=== PATIENT | female | born 1955 | race Caucasian/White ===

== ENCOUNTER 2023-07-12 09:14 | Outpatient (REF) | payer OTHER, SELFPAY ==
[2023-07-12 14:19] LABS: MANUAL DIFF FLAG NO
[2023-07-12 14:26] LABS: Basophils Percent Auto 1.2 % (0-2); Eosinophils Absolute Auto 0.1 X10*3/uL (0.0-0.4); Eosinophils Percent Auto 1.8 % (0-4); Hematocrit 37.7 % (37.0-47.0); Hemoglobin 12.5 g/dl (12.0-16.0); Imm Gran Abs Auto 0.01 X10*3/uL (0.00-0.03); Imm Gran Pct Auto 0.3 % (0.0-0.4); Lymphocytes Absolute Auto 0.9 X10*3/uL (1.2-4.9); Lymphocytes Percent Auto 28.2 % (20-40); Mean Corpuscular HGB Conc 33.2 g/dl (31.0-35.0); Mean Corpuscular Hemoglobin 30.8 pg (27.0-33.0); Mean Corpuscular Volume 92.9 fL (80.0-98.0); Mean Platelet Volume 11.3 fL (9.4-12.3); Monocytes Absolute Auto 0.2 X10*3/uL (0.1-1.2); Monocytes Percent Auto 7.2 % (2-11); Neutrophils Percent Auto 61.3 % (45-73); Platelet Count 134 X10*3/uL (160-400); Red Blood Count 4.06 X10*6/uL (4.20-5.50); Red Cell Distribution Width 12.3 % (11.0-16.0); White Blood Count 3.3 X10*3/uL (4.8-10.8)
[2023-07-12 14:35] LABS: Estimated Average Glucose 108 mg/dL; Hemoglobin A1c % 5.4 % (<6.0)
[2023-07-12 15:18] LABS: Alanine Aminotransferase 15 U/L (0-31); Alkaline Phosphatase 38 U/L (39-117); Anion Gap 12 (12-20); Aspartate Amino Transferase 15 U/L (5-31); Bilirubin Total 0.5 mg/dL (0.0-1.0); Blood Urea Nitrogen 16 mg/dL (9-16); Carbon Dioxide 26 mmol/L (22-29); Chloride 108 mmol/L (96-108); Cholesterol 191 mg/dL (<200); Estimated Glomerular Filt Rate > 60; Glucose Random 64 mg/dL (60-115); HDL Cholesterol 73 mg/dL (>40); LDL Cholesterol Calculated 111 mg/dL (<100); Potassium 4.2 mmol/L (3.3-5.1); Sodium 142 mmol/L (135-145); TSH reflex Free T4 0.49 uIU/mL (0.32-4.0); Total Protein 6.2 g/dL (6.5-8.0); Triglycerides 38 mg/dL (<150)
== END 2023-07-12 09:15 | disposition home or self-care (01) ==
LOC: HO.CHCLDS 09:14
PROVIDERS: Visit Provider Internal Medicine
DX: Z00.00 Encounter for general adult medical examination without abnormal findings (principal); Z13.6 Encounter for screening for cardiovascular disorders
CPT/HCPCS: 36415; 80053; 80061; 83036; 84443; 85025

== ENCOUNTER 2023-10-02 13:06 | Outpatient (AMB) | payer OTHER, SELFPAY ==
--- NOTE | 2023-10-02 13:13 | AM.OFFWIN_ITS ---
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 She states it has recently become raised and is changing. She states it has never scabbed off or bled but it is itchy. She has not had a skin check or seen a credit administration officer regarding it. [facility] Social History Patient Tobacco Use Status: Never used Tobacco Review of Systems Const All systems reviewed & are unremarkable except as noted in HPI and below Physical Exam Vital Signs: Last Vital Signs Temp 98.5 F 10/02/23 13:18 Pulse 72 10/02/23 13:18 BP 118/72 10/02/23 13:18 Pulse Ox 98 10/02/23 13:18 Oxygen Delivery Method Room Air 10/02/23 13:18 BMI result Body Mass Index 21.5 Const General: cooperative, healthy appearing, comfortable, no acute distress and well developed Orientation/consciousness: patient oriented x3 Limitations: no limitations HEENT Head: Yes normal to inspection Eyes General: appearance normal, both eyes and all related structures Resp Effort & Inspection: normal respiratory effort and able to speak in complete sentences Skin Other: 0.5 cm round lesion with irregular borders, raised, multiple colors of white, brown (scabbing) and peach. No surrounding erythema or warmth, no drainage or bleeding. Neuro General: patient oriented x3 Assessment & Plan Assessment & Plan (1) Skin lesion of chest wall: Code(s): L98.9 - Disorder of the skin and subcutaneous tissue, unspecified Plan: Sent urgent referral to [facility] as patient clearly needs biopsy. Advised if they cannot get her in quickly, we could change the referral to [facility] in [place]. Orders: Referrals Dermatology Referral L98.9 - Disorder of the skin and subcutaneous tissue, unspecified Coding Level of Care Code New Pt Level 3 (52671) Diagnoses Skin lesion of chest wall L98.9
[2023-10-02 13:18] VITALS: BP 118/72; PULSE 72; TEMP 36.9; O2SAT 98; BMI 21.5
== END 2023-10-02 14:18 | disposition home or self-care (01) ==
PROVIDERS: Visit Provider Physician Assistant
DX: L98.9 Disorder of the skin and subcutaneous tissue, unspecified (principal)
CPT/HCPCS: 99202

== ENCOUNTER 2023-10-29 11:46 | Outpatient (AMB) | payer OTHER, SELFPAY ==
--- NOTE | 2023-10-29 12:09 | A.OFFPC_ITS ---
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 She states it has recently become raised and is changing. She states it has never scabbed off or bled but it is itchy. She has not had a skin check or seen a heel washer stringing machine operator regarding it, and a referral has already been placed.. She has history of osteoporosis diagnosed approximately 3 years ago, was not placed on any medication by her previous PCP, has no history of fractures. Complains of painful bunions which has recurred both feet. Patient states that she has had a bunionectomy more than 10 years ago. Requesting to be referred to see a ball shagger. States that she has history of anxiety and depression which has been stable and controlled, is currently weaning herself off escitalopram, now down to 5 mg daily. [facility] Medical History (Updated 10/29/23 @ 12:46 by Donna Leroy MD) Osteoporosis Bilateral bunions Anxiety and depression Surgical History (Updated 10/29/23 @ 12:48 by Donna Leroy MD) History of bunionectomy of both great toes History of tonsillectomy History of tubal ligation History of appendectomy Family History (Updated 10/29/23 @ 12:50 by Donna Leroy MD) Mother Acute myocardial infarction Alcoholism Father Atrial fibrillation TIA (transient ischemic attack) Alcoholism Brother Alcoholism Acute myocardial infarction Sister Alcoholism Social History (Updated 10/29/23 @ 12:53 by Donna Leroy MD) Housing: Condominium Alcohol intake: former Year quit: Used Comment: Used to drink cocktails, quit 35 years Patient Tobacco Use Status: Former Tobacco user Years Smoked: 8 years , quit 35 years ago e-Cigarette/Vaping Use: Never Used Substance Use Type: Marijuana Cognitive needs: No Hearing needs: No Vision needs: No Questionnaire PHQ-9 Over the last 2 weeks, how often have you been bothered by any of the following problems? 1. Little interest or pleasure in doing things: not at all 2. Feeling down, depressed, or hopeless: not at all 3. Trouble falling or staying asleep, or sleeping too much: not at all 4. Feeling tired or having little energy: not at all 5. Poor appetite or overeating: not at all 6. Feeling bad about yourself - or that you are a failure or have let yourself or your family down: not at all 7. Trouble concentrating on things, such as reading the newspaper or watching television: not at all 8. Moving or speaking so slowly that other people could have noticed. Or the opposite - being so fidgety or restless that you have been moving around a lot more than usual: not at all 9. Thoughts that you would be better off or of hurting yourself in some way : not at all Total score: 0 Depression Screening Interpretation: Negative Depression Screening Done: Yes 93456 - PHQ-9 Billing: Yes Source: Developed by Drs. Lamine Fong, Cecily Minor, Jerome Torre and colleagues, with an educational eva from [employer]. Thrive Questionnaire Date Thrive assessed: 10/29/23 I am a: Patient What is your living situation today?: I have a steady place to live Within the past 12 months, did the food you bought not last and you didn't have the money to get more?: Never true Within the past 12 months, did you worry whether your food would run out before you got money to buy more?: Never true Do you have trouble paying for medicines?: No Do you have trouble getting transportation to medical appointments?: No Do you have trouble paying your heating and electricity bill?: No Do you have trouble taking care of your child, family member or friend?: No Do you have trouble with day-to-day activities such as bathing, preparing meals, shopping, managing finances, etc.?: No Are you currently unemployed and looking for a job?: No Are you interested in more education?: No Please select the resources that you would like help with: None Currently or been in a relationship where the following occur: No concerns reported THRIVE Score: 0 MARIA ANTONIA-7 AMB Questionnaire MARIA ANTONIA-7 Date MARIA ANTONIA - 7 assessed: 10/29/23 Feeling nervous, anxious, or on edge: 0 = Not at all Not being able to stop or control worryin = Not at all Worrying too much about different things: 0 = Not at all Trouble relaxin = Not at all Being so restless that it is hard to sit still: 0 = Not at all Becoming easily annoyed or irritable: 0 = Not at all Feeling afraid as if something awful might happen: 0 = Not at all Total MARIA ANTONIA-7 score (0-4 normal; 5-9 mild; 10-14 moderate; 15-21 severe): 0 Source: Developed by Drs. Lamine Fong, Ceciyl Minor, Jerome Torre and colleagues, with an educational eva from [employer]. MARIA ANTONIA-7 Assessment Billing MARIA ANTONIA-7 Assessment Tool: MARIA ANTONIA-7 Assessment 99744 Review of Systems Const Denies body aches, Denies fatigue, Denies fever(s) and Denies headache(s) Eyes Denies itchy eyes and Reports requires corrective lenses ENT Denies dizziness, Denies headache(s) and Denies nasal congestion Card Denies chest pain, Denies lightheadedness, Denies palpitations and Denies dyspnea Resp Denies chest congestion, Denies cough, Denies dyspnea and Denies wheezing GI Denies abdominal pain, Denies change in bowel habits and Denies heartburn Denies urinary frequency, Denies dysuria and Denies urinary urgency Musc Reports no additional complaints Skin/Breast Denies breast pain, Denies breast mass, Denies lesions and Denies rash Neuro Denies dizziness and Denies headache(s) Psych Reports no additional complaints Endo Denies fatigue, Denies polydipsia, Denies polyuria and Denies palpitations Aller/Immun Denies itchy eyes, Denies seasonal rhinorrhea and Denies wheezing Physical exam (Primary Care) Vital Signs: Last Vital Signs Pulse 65 10/29/23 12:12 BP 102/70 10/29/23 12:12 Pulse Ox 98 10/29/23 12:12 Oxygen Delivery Method Room Air 10/29/23 12:12 BMI result Body Mass Index 21.8 Tobacco/Smoking Status: Tobacco use Status Tobacco use date assessed 10/29/23 10/29/23 12:12 Patient Tobacco Use Status Former Tobacco user 10/29/23 12:53 e-Cigarette/Vaping Use Never Used 10/29/23 12:53 PHQ-9: PHQ-9 Score PHQ-9: Total score 0 11/03/23 23:47 Depression Screening Interpretation: Negative Thrive Assessment: Date of Thrive Assessment Date Thrive assessed 10/29/23 10/29/23 12:17 Currently or been in a relationship where the following occur: No concerns reported Const General: no acute distress and alert Orientation/consciousness: patient oriented x3 HENMT Head: Yes normocephalic Ears: external ears normal General nose exam: Normal external nose present Face and sinus: Yes face symmetric Mouth: oropharynx normal and moist mucous membranes Eyes General: appearance normal, both eyes and all related structures Neck Neck: Yes full ROM, Yes no lymphadenopathy and Yes supple Resp Effort & Inspection: normal respiratory effort and able to speak in complete sentences Auscultation: clear to auscultation bilaterally Cardio Rate: regular rate Rhythm: regular rhythm Heart sounds: S1 normal heart sound present and S2 normal heart sound present GI Palpation (GI): Soft to palpation, nontender, no guarding and no masses Auscultation: normal bowel sounds General: Yes no CVA tenderness Back/Spine/Pelvis Back: no CVA tenderness and No back tenderness Skin Other: Slightly raised crusted lesion with irregular margins over lower sternum, normal surrounding skin, area nontender to palpation Neuro General: patient oriented x3, gait normal, moves all extremities, Normal light touch and pain sensation, no focal motor deficits and CN's II-XI intact bilaterally Cognition (Neuro): normal cognition Gait exam (Neuro): Normal gait present Motor exam (neuro): 5/5 motor strength present throughout Extrem Other: Enlarged MTP joint bilateral, area slightly tender to palpate General: Yes normal to inspection, Yes full ROM, Yes no joint enlargement, Yes no pedal edema and Yes normal gait Psych Appearance: grossly normal and well kempt Mental Status: mental status grossly normal Speech and movement: Normal speech and movement present Affect: normal affect Attitude: cooperative Thought process: Normal thought process present Thought content: Normal thought content present Assessment and Plan Assessment & Plan (1) Bilateral bunions: Code(s): M21.611 - Bunion of right foot; M21.612 - Bunion of left foot Plan: Podiatry consult ordered (2) Osteoporosis: Comment: Diagnosed approximately 2-3 years ago currently not on any medication, no his tory of fracture. Does not want Fosamax Code(s): M81.0 - Age-related osteoporosis without current pathological fracture Plan: Follow-up bone density scan ordered. In the meantime continue with doing regular weight-bearing exercise, take adequate calcium from dietary sources and take vitamin-D 3 supplements 2000 units daily. (3) Skin lesion of chest wall: Code(s): L98.9 - Disorder of the skin and subcutaneous tissue, unspecified Plan: Referral was already made to see heel washer stringing machine operator for further evaluation management, currently waiting for appointment schedule Orders: Orders XR DEXA axial skeleton 10/29/23 M81.0 - Age-related osteoporosis without current pathological fracture Referrals Podiatry Referral M21.611 - Bunion of right foot, M21.612 - Bunion of left foot Coding Level of Care Code New Pt Level 4 (18562) Diagnoses Bilateral bunions M21.611; M21.612 Osteoporosis M81.0 Skin lesion of chest wall L98.9 Additional Codes MARIA ANTONIA-7 Assessment Billing - MARIA ANTONIA-7 Assessment Tool: MARIA ANTONIA-7 Assessment 60304 ([id number])
[2023-10-29 12:12] VITALS: BP 102/70; PULSE 65; O2SAT 98; BMI 21.8
== END 2023-10-29 15:32 | disposition home or self-care (01) ==
PROVIDERS: Visit Provider Internal Medicine
DX: M21.611 Bunion of right foot (principal); M21.612 Bunion of left foot; M81.0 Age-related osteoporosis without current pathological fracture; L98.9 Disorder of the skin and subcutaneous tissue, unspecified
CPT/HCPCS: 99214

== ENCOUNTER 2023-11-21 12:59 | Outpatient (REF) | payer OTHER, SELFPAY ==
--- NOTE | ~2023-11-21 | MM_ITS ---
EXAMINATION: BONE DENSITOMETRY CLINICAL INDICATION: Age-related osteoporosis without current pathological fracture. COMPARISON: This is the patient's baseline examination. TECHNIQUE: Using a ChangeTip DXA System (software version: 13.1) manufactured by [employer], dual-energy x-ray absorptiometry was performed of the lumbar spine and left hip. The images are of good technical quality. Summary results are attached. FINDINGS: LEFT FEMUR, NECK: BMD 0.561 g/cm2, Z-score -1.6, T-score -3.4, osteoporosis. LEFT FEMUR, TOTAL: BMD 0.540 g/cm2, Z-score -2.1, T-score -3.7, osteoporosis. AP SPINE L1-L4: BMD 0.743 g/cm2, Z-score -1.7, T-score -3.6, osteoporosis. IDENTIFIED RISK FACTORS: Menopause, osteoporosis, parental hip fracture. HISTORY OF FRACTURE: None listed. MEDICATIONS: Vitamin D. MM/XR DEXA axial skeleton IMPRESSION: 1. DIAGNOSIS: Osteoporosis based on the lowest T-score value of -3.7 in the total femur applying World Health Organization criteria. 2. 10-YEAR FRACTURE RISK PREDICTION, FRAX: According to the guidelines, FRAX calculation should only be performed on patients in the osteopenia bone density category. Therefore, FRAX was not performed on this patient. 3. Treatment Recommendations: NOF guidelines recommend consideration for treatment in postmenopausal women and men age 50 and older presenting with the following: -A hip or vertebral (clinical or morphometric) fracture. -T-score less than or equal to -2.5 at the femoral neck or spine after appropriate evaluation to exclude secondary causes. -Low bone mass at the hip or spine and a 10-year fracture probability by FRAX of greater than or equal to 3% for hip fracture or greater than or equal to 20% for major osteoporotic fracture based on the [place] adapted WHO algorithm. 4. Other Recommendations: All treatment decisions require clinical judgment and consideration of individual patient factors, including patient preferences, comorbidities, previous drug use, risk factors not captured in the FRAX model (e.g. frailty, falls, vitamin D deficiency, increased bone turnover, interval significant decline in bone density) and possible under or overestimation of fracture risk by FRAX. Additional medical evaluation for secondary cause of low bone mineral density may be appropriate. FUTURE SCAN RECOMMENDATION: People with diagnosed cases of osteoporosis or at high risk for fracture should have regular bone mineral density tests. For patients eligible for Medicare, routine testing is allowed once every 2 years. The testing frequency can be increased to one year for patients who have rapidly progressing disease, those who are receiving or discontinuing medical therapy to restore bone mass, or have additional risk factors.
== END 2023-11-21 13:00 | disposition home or self-care (01) ==
LOC: HO.MAMMO 12:59
PROVIDERS: PCP Internal Medicine; Visit Provider Internal Medicine
DX: M81.0 Age-related osteoporosis without current pathological fracture (principal); Z78.0 Asymptomatic menopausal state
CPT/HCPCS: 77080

== ENCOUNTER 2023-11-23 07:57 | Outpatient (AMB) | payer OTHER, SELFPAY ==
--- NOTE | 2023-11-23 08:08 | AM.OFFWIN_ITS ---
Intake Vital Signs 11/23/23 08:10 Weight 127 lb BP 110/70 Blood Pressure Location Lt brachial Position Sitting Pulse 64 Pulse Source Pulse Oximeter Pulse Oximetry (%) 94 Oxygen Delivery Method Room Air Intake Visit Reasons: Cant hear Intake Note: Patient here for bilat ear hearing loss, could be ear wax. Patient Tobacco Use Status: Former Tobacco user Allergies No Known Allergies Allergy (Verified 11/23/23 08:10) Do you need a note to return to daycare/school/sports/work: No HPI Cant hear HPI Details This note is constructed using voice recognition software. While every effort has been made to ensure accuracy, chainsaw mechanic errors may have been included. The patient is a 59 year old for who presents to the clinic today with bilateral hearing loss for the past several months. She reports that she has had a history with cerumen impaction in the past, and has had irrigations. Her son pointed out that she is requiring the TV to be much louder than normal, so she decided to be seen. She denies fever, chills, cough, shortness of breath, injury to the ear. She has not been evaluated for hearing loss in the past. [facility] Medical History (Updated 10/29/23 @ 12:46 by Donna Leroy MD) Osteoporosis Bilateral bunions Anxiety and depression Surgical History (Updated 10/29/23 @ 12:48 by Donna Leroy MD) History of bunionectomy of both great toes History of tonsillectomy History of tubal ligation History of appendectomy Family History (Updated 10/29/23 @ 12:50 by Donna Leroy MD) Mother Acute myocardial infarction Alcoholism Father Atrial fibrillation TIA (transient ischemic attack) Alcoholism Brother Alcoholism Acute myocardial infarction Sister Alcoholism Social History (Updated 10/29/23 @ 12:53 by Donna Leroy MD) Housing: Condominium Alcohol intake: former Year quit: Used Comment: Used to drink cocktails, quit 35 years Patient Tobacco Use Status: Former Tobacco user Years Smoked: 8 years , quit 35 years ago e-Cigarette/Vaping Use: Never Used Substance Use Type: Marijuana Cognitive needs: No Hearing needs: No Vision needs: No Review of Systems Const All systems reviewed & are unremarkable except as noted in HPI and below Physical Exam Vital Signs: Last Vital Signs Pulse 64 07/26/24 08:10 BP 110/70 11/23/23 08:10 Pulse Ox 94 11/23/23 08:10 Oxygen Delivery Method Room Air 11/23/23 08:10 Const General: cooperative, healthy appearing, comfortable and no acute distress Orientation/consciousness: patient oriented x3 HEENT Head: Yes normal to inspection and Yes normocephalic Ears: EAC's normal, mastoids normal and unable to visualize TM (cerumen impaction) on the left General nose exam: Normal external nose present Face and sinus: Yes normal facial exam Resp Effort & Inspection: normal respiratory effort and able to speak in complete sentences Neuro General: patient oriented x3 Office Procedures Cerumen Removal From which ear canal was the cerumen removed: left Removal: irrigation Notes: patient tolerated procedure well [id number] Irrigation/Lavage Assessment & Plan Assessment & Plan (1) Hearing loss of both ears: Code(s): H91.93 - Unspecified hearing loss, bilateral Qualifiers: Hearing loss type: unspecified Qualified Code(s): H91.93 - Unspecified hearing loss, bilateral Plan: Cerumen impaction on the left may contribute partially, however there is no cer umen impaction on the right and she reports hearing loss on that side as well. Advised follow up with PCP in consideration of referral to learning support specialist or audiology. (2) Impacted cerumen, left ear: Code(s): H61.22 - Impacted cerumen, left ear Plan: In office irrigation successful of left ear. Patient tolerated well. Plan See above for full details and plan. Coding Level of Care Code Est Pt Level 4 (19560) Diagnoses Bilateral hearing loss, unspecified hearing loss type H91.93 Hearing loss type: unspecified Impacted cerumen, left ear H61.22 CPT Codes Office Procedure - CPT: 42411-Wxg Irrigation/Lavage ([id number])
[2023-11-23 08:10] VITALS: BP 110/70; PULSE 64; O2SAT 94
== END 2023-11-23 08:42 | disposition home or self-care (01) ==
PROVIDERS: PCP Internal Medicine; Visit Provider Registered Nurse
DX: H91.93 Unspecified hearing loss, bilateral (principal); H61.22 Impacted cerumen, left ear
CPT/HCPCS: 69209; 99213

== ENCOUNTER 2024-01-04 07:59 | Outpatient (AMB) | payer OTHER, SELFPAY ==
[2024-01-04 08:05] VITALS: BP 110/72; PULSE 66; TEMP 36.6; O2SAT 99; BMI 20.9
--- NOTE | 2024-01-04 08:05 | MHC.OFFWIV ---
Intake Vital Signs 01/04/24 08:05 Height 5 ft 4 in Weight 122 lb BMI 20.9 BP 110/72 Blood Pressure Location Lt brachial Position Sitting Pulse 66 Pulse Source Pulse Oximeter Temp 97.8 F Temp Source Oral Pulse Oximetry (%) 99 Oxygen Delivery Method Room Air Intake Visit Reasons: EP Cold symptoms,heavy in chest Intake Note: Patient here for chest heaviness and congestion. she states it has been present for about 1 week and is getting better but would like a chest xray. Patient Tobacco Use Status: Former Tobacco user Allergies No Known Allergies Allergy (Verified 01/04/24 08:08) Do you need a note to return to daycare/school/sports/work: No HPI HPI Comments History of Present Illness Details Patient is a 68-year-old female complaining of a week of a sore throat, chest congestion, a productive cough and chest heaviness. She states she has been inhaling steam 3 to 4 times a day to try to clear up her head congestion and it seems to be working because she feels much better today than she did even just 2 or 3 days ago. She denies any fevers nausea or vomiting [facility] Medical History (Updated 01/04/24 @ 08:28 by Sendy Uribe PA-C) Bilateral hearing loss Osteoporosis Bilateral bunions Anxiety and depression Surgical History (Updated 10/29/23 @ 12:48 by Donna Leroy MD) History of bunionectomy of both great toes History of tonsillectomy History of tubal ligation History of appendectomy Family History (Updated 10/29/23 @ 12:50 by Donna Leroy MD) Mother Acute myocardial infarction Alcoholism Father Atrial fibrillation TIA (transient ischemic attack) Alcoholism Brother Alcoholism Acute myocardial infarction Sister Alcoholism Social History (Updated 10/29/23 @ 12:53 by Donna Leroy MD) Housing: Condominium Alcohol intake: former Year quit: Used Comment: Used to drink cocktails, quit 35 years Patient Tobacco Use Status: Former Tobacco user Years Smoked: 8 years , quit 35 years ago e-Cigarette/Vaping Use: Never Used Substance Use Type: Marijuana Cognitive needs: No Hearing needs: No Vision needs: No Review of Systems Const All systems reviewed & are unremarkable except as noted in HPI and below Physical Exam Vital Signs: Last Vital Signs Temp 97.8 F 01/04/24 08:05 Pulse 66 01/04/24 08:05 BP 110/72 01/04/24 08:05 Pulse Ox 99 01/04/24 08:05 Oxygen Delivery Method Room Air 01/04/24 08:05 BMI result Body Mass Index 20.9 Const General: cooperative, healthy appearing, comfortable and no acute distress Orientation/consciousness: patient oriented x3 Limitations: no limitations HEENT Head: Yes normal to inspection Ears: hearing grossly normal bilaterally, external ears normal and TM's normal bilaterally General nose exam: Normal external nose present, Normal nares present and No nasal discharge present Face and sinus: Yes normal facial exam Mouth: Normal oral and palatal mucosa present and moist mucous membranes Throat: Yes tonsils normal, Yes uvula midline and Yes posterior oropharynx abnormal (Erythema) Eyes General: appearance normal, both eyes and all related structures Neck Neck: Yes normal visual inspection Resp Effort & Inspection: normal respiratory effort, able to speak in complete sentences, no respiratory distress, not tachypneic, no tripod positioning and no use of accessory muscles Auscultation: clear to auscultation bilaterally Cardio Rate: regular rate Rhythm: regular rhythm Heart sounds: normal S1 and S2 Skin General skin exam: no rashes or lesions noted Neuro General: patient oriented x3 Extrem General: Yes normal to inspection and Yes no clubbing, cyanosis or edema Assessment & Plan Assessment & Plan (1) URI (upper respiratory infection): Code(s): J06.9 - Acute upper respiratory infection, unspecified Qualifiers: URI type: unspecified viral URI Qualified Code(s): J06.9 - Acute upper respiratory infection, unspecified Plan: Sent flu COVID and RSV, vital signs are stable, lung sounds are clear, no indication for a chest x-ray. Recommended patient continue doing what she is doing with [id number] medications and steam. Plan see above Coding Level of Care Code Est Pt Level 3 (49779) Diagnoses Viral upper respiratory tract infection J06.9 URI type: unspecified viral URI
== END 2024-01-04 08:27 | disposition home or self-care (01) ==
PROVIDERS: PCP Internal Medicine; Visit Provider Physician Assistant
DX: J06.9 Acute upper respiratory infection, unspecified (principal)
CPT/HCPCS: 99213

== ENCOUNTER 2024-01-04 10:36 | Outpatient (REF) | payer OTHER, SELFPAY ==
[2024-01-04 11:46] LABS: Influenza A PCR NEGATIVE (Negative); Influenza B PCR NEGATIVE (Negative); Resp Syncy Virus RNA Qual PCR NEGATIVE (Negative); SARS COV2 PCR INHOUSE NEGATIVE (Negative)
== END 2024-01-04 10:37 | disposition home or self-care (01) ==
LOC: HO.HMGCLNP 10:36
PROVIDERS: Visit Provider Physician Assistant
DX: J06.9 Acute upper respiratory infection, unspecified (principal)
CPT/HCPCS: 0241U

== ENCOUNTER → 2024-02-14 13:30 | Outpatient (BNV) | payer OTHER, SELFPAY | PROVIDERS: PCP Internal Medicine; Visit Provider Internal Medicine | DX: Z12.31 Encounter for screening mammogram for malignant neoplasm of breast (principal) | CPT/HCPCS: 77063; 77067 ==

== ENCOUNTER 2024-02-14 13:31 | Outpatient (REF) | payer OTHER, SELFPAY ==
--- NOTE | ~2024-02-14 | MM_ITS ---
EXAMINATION: MM SCREENING DIGITAL BREAST TOMOSYNTHESIS, BILATERAL CLINICAL INFORMATION: Screening. Asymptomatic. COMPARISON: Mammography: Comparison is made with available priors TECHNIQUE: Digital breast mammography with tomosynthesis is performed in both the craniocaudal and mediolateral oblique views along with computer-aided detection (CAD). FINDINGS: The breasts are heterogeneously dense, which may obscure small masses (ACR BI-RADS breast composition Category c). There are no significant masses, abnormal calcifications, or other abnormalities. MM/MM tomosynthesis screening BI IMPRESSION: No mammographic evidence of malignancy. ASSESSMENT: BI-RADS BI-RADS 1 - Negative RECOMMENDATION: Routine annual mammography screening. 1 year F/U This examination should not preclude the clinical evaluation of a suspicious palpable abnormality. This patient's information was entered into a reminder system with a target due date for their next mammogram. Electronically signed by: Damaris Heard DO 02/26/2024 12:27 PM EDT
== END 2024-02-14 13:32 | disposition home or self-care (01) ==
LOC: HO.MAMMO 13:31
PROVIDERS: PCP Internal Medicine; Visit Provider Nurse Practitioner Family
DX: Z12.31 Encounter for screening mammogram for malignant neoplasm of breast (principal)
CPT/HCPCS: 77063; 77067

== ENCOUNTER 2024-04-09 09:41 | Outpatient (AMB) | payer OTHER, SELFPAY ==
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
[2024-04-09 10:07] VITALS: BP 104/70; PULSE 60; O2SAT 96; BMI 21.1
--- OUTSIDE RECORDS SUMMARY | 2024-04-09 23:52 | XMS_ITS | Patient Health Record ---
Author Organization [facility] Address [address] [place] [address] Care Team Providers Care Assistant Basketball Coach Name Role Phone Mariaa CLIFTON, Donna Kevin Primary Care Provider Un available Becky Johnson Unavailable [phone] Erica Iglesias Unavailable [phone] Allergies Allergen (clinical drug ingredient) Drug/Non Drug Allergy documented on EMR Reaction Allergy Type Onset Date Status codeine Codeine Unknown Drug Allergy Active Results Component Value Reference Range Notes X ray : Foot, left 3V Reviewed date:03/31/2024 04:46:51 PM Interpretation:See Examination above Performing Lab: Notes/Report: See Examination above X ray : Foot, right 3V Reviewed date:03/31/2024 04:47:00 PM Interpretation:See Examination above Performing Lab: Notes/Report: See Examination above Reason For Referral Diagnosis 1 Pain in unspecified foot (M79.673) Referring Provider First Name Donna Mckeon Referring Provider Last Name Mariaa Referring Provider Speciality Internal M edicine [facility] Referred Provider Erica Iglesias Referred Address [address] ,[place], [place],[address], Referred Provider Specialty Podiatry Referral Priority Routine Diagnosis 1 Hallux valgus (acqui red), left foot (M20.12) Diagnosis 2 Hallux valgus (acqui red), right foot (M20.11) Diagnosis 3 Hammertoe of right f oot (M20.41) Diagnosis 4 Hammertoe of left fo ot (M20.42) Diagnosis 5 Bursitis of right fo ot (M77.51) Diagnosis 6 Bursitis of left arnold t (M77.52) Diagnosis 7 Pain in right ankle and joints of right foot (M25.571) Diagnosis 8 Pain in left ankle a nd joints of left foot (M25.572) Diagnosis 9 Pain in right foot ( M79.671) Diagnosis 10 Pain in left foot (M 79.672) Referring Provider First Name Donna Mckeon Referring Provider Last Name Mariaa Referring Provider Speciality Internal M edicine [facility] Referred Provider Becky Johnson Referred Address [address] [place], [place],[address], Referred Provider Specialty Podiatry Referral Priority Routine Medications Medication SIG (Take, Route, Frequency, Duration) Notes Start Date End Date Status Escitalopram Oxalate 5 MG 1 tablet Orally Once a day Active Social History Tobacco Use: Social History Observation Description Date Details (start date - stop date) Former Smoker NA - NA Tobacco Use/Smoking Question Answer Notes Are you a: former smoker Additional Findings: Tobacco Non-User Current no n-smoker Alcohol Screen Question Answer Notes Did you have a drink containing alcohol in the p ast year? No Points 0 Interpretation Negative Tobacco use other than smoking: Question Answer Notes Are you an other tobacco user? No Problems Problem Type SNOMED Code ICD Code Onset Dates Problem Status W/U Status Risk Notes Problem Acquired hallux valgus (99290747) Hallux valgus (acquired), left foot (M20.12) Active confirmed Problem Acquired hallux valgus (71507394) Hallux valgus (acquired), right foot (M20.11) Active confirmed Problem 679879798 Hammertoe of left foot (M20.42) Active confirmed Problem 543904689 Hammertoe of right foot (M20.41) Active confirmed Vital Signs Blood pressure diastolic 70 mm Hg 03/31/2024 Height 5 ft 4 in in 03/31/2024 Blood pressure systolic 120 mm Hg 03/31/2024 Weight 127 lbs 03/31/2024 BMI 21.8 kg/m2 03/31/2024 Encounters Encounter Location Date Provider Diagnosis [facility] [address] [place] [address] 03/31/2024 Erica Black Pain in left foot M79.672 ; Hallux valgus (acquired), right foot M20.11 ; Pain in left ankle and joints of left foot M25.572 ; Bursitis of left foot M77.52 ; Hallux valgus (acquired), left foot M20.12 ; Pain in right foot M79.671 ; Pain in right ankle and joints of right foot M25.571 ; Bursitis of right foot M77.51 ; Medial crossover toe, left foot M20.5X2 ; Medial crossover toe, right foot M20.5X1 ; Hammertoe of right foot M20.41 and Hammertoe of left foot M20.42 [facility] [address] [place] [address] 12/20/2023 Erica Iglesias Assessments Encounter Date Diagnosis (ICD Code) Assessment Notes Treatment Notes Treatment Clinical Notes Section Notes 03/31/2024 Pain in left foot (ICD-10 - M79.672) 03/31/2024 Hallux valgus (acquired), right foot (ICD-10 - M20.11) 03/31/2024 Pain in left ankle and joints of left foot (ICD-10 - M25.572) 03/31/2024 Bursitis of left foot (ICD-10 - M77.52) 03/31/2024 Hallux valgus (acquired), left foot (ICD-10 - M20.12) 03/31/2024 Pain in right foot (ICD-10 - M79.671) 03/31/2024 Pain in right ankle and joints of right foot (ICD-10 - M25.571) 03/31/2024 Bursitis of right foot (ICD-10 - M77.51) 03/31/2024 Medial crossover toe, left foot (ICD-10 - M20.5X2) 03/31/2024 Medial crossover toe, right foot (ICD-10 - M20.5X1) 03/31/2024 Hammertoe of right foot (ICD-10 - M20.41) 03/31/2024 Hammertoe of left foot (ICD-10 - M20.42) Plan Of Treatment Next Appt Details Provider Name:Becky madden, 06/11/2024 03:00:00 PM, [address] [place], [address], Insurance Providers Payer Name Payer Address Payer Phone Subscriber Number Group Number Insured Name Patient Relationship to Insured Coverage Start Date Coverage End Date [facility] [address] [place] [phone] [id number] Kori Barron Self - patient is the insured Medical (General) History Medical History History ICD Code Anxiety covid-19 Depression Osteoporosis Reflux ( GERD) Measles Chicken pox Mumps Surgical History Surgery Date(Month/Year) appendectomy 1969 tonsillectomy 1960 bunionectomy 1989
--- OUTSIDE RECORDS SUMMARY | 2024-04-09 23:52 | XMS_ITS ---
Author Organization [facility] Address [address] [place] [address] Care Team Providers Care Pathologist Assistant Name Role Phone Mariaa CLIFTON, Donna Kevin Primary Care Provider Un available Becky Johnson Unavailable [phone] Black, Erica Unavailable [phone] REASON FOR VISIT FACETER PPWK Entered Encounters Encounter Location Date Provider Diagnosis [address] [address] 12/20/2023 Ericabob Iglesias Plan Of Treatment Next Appt Details Provider Name:Becky madden, 06/11/2024 03:00:00 PM, [address] [place] [address], [address], Progress Notes * Irvin BARRONOB:1955 ( 67 yo F)Acc No.[id number]:12/20/2023 Patient:?Kori Barron :1955???Age:67 Y???Sex:Female Address:[address] [place] [address] [address] , [place] [address] * true * Date:? Generated for Printi ng/Faxing/eTransmitting on:?04/09/2024 11:52 PM EST
--- OUTSIDE RECORDS SUMMARY | 2024-04-09 23:52 | XMS_ITS ---
Author Organization [facility] Address [address] [place] [address] Care Team Providers Care Casing Fluid Tender Name Role Phone Mariaa CLIFTON, Donna Kevin Primary Care Provider Un available Perica, Becky Unavailable [phone] Black, Erica Unavailable [phone] Allergies Allergen (clinical drug ingredient) Drug/Non Drug [...] above Performing Lab: Notes/Report: See Examination above REASON FOR VISIT Pcp-01/21, Foot pain Medications Medication SIG (Take, Route, Frequency, Duration) [...] Status Risk Notes Problem Acquired hallux valgus (48100256) Hallux valgus (acquired), left foot (M20.12) Active confirmed Problem Acquired hallux valgus (36035673) Hallux valgus (acquired), right foot (M20.11) Active confirmed Problem 442109710 Hammertoe of right foot (M20.41) Active confirmed Problem 702595229 Hammertoe of left foot (M20.42) Active confirmed Vital Signs Height 5 ft 4 in in 03/31/2024 Weight 127 lbs 03/31/2024 BMI 21.8 kg/m2 03/31/2024 Blood pressure systolic 120 mm Hg 03/31/20 24 Blood pressure diastolic 70 mm Hg 024 Encounters Encounter Location Date Provider Diagnosis [facility] [address] [address] 03/31/2024 Erica Black Pain in left foot [...] M20.41 and Hammertoe of left foot M20.42 Assessments Encounter Date Diagnosis (ICD Code) Assessment [...] M20.42) Plan Of Treatment Next Appt Details Follow Up: prn, Reason: Provider Name:Becky madden, 06/11/2024 03:00:00 PM, [address] [place], [address], Progress Notes * Kori BARRON LDOB:1955 (68 yo F)Acc No.[id number]:03/31/2024 Progress Notes Patient:?Kori BARRON Provider:?Erica Iglesias DPM :1955???Age:68 Y???Sex:Female D ate:03/31/2024 Address:[address] [place], [place] [id number] Pcp:Amena Ramos Subjective: * Chief Complaints: * ???Pcp-01/21Foot pain * HPI: ???Foot Pain:?Location:?Inside, Great toe joint, B/L.?Duration:?, several years.?Course:?worse.?Aggravated:?any pressure.?Treatments:?rest/alter normal daily activity, previous sx 20 years ago b/l.? * ROS:?General/Constitutional:?Nausea?denies.?Vomiting?denies.?Hunger Thirst?denies.?Loss appetite?admits.?Chills?denies.?Fatigue?denies.?Fever?denies.?Night Sweats?denies.?Unexplained weight loss?denies.?Unexplained weight gain?denies.?HEENTM:?Dentures?denies.?Dizziness?denies.?Glasses/contacts?admits.?Retinopathy?de nies.?Blurred/double vision?denies.?TMJ?admits.?Discharge/drainage?denies.?Implants?denies.?Sore throat?denies.?Dental implants?admits.?Hard of hearing ?denies.?Difficulty chewing/swallowing/speaking?denies.?Nose bleeds?denies.?Sore mouth?denies.?Respiratory:?On Oxygen?denies.?Pneumonia/pleurisy?denies.?Bronchitis?denies.?Emphysema?denies.?C oughing?denies.?Cough blood?denies.?Shortness of breath?denies.?Wheezing?denies.?Cardiovascular:?Pacemaker?denies.?MVP?denies.?WPW?denies.?CHF?denies.?Heart attack?denies.?Septal defect?denies.?Rapid beat?denies.?Chest pain ?denies.?Atrial Fib.?denies.?Murmur/Palpitations?denies.?Gastrointestinal:?Hemorrhoids?denies.?Stomach/Abdominal pain?denies.?Dark blood stool?denies.?Irritable bowel ?admits.?Constipation?denies.?Diarrhea?denies.?Hematology:?Swelling?denies.?Clots?denies.?Varicose Veins?denies.?Bruising?denies.?Bleeding problem?denies.?Genitourinary:?Blood urine?denies.?Frequent/Painfu/urination/bladder control?denies.?Kidney stones?denies.?Infection (UTI)?denies.?Nephropathy?denies.?sex trans dis (STD)?denies.?Prostate?denies.?Musculoskeletal:?Hammertoes?admits.?Bunions?admits.?Back Pain?denies.?Muscle Cramps/ Resting?denies.?Muscle cramps / walking?denies.?Generalized aches and pains?denies.?Weakness?denies.?Integ.:?Romeo?denies.?Scars?denies.?Corns/calluses?admits.?Ingrown nails?denies.?Painful nails?denies.?Open Sores?denies.?Rashes?denies.?Neurologic:?Difficulty sleeping?denies.?Brain disorder?denies.?Numbness?denies.?Balance trouble?denies.?Confusion?denies.?Fainting/blackouts?denies.?Tingling?denies.?Tr emors?denies.? * Medical History:? * Surgical History:?appendecto my 1970tonsillectomy 1959bunionectomy 1989 * Hospitalization/Major Diagno stic Procedure:?Denies Past Hospitalization * Family History:?Mother: dece ased, diagnosed with Unspecified heart disease.?Father: , diagnosed with Unspecified heart disease.?Siblings: cancer.? * Social History:?Tobacco Use:?Tobacco Use/Smoking?Are you a:?former smoker ?Additional Findings: Tobacco Non-User?Current non-smoker ?Tobacco use other than smoking?Are you an other tobacco user??No ???Drugs/Alcohol:?Drugs?Have you used drugs other than those for medical reasons in the past 12 months??No ?Alcohol Screen?Did you have a drink containing alcohol in the past year??No ?Points?0 ?Interpretation?Negative ???Miscellaneous:?Caffeine: no. ?Children: yes, 2. ?Exercise: yes, playing guitar, bones and balance classes, bike riding, reading. ?Marital status: . * Medications:?TakingEscitalop lynne Oxalate 5 MG Tablet 1 tablet Orally Once a day Medication List reviewed and reconciled with the patientTaking Escitalopram Oxalate 5 MG Tablet 1 tablet Orally Once a day Medication List reviewed and reconciled with the patient * Allergies:?Codeineyes[Allerg ies Verified] Objective: * Vitals:?Ht: 5 ft 4 in, Wt:12 7, BMI:21.8, Shoe size: 9-9.5, BP:120/70mm Hg, Ht- cm: 162.56 cm, Wt-k.61 kg. * Examination: ???General Examination: ?GENERAL APPEARANCE:?Reveals a pleasant, alert, well nourished, well- developed, well hydrated individual, who demonstrates proper attention to hygiene/body habitus, and is in no acute distress, Pt serves as own historian for office visit today.?ORIENTED:?person, place, and time.?Orthopedic: ?MUSCLE STRENGTH:?5/5 all groups in a symmetrical fashion, B/L.?GAIT ABNORMALITY:?Pronated, abducted angle and base of gate, B/L.?FOOT MORPHOLOGY:?Pes Planus structure, Semi-rigid, B/L.?BUNION:? Medially prominent 1st MPJ, (+) Pain on palpation, inflammation present medially, Lateral tracking 1st MPJ incompletely reducible, R< L , Limited 1st MPJ Dorsal ROM,Limited 1st MPJ Plantar ROM b/l.?DIGITAL DEFORMITIES:?Digital contracture, PIPJ, 2-5 B/L, incompl-reducible with WB, or to push-up test overlapping 2nd digits b/l, medial drift to digits 2-5 b/l R>L.?Neurological: ?SENSORY:?Neurological exam reveals intact sensorium, pain sensation normal, vibration sensation intact, pinprick sensation is normal in the lower extremities, Pt denies, anesthesia, burning, paresthesia, tingling, B/L.?TINEL'S COMPRESSION:? Negative, Saphenous nerve distribution, B/L.?Vascular: ?DP PULSES(B):?2/4, B/L.?PT PULSES(B):?2/4, B/L.?CAPILLARY FILL TIME:?immediate, all digits, B/L.?TROPHIC CONDITION-TEXTURE/ELASTICITY/TURGOR/HAIR GROWTH(B):?normal, B/L.?TEMPERTURE GRADIENT(C):?normal, warm to cool, proximal to distal, B/L, B/L.?PIGMENTATION:?normal, B/L.?EDEMA(C):?absent, B/L.?X-Rays - IMAGING REPORT: ?Clinical Indication(s):? Evaluate Biomechanical Deformity.?Views:?3 views of Foot, AP, LAT, MO, B/L??Taken by trained?Podiatric Edm Operator (?SF ).?Findings:?normal bone and soft tissue density consistent for patients age and sex.?HAV:?Increased First Intermetatarsal angle and Hallux Abductus angle consistent with Bunion deformity noted, hypertrophy of the dorsal and medial 1st MTH without subchondral cyst, short 1st MT, previous sx evident at 1st MTPJ and Shu with cerclage noted b/l proximal phalange.?Fracture:?Negative fractures identified.?Dermatologic: ?SKIN FINDINGS:?Skin exam reveals normal color, texture, elasticity, and turgor. There are no masses, nor excrescences. The interspaces are clear, B/L.? Assessment: * Assessment: 1.?Pain in left foot - M79.6 72???2.?Hallux valgus (acquired), right foot - M20.11 (Primary)???3.?Pain in left ankle and joints of left foot - M25.572???4.?Bursitis of left foot - M77.52???5.?Hallux valgus (acquired), left foot - M20.12???6.?Pain in right foot - M79.671???7.?Pain in right ankle and joints of right foot - M25.571???8.?Bursitis of right foot - M77.51???9.?Medial crossover toe, left foot - M20.5X2???10. Medial crossover toe, right foot - M20.5X1???11.?Hammertoe of right foot - M20.41???12.?Hammertoe of left foot - M20.42??? Plan: * Treatment: 2.?Pain in right foot?Imaging: X ray : Foot, right 3V (Performed Date - 03/31/2024)?See Examination above * Procedure Codes:?11738 X-RAY EXAM OF LEFT FOOT 3V, Modifiers: 26 , [id number] X-RAY EXAM OF RIGHT FOOT 3V, Modifiers: 26 , RT * Preventive Medicine:? ??Counseling:?Discussion:?-04: Office or other outpatient visit for the evaluation and management of a new patient, which required a medically appropriate history and/or examination and MODERATE level of DECISION MAKING for: 1 OR MORE CHRONIC PROBLEM(S) THATS WORSENING, 2 STABLE CHRONIC PROBLEMS, A NEWLY DIAGNOSED PROBLEM WITH UNCERTAIN PROGNOSIS, AN ACUTE COMPLICATED INJURY WITH MULTIPLE TREATMENT OPTIONS, OR AN ACUTE PROBLEM WITH ACCOMPANYING SYSTEMIC SYMPTOMS, THAT POSE(S) A MODERATE RISK OF MORBIDITY. THIS CONDITION MAY ALSO INCLUDE RX DRUG MANAGEMENT, OR A DECISON FOR MINOR SURGERY. The visit on the day of the encounter encompassed interpreting the data and educating the patient as to the nature of their condition, treatment options available according to their individual PMH, meds, allergies, and overall health/living conditions, as well as any potential risks or complications that may occur from a failure to adhere to, and participate in, the recommended course of therapy. The discussion included a complete verbal, and/or written explanation of the examination results, any x-rays taken, the proposed diagnosis, and outline of the treatment plan. A schedule for future care needs was also explained. The patient verbalized an understanding of the instructions at this time and agreed to be an active participant in their treatment. If the patient should think of any questions or concerns after the visit, I have encouraged the patient to call the office.?BioMech.:?I discussed the Pts foot biomechanics with them and how it relates to their problem, Discussed and reviewed the X-rays with the patient. We discussed how the findings relate to the patients symptoms/complaints. Answered any and all questions..?Digital Treatment:?HV - I explained to the patient the risks/benefits of all the different treatment options for their pain including: No treatment at all, Rest, Ice, New/supportive/wider/deeper Shoegear, Digital Padding/Strapping/Taping/Bracing/Gel protective sleeves, Foot/Ankle AFO Bracing, Stretching exercises, Deep Tissue Massage, Arch support/shoe inserts with splay metatarsal padding, and Custom orthoses. I insisted that any digital devices be removed daily and not worn overnight for safety. The patient is to carefully examine the toes daily for any skin irritation while using any splinting or padding device. The advantages and disadvantages of each option were discussed and the patients questions re: shoegear, padding, custom vs prefabricated inserts, activity level, and consistency in home treatment regimens for optimal success were answered to their verbally confirmed satisfaction.?Discussion for Bunion sx:?Several different types of Bunion surgeries were discussed with the patient, including, but not limited to: Modified Gilmore bone removal and soft tissue release/realignment, Tyler osteotomy with soft tissue release/realignment and internal fixation, Shaft v Base wedge osteotomies with internal fixation, and Lapidus joint fusion procedures with internal fixation. We discussed the risks of having surgery (described below) vs not having surgery (persistent pain, deformity, risk for skin ulceration/infection, loss of toe) as well as the potential surgical complications including, but not limited to: pain, swelling, bleeding, scarring, numbness, infection, delayed/non healing, floppy/unstable/shorthened toe, recurrence, failure of the procedure, overcorrection leading to plantarflexed/downward/upward positioned toe, recurrence, need for further surgery, as well as the possibility for loss of the toe itself. We discussed the use of IV/Local regional anesthesia, and the usual post-op course for healing. No guarentees were given. The patient verbally indicated a full understanding of the above conversation, and any other of their questions were answered to their satisfaction, Discussed and reviewed the X-rays with the patient. We discussed how the findings relate to the patients symptoms/complaints. Answered any and all questions., Recomm, rest, ice, proper shoegear, padding, orthotics, anti-inflammatories or tylenol as tolerated, topical analgesics, cortisone injections. I do not recomm. pt moving forward with surgery however pt would like a 2nd opinion so she will be scheduled with ? * Follow Up:?prn * Images: * Sign off status: Completed true * Provider:?Erica Iglesias DPM Date:?2023 Generated for Krysten kowalski/Bianca/Itzelitting on:?04/09/2024 11:51 PM EST History and Physical Notes * HPI (History of Present Illness) Category Sub-Category Detail Notes Category Not es Foot Pain Location: Inside, Great toe joint, B/L Duration: , several years Course: worse Aggravated: any pressure Treatments: rest/alter normal da adelaide activity, previous sx 20 years ago b/l Examination Category Sub-Category Detail Notes Category Not es Neurological SENSORY: Neurological exa m reveals intact sensorium, pain sensation normal, vibration sensation intact, pinprick sensation is normal in the lower extremities, Pt denies, anesthesia, burning, paresthesia, tingling, B/L TINEL'S COMPRESSION: Negative, Saphenous nerve distribution, B/L Dermatologic SKIN FINDINGS: Skin exam reveal s normal color, texture, elasticity, and turgor. There are no masses, nor excrescences. The interspaces are clear, B/L Orthopedic GAIT ABNORMALITY: Pronated, abducted angl e and base of gate, B/L FOOT MORPHOLOGY: Pes Planus structure , Semi-rigid, B/L BUNION: Medially prominent 1 st MPJ, (+) Pain on palpation, inflammation present medially, Lateral tracking 1st MPJ incompletely reducible, R< L , Limited 1st MPJ Dorsal ROM,Limited 1st MPJ Plantar ROM b/l DIGITAL DEFORMITIES: Digital contracture , PIPJ, 2-5 B/L, incompl-reducible with WB, or to push-up test overlapping 2nd digits b/l, medial drift to digits 2-5 b/l R>L MUSCLE STRENGTH: 5/5 all groups in a symmetrical fashion, B/L General Examination GENERAL APPEARANCE: Reveals a pleasant, alert, well nourished, well-developed, well hydrated individual, who demonstrates proper attention to hygiene/body habitus, and is in no acute distress, Pt serves as own historian for office visit today ORIENTED: person, place, and t tatiana Vascular DP PULSES(B): 2/4, B/L PT PULSES(B): 2/4, B/L CAPILLARY FILL TIME: immediate, all digi ts, B/L TEMPERTURE GRADIENT(C): normal, warm to cool, proximal to distal, B/L, B/L TROPHIC CONDITION-TEXTURE/ELASTICITY/TURGOR/HAIR GROWTH(B): normal, B/L EDEMA(C): absent, B/L PIGMENTATION: normal, B/L X-Rays - IMAGING REPORT Findings: normal b one and soft tissue density consistent for patients age and sex Fracture: Negative fractures i dentified HAV: Increased First Inte rmetatarsal angle and Hallux Abductus angle consistent with Bunion deformity noted, hypertrophy of the dorsal and medial 1st MTH without subchondral cyst, short 1st MT, previous sx evident at 1st MTPJ and Shu with cerclage noted b/l proximal phalange Views: 3 views of Foot, AP, LAT, MO, B/L Taken by trained Podiatric Edm Operator ( SF ) Clinical Indication(s): Evaluate Biomech anical Deformity
== END 2024-04-09 11:47 | disposition home or self-care (01) ==
PROVIDERS: PCP Internal Medicine; Visit Provider Internal Medicine
DX: Z00.01 Encounter for general adult medical examination with abnormal findings (principal); D72.810 Lymphocytopenia; Z86.39 Personal history of other endocrine, nutritional and metabolic disease; M81.0 Age-related osteoporosis without current pathological fracture; Z12.11 Encounter for screening for malignant neoplasm of colon; M21.611 Bunion of right foot; M21.612 Bunion of left foot; F41.9 Anxiety disorder, unspecified; F32.A Depression, unspecified; Z71.89 Other specified counseling; H61.23 Impacted cerumen, bilateral

== ENCOUNTER → 2024-04-09 09:41 | Outpatient (BNVA) | payer OTHER, SELFPAY | PROVIDERS: PCP Internal Medicine; Visit Provider Internal Medicine | DX: Z00.01 Encounter for general adult medical examination with abnormal findings (principal); D72.810 Lymphocytopenia; M81.0 Age-related osteoporosis without current pathological fracture; M21.611 Bunion of right foot; M21.612 Bunion of left foot; F41.9 Anxiety disorder, unspecified; F32.A Depression, unspecified; H61.23 Impacted cerumen, bilateral; Z71.89 Other specified counseling; Z86.39 Personal history of other endocrine, nutritional and metabolic disease | CPT/HCPCS: 96127; 99397 ==

== ENCOUNTER 2024-04-12 08:24 | Outpatient (REF) | payer OTHER, SELFPAY ==
--- OUTSIDE RECORDS SUMMARY | 2024-04-12 08:27 | XMS_ITS ---
[facility] Organization [facility] Address [address] [place] [address] Care Team Providers Care Nutritional Health Coach Name Role Phone Mariaa CLIFTON, Donna Kevin Primary Care Provider Un available Perica, Becky Unavailable [phone] Black, Erica Unavailable [phone] Allergies Allergen (clinical drug ingredient) Drug/Non Drug [...] Status Risk Notes Problem Acquired hallux valgus (77777670) Hallux valgus (acquired), left foot (M20.12) Active confirmed Problem Acquired hallux valgus (19308733) Hallux valgus (acquired), right foot (M20.11) Active confirmed Problem [id number] Hammertoe of right foot (M20.41) Active confirmed Problem [id number] Hammertoe of left foot (M20.42) Active confirmed Vital Signs Blood pressure systolic 120 mm Hg 03/31/20 24 Blood pressure diastolic 70 mm Hg 024 Height 5 ft 4 in in 03/31/2024 Weight 127 lbs 03/31/2024 BMI 21.8 kg/m2 03/31/2024 Encounters Encounter Location Date Provider Diagnosis [facility] [address] [address] 03/31/2024 Erica Black Pain in left foot [...] Provider Name:Becky madden, 06/11/2024 03:00:00 PM, [address] [place], [address], Progress Notes * Kori BARRON LDOB:1955 (68 yo F)Acc No.[id number]:03/31/2024 Progress Notes Patient:?Kori BARRON Provider:?Erica Iglesias DPM :1955???Age:68 Y???Sex:Female D ate:03/31/2024 Address:[address] [place], [place] [id number] Pcp:Amena Ramos Subjective: * Chief Complaints: * [...] Foot, AP, LAT, MO, B/L??Taken by trained?Podiatric Hydraulic Barker Operator (?SF ).?Findings:?normal bone and soft tissue [...] Date - 03/31/2024)?See Examination above * Procedure Codes:?21630 X-RAY EXAM OF LEFT FOOT 3V, Modifiers: 26 , GP59942 X-RAY EXAM OF RIGHT FOOT 3V, Modifiers: [...] Iglesias DPM Date:?2023 Generated for Krysten kowalski/Bianca/Itzelitting on:?04/12/2024 08:27 AM EST History and Physical Notes * HPI [...] LAT, MO, B/L Taken by trained Podiatric Hydraulic Barker Operator ( SF ) Clinical Indication(s): Evaluate Biomech anical Deformity
--- OUTSIDE RECORDS SUMMARY | 2024-04-12 08:27 | XMS_ITS ---
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 Generated for Printi ng/Faxing/eTransmitting on:?04/12/2024 08:27 AM EST
--- OUTSIDE RECORDS SUMMARY | 2024-04-12 08:28 | XMS_ITS | Patient Health Record ---
[facility] Address [address] [place] [address] Care Team Providers Care Medical Technologist Blood Bank Name Role Phone Mariaa CLIFTON, Donna Kevin Primary Care Provider Un available Becky Johnson Unavailable [phone] Erica Iglesias Unavailable [phone] Allergies Allergen (clinical drug ingredient) Drug/Non Drug [...] Provider Speciality Internal M edicine [facility]erred Provider Erica Iglesias [facility] Address [address] [facility] ,[place], [place],[address], Referred Provider Specialty Podiatry Referral Priority Routine [...] Provider Speciality Internal M edicine [facility] Referred Provider Becky Johnson Referred Address [address] [place],[address], Referred Provider Specialty Podiatry Referral Priority Routine [...] Status Risk Notes Problem Acquired hallux valgus (51856217) Hallux valgus (acquired), left foot (M20.12) Active confirmed Problem Acquired hallux valgus (80503806) Hallux valgus (acquired), right foot (M20.11) Active confirmed Problem [id number] Hammertoe of left foot (M20.42) Active confirmed Problem 282982818 Hammertoe of right foot (M20.41) Active confirmed Vital Signs Blood pressure diastolic 70 mm Hg 03/31/2024 Height 5 ft 4 in in 03/31/2024 Blood pressure systolic 120 mm Hg 03/31/2024 Weight 127 lbs 03/31/2024 BMI 21.8 kg/m2 03/31/2024 Encounters Encounter Location Date Provider Diagnosis [facility] [address] [place] [address] 03/31/2024 Erica Black Pain in left foot [...] M20.41 and Hammertoe of left foot M20.42 [facility] [address] [place] [address] 12/20/2023 Erica Iglesias Assessments Encounter Date Diagnosis [...] Provider Name:Becky madden, 06/11/2024 03:00:00 PM, [address] [place], [address], Insurance Providers Payer Name Payer Address Payer Phone Subscriber Number Group Number Insured Name Patient Relationship to Insured Coverage Start Date Coverage End Date [facility] [address] [place] [phone] [id number] Kori Barron Self - patient is the insured Medical (General) History Medical History History ICD Code Anxiety covid-19 Depression Osteoporosis Reflux ( GERD) Measles Chicken pox Mumps Surgical History Surgery Date(Month/Year) appendectomy 1969 tonsillectomy 1960 bunionectomy 1989
[2024-04-12 11:12] LABS: MANUAL DIFF FLAG NO
[2024-04-12 11:15] LABS: Basophils Absolute Auto 0.1 X10*3/uL (0.0-0.2); Basophils Percent Auto 1.4 % (0-2); Eosinophils Absolute Auto 0.1 X10*3/uL (0.0-0.4); Eosinophils Percent Auto 1.4 % (0-4); Hematocrit 40.3 % (37.0-47.0); Hemoglobin 13.6 g/dl (12.0-16.0); Imm Gran Abs Auto 0.01 X10*3/uL (0.00-0.03); Imm Gran Pct Auto 0.2 % (0.0-0.4); Lymphocytes Absolute Auto 1.1 X10*3/uL (1.2-4.9); Lymphocytes Percent Auto 25.1 % (20-40); Mean Corpuscular HGB Conc 33.7 g/dl (31.0-35.0); Mean Corpuscular Hemoglobin 30.6 pg (27.0-33.0); Mean Corpuscular Volume 90.6 fL (80.0-98.0); Monocytes Absolute Auto 0.3 X10*3/uL (0.1-1.2); Monocytes Percent Auto 7.4 % (2-11); Neutrophils Absolute Auto 2.8 x10*3/uL (2.0-8.3); Neutrophils Percent Auto 64.5 % (45-73); Platelet Count 191 X10*3/uL (160-400); Red Blood Count 4.45 X10*6/uL (4.20-5.50); Red Cell Distribution Width 12.1 % (11.0-16.0); White Blood Count 4.3 X10*3/uL (4.8-10.8)
[2024-04-12 12:03] LABS: Alanine Aminotransferase 20 U/L (0-31); Albumin Level 4.5 g/dL (3.5-5.0); Alkaline Phosphatase 52 U/L (39-117); Aspartate Amino Transferase 27 U/L (5-31); Bilirubin Direct 0.2 mg/dL (0.0-0.5); Bilirubin Total 0.5 mg/dL (0.0-1.0); Cholesterol 214 mg/dL (<200); HDL Cholesterol 72 mg/dL (>40); LDL Cholesterol Calculated 130 mg/dL (<100); Triglycerides 63 mg/dL (<150)
[2024-04-12 12:19] LABS: Vitamin D 25-OH Total 57.4 ng/mL (>30)
[2024-04-12 12:22] LABS: Folate 9.9 ng/mL (> or = 4.0); Vitamin B12 582 pg/mL (200-900)
== END 2024-04-12 08:25 | disposition home or self-care (01) ==
LOC: HO.HMGCLDS 08:24
PROVIDERS: PCP Internal Medicine; Visit Provider Internal Medicine
DX: D72.819 Decreased white blood cell count, unspecified (principal); Z13.220 Encounter for screening for lipoid disorders; Z86.39 Personal history of other endocrine, nutritional and metabolic disease; Z78.0 Asymptomatic menopausal state
CPT/HCPCS: 36415; 80061; 80076; 82306; 82607; 82746; 85025

== ENCOUNTER 2024-06-19 13:31 | Outpatient (AMB) | payer OTHER, SELFPAY ==
[2024-06-19 13:34] VITALS: BP 100/64; PULSE 62; O2SAT 97; BMI 20.4
--- NOTE | 2024-06-19 13:34 | MHC.OFFVIS ---
Vital Signs 06/19/24 13:34 Height 5 ft 4 in Weight 119 lb 0.794 oz BMI 20.4 BP 100/64 Blood Pressure Location Lt brachial Position Sitting Pulse 62 Pulse Source Pulse Oximeter Pulse Oximetry (%) 97 Oxygen Delivery Method Room Air Intake Visit Reasons: Age-related osteoporosis Intake Note: New patient internally referred by PCP to establish care for Osteoporosis. Signal Apprentice Required: No Accompanied by: Self / Same As Patient Allergies No Known Allergies Allergy (Verified 06/19/24 13:59) Medication List - Last Reconciled 06/19/24 by Lamine Rice MD carbamide peroxide 6.5% (Debrox) 5 drps otic (ear) left DAILY 4 days escitalopram oxalate 5 mg PO QAM HPI Comments Details: 68 YO Female is seen in consultation at the request of PCP for Osteoporosis. First diagnosed in 5 -6 yrs ago . Not Received treatment in the past No history of pathologic fracture or ONJ. Has several servings of dietary calcium per day in the form of cheese, zulay, broccoli . Not Takes Calcium supplement . Takes 2000 IU of Vitamin D daily. Took PPI in past , anticoagulant, antiepileptic or glucocorticoid medication. 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 UTD on dental cleanings and sees dentist every 6 months. Has planned upcoming dental work in 2 wks dental plate or extractions. Smoked in paste and ETOH use in past DXA dated 02/14/24:INDINGS: LEFT FEMUR, NECK: BMD 0.561 g/cm2, Z-score -1.6, T-score -3.4, osteoporosis. LEFT FEMUR, TOTAL: BMD 0.540 g/cm2, Z-score -2.1, T-score -3.7, osteoporosis. AP SPINE L1-L4: BMD 0.743 g/cm2, Z-score -1.7, T-score -3.6, osteoporosis. IDENTIFIED RISK FACTORS: Menopause, osteoporosis, parental hip fracture. HISTORY OF FRACTURE: None listed. MEDICATIONS: Vitamin D. MM/XR DEXA axial skeleton IMPRESSION: 1. DIAGNOSIS: Osteoporosis based on the lowest T-score value of -3.7 in the total femur applying World Health Organization criteria. Labs: [facility] Medical History Leukopenia Bilateral hearing loss Osteoporosis Bilateral bunions Anxiety and depression Surgical History History of bunionectomy of both great toes History of tonsillectomy History of tubal ligation History of appendectomy Family History Mother Acute myocardial infarction Alcoholism Father Atrial fibrillation TIA (transient ischemic attack) Alcoholism Brother Alcoholism Acute myocardial infarction Sister Alcoholism Social History Housing: Condominium Alcohol intake: former Year quit: Used Comment: Used to drink cocktails, quit 35 years Patient Tobacco Use Status: Former Tobacco user Years Smoked: 8 years , quit 35 years ago e-Cigarette/Vaping Use: Never Used Substance Use Type: Marijuana Cognitive needs: No Hearing needs: No Vision needs: Yes Assessment & Plan Assessment & Plan (1) Osteoporosis: Code(s): M81.0 - Age-related osteoporosis without current pathological fracture Category: Medical Qualifiers: Osteoporosis type: age-related Presence of current pathological fracture: without current pathological fracture Qualified Code(s): M81.0 - Age-related osteoporosis without current pathological fracture Plan: This is a 68-year-old white female with a history of osteoporosis with partial secondary workup. will complete secondary workup by checking 24 hour urine for calcium and creatinine, phosphorus level, SPEP, urine immunofixation. We will ensure 1200 mg of calcium and Current vitamin D3 intake. Assuming secondary workup is negative would strongly consider use of anabolic agent should she is Tymlos, Forteo or Evenity considering bone density is very low and patient is a very high risk for fracture Orders: Orders Immunofixation, Random Urine Today M81.0 - Age-related osteoporosis without current pathological fracture Calcium, 24 Hr Ur Today M81.0 - Age-related osteoporosis without current pathological fracture Creatinine, 24 Hr Group Today M81.0 - Age-related osteoporosis without current pathological fracture Thyroid Stimulating Hormone Today M81.0 - Age-related osteoporosis without current pathological fracture Phosphorus Today M81.0 - Age-related osteoporosis without current pathological fracture Protein Electrophoresis, Serum Today M81.0 - Age-related osteoporosis without current pathological fracture Free T4 (Free Thyroxine) Today M81.0 - Age-related osteoporosis without current pathological fracture Coding Level of Care Code New Pt Level 4 (75173) Diagnoses Age-related osteoporosis without current pathological fracture M81.0 Osteoporosis type: age-related Presence of current pathological fracture: without current pathological fracture
--- OUTSIDE RECORDS SUMMARY | 2024-06-19 14:29 | XMS_ITS ---
Author Organization [facility] Address [address] [place] [address] Care Team Providers Care Bell Staff Name Role Phone Mariaa CLIFTON, Donna Kevin Primary Care Provider Un available Black, Erica Unavailable [phone] Elizabeth, Becky Unavailable [phone] Allergies Allergen (clinical drug ingredient) Drug/Non Drug Allergy documented on EMR Reaction Allergy Type Onset Date Status codeine Codeine Unknown Drug Allergy Active REASON FOR VISIT Foot pain Medications Medication SIG (Take, Route, Frequency, Duration) Notes Start Date End Date Status Custom Orthotics as directed 05/29/2024 Active Escitalopram Oxalate 5 MG 1 tablet Orally Once a day Active Social History Tobacco Use: Social History Observation Description Date Details (start date - stop date) Never Smoker NA - NA Tobacco use other than smoking: Question Answer Notes Are you an other tobacco user? No Tobacco Control (Standard) Question Answer Notes Tobacco use: Nonsmoker Vital Signs Height 5ft4in in 06/11/2024 Weight 127 lbs 06/11/2024 BMI 21.8 kg/m2 06/11/2024 Blood pressure systolic 120 mm Hg 06/11/19 25 Blood pressure diastolic 70 mm Hg 025 Encounters Encounter Location Date Provider Diagnosis [facility] [address] [place] [address] 06/11/2024 Becky Johnson Pain in left foot M79.672 ; Hallux [...] Treatment Notes Treatment Clinical Notes Section Notes 06/11/2024 Pain in left foot (ICD-10 - M79.672) 06/11/2024 Hallux valgus (acquired), right foot (ICD-10 - M20.11) 06/11/2024 Pain in left ankle and joints of left foot (ICD-10 - M25.572) 06/11/2024 Bursitis of left foot (ICD-10 - M77.52) 06/11/2024 Hallux valgus (acquired), left foot (ICD-10 - M20.12) 06/11/2024 Pain in right foot (ICD-10 - M79.671) 06/11/2024 Pain in right ankle and joints of right foot (ICD-10 - M25.571) 06/11/2024 Bursitis of right foot (ICD-10 - M77.51) 06/11/2024 Medial crossover toe, left foot (ICD-10 - M20.5X2) 06/11/2024 Medial crossover toe, right foot (ICD-10 - M20.5X1) 06/11/2024 Hammertoe of right foot (ICD-10 - M20.41) 06/11/2024 Hammertoe of left foot (ICD-10 - M20.42) Plan Of Treatment Next Appt Details Follow Up: prn, Reason: Progress Notes * Kori BARRON LDOB:1955 (68 yo F)Acc No.[id number]:06/11/2024 Progress Note Patient:?Kori BARRON Provider:?Becky Johnson DPM :1955???Age:68 Y???Sex:Female D ate:06/11/2024 Address:[address] [place] [address] [address], [id number] Pcp:Amena Ramos Subjective: * Chief Complaints: * ???Foot pain * HPI: ???Foot Pain:?Location:?Inside, Great toe joint,Right > Left, and toes 2-4 RIGHT.?Duration:?, several years.?Onset:?gradualgenetic, shoes, .?Course:?worse.?Aggravated:?any pressurestanding, walking, shoes, .?Treatments:?rest/alter normal daily activity, previous sx 20 years ago b/l bunionectomies, change in shoes.? * ROS:?General/Constitutional:?Nausea?denies.?Vomiting?denies.?Hunger Thirst?denies.?Loss appetite?admits.?Chills?denies.?Fatigue?denies.?Fever?denies.?Night Sweats?denies.?Unexplained weight loss?denies.?Unexplained [...] Medical History:? * Surgical History:?appendecto my 1970tonsillectomy 1960bunionectomy 1989 * Hospitalization/Major Diagno stic Procedure:?Denies Past Hospitalization * Family History:?Mother: dece ased, diagnosed with Unspecified heart disease.?Father: , diagnosed with Unspecified heart disease.?Siblings: cancer.? * Social History:?Tobacco Use:?Tobacco use other than smoking?Are you an other tobacco user??No ?Tobacco Control (Standard)?Tobacco use:?Nonsmoker ???Miscellaneous:?Caffeine: no. ?Children: yes, 2. ?Exercise: yes, playing [employer], bones and balance classes, bike riding, reading. ?Marital status: . 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 * Medications:?TakingEscitalop lynne Oxalate 5 MG Tablet 1 tablet Orally Once a day Custom Orthotics as directed Medication List reviewed and reconciled with the patientTaking Escitalopram Oxalate 5 MG Tablet 1 tablet Orally Once a day Taking Custom Orthotics as directed Medication List reviewed and reconciled with the patient * Allergies:?Codeineyes[Allerg ies Verified] Objective: * Vitals:?Ht: 5ft4in, Wt:127, BMI:21.8, Shoe size: 9-9.5, BP:120/70mm Hg, Ht-cm: 162.56 cm, Wt-k.61 kg. * Examination: ???General [...] MPJ Dorsal ROM,Limited 1st MPJ Plantar ROM b/lPain assoc with 1st MPJ ROM, throughout ROM testing, RIGHT, .?DIGITAL DEFORMITIES:?Digital contracture, PIPJ, 2-5 B/L, incompl-reducible with WB, or to push-up test overlapping 2nd digits b/l, medial drift to digits 2-5 b/l R>L MPJ Contracture/Dorsal subluxation, 2-4 RIght with evidence of shoe producing skin irritation, .?FOOTWEAR:?shoe gear properties exacerbate patients foot/toe deformity.?Neurological: ?SENSORY:?Neurological exam reveals intact sensorium, pain sensation normal, vibration sensation intact, pinprick sensation is normal in the lower extremities, Pt denies, anesthesia, burning, paresthesia, tingling, B/L.?TINEL'S COMPRESSION:? Negative, Saphenous nerve distribution, B/L.?Vascular: ?DP PULSES (B):?2/4, B/L.?PT PULSES (B):?2/4, B/L.?CAPILLARY FILL TIME:?immediate, all digits, B/L.?TROPHIC CONDITION-TEXTURE/ELASTICITY/TURGOR/HAIR GROWTH (B):?normal, B/L.?TEMPERTURE GRADIENT (C):?normal, warm to cool, proximal to distal, B/L, B/L.?PIGMENTATION:?normal, B/L.?EDEMA (C):?absent, B/L.?X-Rays - IMAGING REPORT: ?Clinical Indication(s):? Evaluate Biomechanical Deformity.?Views:?3 views of Foot, AP, LAT, MO, B/LTaken by trainedPodiatric Straight Cutter Machine (SF )Are reviewed with the Pt, .?Findings:?normal bone and soft tissue density consistent for patients age and sex.?Foot structure:?reveals excess pronation withanterior break in cyme line, increased talar declination, decreased calcaneal inclination, .?Digits:?show asymmetrical joint space narrowing at the PIPJ consistent with clinical finding of hammertoe deformityshow enlarged/hypertrophied phalangeal head(s) consistent for clinical finding of hammertoe deformity 2-5 B/L , show medial? dislocation of MTPJ, 2, 3, 4 Right.?HAV:?Increased First Intermetatarsal angle and Hallux Abductus angle consistent with Bunion deformity noted, hypertrophy of the dorsal and medial 1st MTH without subchondral cyst, short 1st MT, previous sx evident at 1st MTPJ and hSu with cerclage wiring noted b/l proximal phalangethere is asymmetrical narrowing of the 1st MPJ joint space, there is dystrophy? of the 1st MTH, B/L .?Fracture:?Negative fractures identified.?Dermatologic: ?SKIN FINDINGS:?Skin exam reveals normal [...] left foot - M20.42??? Plan: * Treatment: * Procedure Codes:? * Preventive Medicine:? ??Counseling:?Discussion:?-14: Office or other outpatient visit for the evaluation and management of an established patient, which required a medically appropriate history [...] and Lapidus joint fusion procedures with internal fixation as well as fusion of 1st MPJ and hammer toe correction surgery . We discussed the risks of having surgery [...] tylenol as tolerated, topical analgesics, cortisone injections. Discussed pt in detail her foot biomechanics and the risks and benenfits of surgery. I advised pt that her surgery would have a lengthy recovery due to previous surgery and severeity of deformity. Pt states she has some pain at times, but it is not constant and is shoe dependent. I also do not recomm. pt moving forward with surgery however, if pt does want to proceed with surgery would refer pt to Dr Wright at [facility] for surgery consult and planning, the significant deformity of pt's right foot would best be perfomed at the hospital and with Dr Wright.?Orthotics:?Pt awaiting custom orthotics, decrease pain associated with the plantar lesion, decrease pain under the painful metatarsal by supplementing the soft tissue, cushion the forefoot by supplementing the soft tissue, decrease stretch/strain on the arch and tibial tendon, decrease pronation, the delay of the formation of bunion, the delay of the formation of hammertoes.?X-rays:?Discussed and reviewed the X-rays with the patient. We discussed how the findings relate to the patients symptoms/complaints. Answered any and all questions..? * Follow Up:?prn * Images: * Sign off status: Completed true * Provider:?Becky Johnson DPM Date:?03/2025 Generated for Krysten kowalski/Bianca/Itzelitting on:?06/19/2024 02:29 PM EST History and Physical Notes * HPI (History of Present Illness) Category Sub-Category Detail Notes Category Not es Foot Pain Location: Inside, Great to e joint,Right > Left, and toes 2-4 RIGHT Duration: , several years Onset: gradualgenetic, shoe s, Course: worse Aggravated: any pressurestanding , walking, shoes, Treatments: rest/alter normal da adelaide activity, previous sx 20 years ago b/l bunionectomies, change in shoes Examination Category Sub-Category Detail Notes Category Not [...] MPJ Dorsal ROM,Limited 1st MPJ Plantar ROM b/lPain assoc with 1st MPJ ROM, throughout ROM testing, RIGHT, FOOTWEAR: shoe gear properties exacerbate patients foot/toe deformity DIGITAL DEFORMITIES: Digital contracture , PIPJ, 2-5 B/L, incompl-reducible with WB, or to push-up test overlapping 2nd digits b/l, medial drift to digits 2-5 b/l R>L MPJ Contracture/Dorsal subluxation, 2-4 RIght with evidence of shoe producing skin irritation, MUSCLE STRENGTH: 5/5 all groups in a symmetrical fashion, B/L General Examination GENERAL APPEARANCE: Reveals a pleasant, alert, well nourished, well-developed, well hydrated individual, who demonstrates proper attention to hygiene/body habitus, and is in no acute distress, Pt serves as own historian for office visit today ORIENTED: person, place, and t tatiana Vascular DP PULSES (B): 2/4, B/L PT PULSES (B): 2/4, B/L CAPILLARY FILL TIME: immediate, all digi ts, B/L TEMPERTURE GRADIENT (C): normal, warm to cool, proximal to distal, B/L, B/L TROPHIC CONDITION-TEXTURE/ELASTICITY/TURGOR/HAIR GROWTH (B): normal, B/L EDEMA (C): absent, B/L PIGMENTATION: normal, B/L X-Rays - IMAGING REPORT Findings: normal b one and soft tissue density consistent for patients age and sex Fracture: Negative fractures i dentified Digits: show asymmetrical elena int space narrowing at the PIPJ consistent with clinical finding of hammertoe deformityshow enlarged/hypertrophied phalangeal head(s) consistent for clinical finding of hammertoe deformity 2-5 B/L , show medial dislocation of MTPJ, 2, 3, 4 Right Foot structure: reveals excess prona tion withanterior break in cyme line, increased talar declination, decreased calcaneal inclination, HAV: Increased First Inte rmetatarsal angle and Hallux Abductus angle consistent with Bunion deformity noted, hypertrophy of the dorsal and medial 1st MTH without subchondral cyst, short 1st MT, previous sx evident at 1st MTPJ and Shu with cerclage wiring noted b/l proximal phalangethere is asymmetrical narrowing of the 1st MPJ joint space, there is dystrophy of the 1st MTH, B/L Views: 3 views of Foot, AP, LAT, MO, B/L Taken by trained Podiatric Straight Cutter Machine ( SF )Are reviewed with the Pt, Clinical Indication(s): Evaluate Biomech anical Deformity
--- OUTSIDE RECORDS SUMMARY | 2024-06-19 14:29 | XMS_ITS | Clinical Summary ---
Author Organization [employer] Address [address] [facility] [address] [place] [address] Care Team Providers Care Bilingual Teacher Assistant Name Role Phone Seth Louie MD Primary Care Prov ider Allergies No known active allergies Medications * This document contains information received from the source organization and may not represent a complete record from that organization. escitalopram (Lexapro) 10 MG tablet TAKE 1 TABLET BY MOUTH EVERY DAY IN THE MORNING 90 tablet 04/28/2024 Active Active Problems Problem Noted Date Diagnosed Date Unresolved grief 08/20/2023 Moderate anxiety 08/20/2023 Physical exam 07/19/2023 Assessment & Plan (07/19/2023 1:38 PM EDT): Patient with hx of MDD, no active suicidal/homicidal ideas, will continue escitalopram as she was taking it, she has no other major condition or concern, patient is [id number]. She refers had colonoscopy/pap/mammogram done will request results Blood work will be ordered Memory loss 07/19/2023 Assessment & Plan (07/19/2023 1:39 PM EDT): Could be related to her MDD, will refer to neurology for evaluation Recurrent major depressive disorder, in partial remission 07/11/2023 Assessment & Plan (08/20/2023 10:54 AM EDT): PROGRESS NOTE: ID: Kori is a 67 y.o. White straight-identified cis-female (pronouns ) with previous documented hx of Depression who presents for Depression. Recently moved with son, struggling with grief. During IBH Consult Kori presenting with depressed mood, loss of interests/pleasure , changes in sleep difficulty staying asleep , change in appetite or weight reduce appetite, trouble concentrating, fatigue/loss of energy, worthlessness , excessive worry/anxiety, difficulty controlling worry, restless/keyed up/On edge, easily fatigued, difficulty concentrating/Mind going blank , irritability, muscle tension, and sleep disturbance difficulty staying asleep , Flashbacks, Intrusive trauma memories and thoughts, Nightmares/night terrors, Hypervigilance, and Avoidance of trauma reminders/triggers, and numbness, sadness, denial, anger, emotional pain and intense yearning. ; for a period of 18+ mo, for all symptoms in the context of losing 4 family member in the past 4 years, adjusting to living with her son. . PLAN: New/Additional Services needed Off-site services for Behavioral Health Integration Plan External OP therapy referral Patient Self Plan Patient to utilize skills provided in intervention , Patient to reach out to [facility] team as needed, and Patient to engage in OP therapy Assessment & Plan (07/11/2023 11:09 PM EDT): Patient on escitalopram 10mg, no suicidal/homicidal ideas, will refer to therapist Encounters Date Type Department Care Team Description 04/28/2024 Refill [facility] [address] [place] [address] Seth Louie MD 04/24/2024 Refill [facility] [address] [place] [address] Letty Scott MD from Last 3 Months Family History Medical History Relation Name Comments Kidney cancer Brother Heart disease Father Colon cancer Maternal Grandmother Heart disease Mother Hypertension Mother Relation Name Status Comments Brother Father Maternal Grandmother Mother Social History Tobacco Use Types Packs/Day Years Used Date Smoking Tobacco: Never Smokeless Tobacco: Never Tobacco Cessation:Counseling Given: Not Answered Alcohol Use Standard Drinks/Week Comments Never 0 (1 standard drink = 0.6 oz pur e alcohol) Depression Answer Date Recorded Patient Health Questionnaire-9 Score 14 08/20/2023 Patient Health Questionnaire-9 Score 14 08/20/2023 Last PHQ-9: Questionnaire Data Not on file 0 08/20/2023 Depression Answer Date Recorded Patient Health Questionnaire-2 Score 5 08/20/2023 Comments Unknown Sex and Gender Information Value Date Recorded Sex Assigned at Female 06/14/2023 10:44 AM EST Legal Sex Female 10:22 AM EST Gender Identity Female 06/14/2023 10:44 AM EST Sexual Orientation Straight 06/21/2023 2: 58 PM EST Last Filed Vital Signs Vital Sign Reading Time Taken Comments Blood Pressure 116/67 07/11/2023 2:25 PM EDT Pulse 60 07/11/2023 2:25 PM EDT Temperature 37.1 ??C (98.7 ??F) 07/11/2023 2:25 PM ED T Respiratory Rate 16 07/11/2023 2:25 PM EDT Oxygen Saturation - - Inhaled Oxygen Concentration - - Weight 56.7 kg (125 lb) 07/11/2023 2:25 PM EDT Height 162.6 cm (5' 4 ) 07/11/2023 2:25 PM EDT Body Mass Index 21.46 07/11/2023 2:25 PM EDT Plan of Treatment Health Maintenance Due Date Last Done Comments CT Colonography 1954 Colonoscopy 1954 Colorectal Cancer Screening 1954 FIT DNA/Cologuard 1954 FIT 1954 FOBT 1954 SDOH Screening 1954 Sigmoidoscopy 1954 Alcohol/Substance Use Screening 1966 Hepatitis C Screening 1972 DTaP/Tdap/Td Vaccines (1 - Tdap) 1973 Pneumococcal Vaccine: 50+ Years (1 of 1 - PCV) 2004 Zoster Vaccines (1 of 2) 2004 Mammogram 02/10/2023 02/10/2021, 04/0 04/2020, 12/03/2019, Additional history exists COVID-19 Vaccine ( - 2023- season) 2023 Influenza Vaccine (#1) 2023 Depression Monitoring (PHQ-9) 02/19/2024 08/20/2023, 08/20/2023 Tobacco Screening 07/18/2024 07/19/2023 Depression Screening 08/19/2024 08/20/2023, 08/20/19 24 RSV Patients and Patients Aged 60 years or older (1 - 1-dose 75+ series) 2029 HIB Vaccines Aged Out No longer eligi ble based on patient's age to complete this topic HPV Vaccines Aged Out No longer eligi ble based on patient's age to complete this topic Hepatitis A Vaccines Aged Out No long er eligible based on patient's age to complete this topic Hepatitis B Vaccines Aged Out No long er eligible based on patient's age to complete this topic IPV Vaccines Aged Out No longer eligi ble based on patient's age to complete this topic Meningococcal Vaccine Aged Out No ronan kady eligible based on patient's age to complete this topic RSV under 20 months Aged Out No longe r eligible based on patient's age to complete this topic Rotavirus Vaccines Aged Out No longer eligible based on patient's age to complete this topic Insurance [facility] FULL AETNA GLOBAL Care Teams Bilingual Teacher Assistant Relationship Specialty Start Date End Date Seth Louie MD [address] [place] [id number] PCP - General Internal Medicine 07/19/23
--- OUTSIDE RECORDS SUMMARY | 2024-06-19 14:29 | XMS_ITS | Data Portability ---
Author Organization [place] [facility] - IP Address [address] [place] [address] Care Team Providers Care Director Of Education And Training Name Role Phone LAURA SCHNEIDER Primary Care Provider Assessment No assessment recorded. Plan of Treatment Reminders Order Date Submit Date Provider Last Modified By Organization Details Last Modified Time Details Appointments None recorded. Lab None recorded. Referral None recorded. Procedures None recorded. Surgeries None recorded. Imaging None recorded. Medication Orders omeprazole 20 mg capsule,del ayed release 2021 022 [facility][id number], [address] [facility] [place], [address], 03:32:39 Patient TargetsNo targets recorded. Patient Instructions Encounter Date Encounter Id Patient Instructions Last Modified By Organization Details Last Modified Time 05/31/2021 [id number] pancreatitis: care instructions Not available 06/01/2021 12:41:53 06/22/2021 [id number] nausea and vomiting: care instructions Not available 03/28/2022 13:06:24 08/31/2021 [id number] hemorrhoids: car e instructions Not available 09/01/2021 13:46:14 10/25/2021 [id number] learning about swallowing problems Not available 10/27/2021 14:50:48 Reason for Referral None Reported. Results Created Date Observation Date Name Description Value Unit Range Abnormal Flag Note LastModifiedBy Organization Detail LastModifiedTime 05/10/1905/01/2021 CT, abdom en + pelvi s, w/ contr ast No observ ation record ed. Not Available 2021 12:35:53 06/17/19 22 06/16/2021 MRI, abdom en, w/wo contr ast No observ ation record ed. [address] [facility] ([facility]) [address] [place] [address] [address], [place], [address], 06/22/2021 19:15:25 06/21/19 22 06/16/2021 MRI, abdom en, w/wo contr ast No observ ation record ed. [address] (Xrays Only) [address] [place], [address], 06/22/2021 19:15:43 08/13/19 22 08/11/2021 US, abdom en, limit ed No observ ation record ed. [email or web address] [facility] [address], [place], [address], 08/22/2021 15:04:46 08/24/19 22 08/17/2021 NM, hepat obili george scan, w/ CCK No observ ation record ed. [email or web address], [place], [address], 09/01/2021 08:00:42 Result Notes None recorded. Procedures Surgical History None recorded. Imaging Results Imaging Date Name Status LastModified by Organization Details LastModified Time 05/01/2021 CT, abdomen + pelvis, w/ contrast completed [email or web address] Information not available 05/10/2021 12:35:53 06/16/2021 MRI, abdomen, w/wo contrast completed [address] [facility] ([facility]) [address] [place] [address] [address], [place], [address], 06/22/2021 19:15:25 06/16/2021 MRI, abdomen, w/wo contrast completed [address] (Xrays Only) [address] [place], [address], 06/22/2021 19:15:43 08/11/2021 US, abdomen, limited completed [facility] [address], [place], [address], 08/22/2021 15:04:46 08/17/2021 NM, hepatobiliary scan, w/ CCK completed [email or web address] [facility] [address], [place], [address], 09/01/2021 08:00:42 Procedure Notes None recorded. Medical Equipment None Reported. Medications Name Sig Start Date Stop Date Status Note LastModified by Organization Details LastModified Time vitamin d3 25 mcg (1000 ut) tabs active Not Available Not Available Not Available murine for ear wax removal system 6.5 % soln active Not Available Not Available Not Available amoxicillin 500 mg capsule active Not Available Not Available N ot Available desonide 0.05 % topical cream active Not Available Not Availabl e Not Available ibuprofen 800 mg tablet active Not Available Not Available No t Available alendronate 70 mg tablet active Not Available Not Available No t Available prochlorperazin e maleate 10 mg tablet active Not Available Not Available Not Available omeprazole 40 mg capsule,delayed release TAKE 1 CAPSULE BY MOUTH TWICE A DAY active Not Available Not Available No t Available cephalexin 500 mg capsule active Not Available Not Available N ot Available cyanocobalamin (vit B-12) 1,000 mcg/mL injection solution active Not Available Not Available Not Available omeprazole 20 mg capsule,delayed release TAKE 1 CAPSULE BY MOUTH EVERY DAY 2022 active Not Available Not Available Not Avai lable ondansetron 4 mg disintegrating tablet active Not Available Not Available Not Available Murine Ear Wax Removal System 6.5 % drops INSTILL 5 DROPS INTO THE LEFT EAR DAILY FOR 4 DAYS active Not Available Not Available No t Available escitalopram 10 mg tablet TAKE 1 TABLET BY MOUTH EVERY DAY IN THE MORNING active Not Available Not Available No t Available nitrofurantoin monohydrate/mac rocrystals 100 mg capsule TAKE 1 CAPSULE BY MOUTH EVERY 12 HOURS. active Not Available Not Available No t Available GaviLyte-G 236 gram-22.74 gram-6.74 gram-5.86 gram oral solution TAKE 4000 ML BY ORAL ROUTE. active Not Available Not Available No t Available Vitals None Recorded Social History None recorded. Functional Status None recorded. Mental Status None recorded. Family History Nothing Reported. Medical History No medical history recorded. Gynecological HistoryNo gynecological history recorded. Obstetrics History GPAL:G 0 P 0 0 0 0 Past Encounters Encounter ID Performer Location Encounter Start Date Encounter Closed Date Diagnosis/Indication Diagnosis SNOMED-CT Code Diagnosis ICD10 Code Diagnosis Note [id number] [facility] [address] [facility], [address] [place] [address] 06/01/2021 12:39:33 06/01/2021 12:42:06 Gastroesophageal reflux disease without esophagitis 484267597 K21.9 Acute pancreatitis 15295 6007 K85.90 Epigastric pain 19553485 R10.13 [id number] [facility] [address] [place] [address] 07/15/2021 17:03:50 07/15/2021 17:34:08 Epigastric pain 71074659 R10.13 [id number] [facility] - Office [address] [address] 09/01/2021 13:44:43 09/01/2021 14:23:43 Gastroesophageal reflux disease without esophagitis 121160403 K21.9 Hemorrhoids 47840367 K64 .9 Right uppe r quadrant pain 841002047 R10.11 [id number] [facility] [address], [address] [place] [address] 10/01/2021 14:58:18 10/01/2021 14:59:07 Gastroesophageal reflux disease without esophagitis 798825493 K21.9 Nausea 893114068 R11.0 Abdominal bloating 71639 9008 R14.0 Epigastric pain 02446502 R10.13 [id number] [facility] [address], [address] [place] [address] 10/27/2021 14:50:15 10/27/2021 15:09:38 Gastroesophageal reflux disease without esophagitis 996584822 K21.9 Dysphagia 47613766 R13.1 0 [id number] [facility] - Office [address] [address] 03/28/2022 13:05:51 03/28/2022 13:06:35 Epigastric pain 41192874 R10.13 Nausea 094624132 R11.0 Health Concerns Section Related Observation LastModified by Organization Detai ls LastModified Time None Recorded Concern Status LastModified by Organization Details LastModified Time None Recorded Advance Directives Directive None Recorded Payers Encounter Date Sequence Insurance Name Policy Number Policy Perez Covered Member ID Perez Member ID Guarantor Name 05/31/[address] [facility] Megan Barron [id number] Kori Barron 06/22/[address] [facility] Megan Barron [id number] Kori Barron 07/14/[address] [facility] Megan Barron [id number] Kori Barron 08/31/[address] [facility] Megan Barron [id number] Kori Barron 10/25/[address] [facility] Megan Barron [id number] Kori Barron OBGyn Episode No OBEpisode recorded.
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
--- OUTSIDE RECORDS SUMMARY | 2024-06-19 14:29 | XMS_ITS | Encounter Summary ---
Author Organization [facility] Address [address] [place] [address] Care Team Providers Care Social Studies Department Chair Name Role Phone Kira Vargas MD Primary Care Provider [phone] Encounter Details Date Type Department Care Team (Late st Contact Info) Description 02/10/2021 Transcribe Orders [facility] Department [address] [place] [address] Susanna Schumacher PharmD Social History Tobacco Use Types Packs/Day Years Used Date Smoking Tobacco: Former Smokeless Tobacco: Never Comments:: Alcohol Use Standard Drinks/Week Comments No 0 (1 standard drink = 0.6 oz pur e alcohol) Comments No Sex and Gender Information Value Date Recorded Sex Assigned at Not on file Legal Sex Female 12:52 AM EDT Gender Identity Not on file Sexual Orientation Not on file documented as of this encounter Plan of Treatment Not on file documented as of this encounter Visit Diagnoses Not on filedocumented in this encounter Care Teams Social Studies Department Chair Relationship Specialty Start Date End Date Kira Vargas MD [address] [place] [address] [id number] PCP - General Family Medicine 07/20/17 02/18/24 documented as of this encounter
--- OUTSIDE RECORDS SUMMARY | 2024-06-19 14:29 | XMS_ITS | Data Portability ---
Author Organization [facility] [employer] [facility] Address [address] [place] [address] Care Team Providers Care Reptile Keeper Name Role Phone ISACC BROWN Primary Care Provider [phone] Assessment No assessment recorded. Plan of Treatment Reminders Order Date Submit Date Provider Last Modified By Organization Details Last Modified Time Details Appointments None recorded. Lab culture, urine + sensitivity 2022 023 [employer] [facility], [address] [place], [address], 3 07:48:28 urinalysis, dipstick [email or web address], [address] [place] [address], [address], 3 14:15:44 fecal occult blood, stool 2022 023 [facility], [address] [place] [address], [address], 3 12:45:49 Referral ophthalmolo gist referral - Please call patient to schedule then fax back appointment confirmatio n to Meg Orantes @ or can call my direct line with any questions regarding referral . Thank you!) 2022 023 [facility], [address], [address], [place], [address], 4 08:22:45 Procedures None recorded. Surgeries None recorded. Imaging None recorded. Medication Orders None recorded. Patient TargetsNo targets recorded. Patient Instructions Encounter Date Encounter Id Patient Instructions Last Modified By Organization Details Last Modified Time 02/23/2023 [id number] cpe at f/u labs and tests reviewed [email or web address] Not available 02/23/2023 15:26:05 03/28/2023 [id number] cpe at f/u labs and tests reviewed [email or web address] Not available 03/28/2023 15:15:02 04/24/2023 [id number] Urinary Tract Infection (UTI) in Women: Care Instructions [email or web address] Not available 04/24/2023 14:15:42 04/25/2023 [id number] Pt waiting on culture for abx. Pt has no other concerns. Will follow per protocol. Not available 04/25/2023 15:02:10 04/27/2023 [id number] Pt reports doing well with no symptoms anymore, rash improving. Pt encouraged to call us 1st with any future concerns. Not available 04/27/2023 10:57:41 Reason for Referral [employer] Referral for Visual disturbance Please call patient to schedule then fax back appointment confirmation to Meg Orantes @ [phone] or can call my direct line with any questions regarding referral [phone]. Thank you!) Referring Physician: Devang Madrid, Family Medicine, Encounter Date: 03/28/2023 Results Created Date Observation Date Name Description Value Unit Range Abnormal Flag Note LastModifiedBy Organization Detail LastModifiedTime 01/27/2001/26/2023 urina lysis , dipst ick bilirubin negati ve negati ve normal Not Available [address] [place], [address], 01/26/2023 13:47:11 01/27/20 23 01/26/2023 urina lysis , dipst ick blood trace- intact negati ve abnormal Not Available [address] [place], [address], 01/26/2023 13:47:11 01/27/20 23 01/26/2023 urina lysis , dipst ick clarity clear clear normal Not Available [address], [address], 01/26/2023 13:47:11 01/27/20 23 01/26/2023 urina lysis , dipst ick color yellow yellow normal Not Available [address], [address], 01/26/2023 13:47:11 01/27/20 23 01/26/2023 urina lysis , dipst ick glucose negati ve mg/dL negati ve normal Not Available [address], [address], 01/26/2023 13:47:11 01/27/20 23 01/26/2023 urina lysis , dipst ick ketone negati ve mg/dL negati ve normal Not Available [address], [address], 01/26/2023 13:47:11 01/27/20 23 01/26/2023 urina lysis , dipst ick leukocytes negati ve negati ve normal Not Available [address], [address], 01/26/2023 13:47:11 01/27/20 23 01/26/2023 urina lysis , dipst ick nitrite negati ve negati ve normal Not Available [address], [address], 01/26/2023 13:47:11 01/27/20 23 01/26/2023 urina lysis , dipst ick pH 5.5 4.99-7 .6 normal Not Available [address], [address], 01/26/2023 13:47:11 01/27/20 23 01/26/2023 urina lysis , dipst ick protein negati ve mg/dL negati ve normal Not Available [address], [address], 01/26/2023 13:47:11 01/27/20 23 01/26/2023 urina lysis , dipst ick specific gravity 1.025 1.004- 1.031 normal Not Available [address], [address], 01/26/2023 13:47:11 01/27/20 23 01/26/2023 urina lysis , dipst ick urobilinogen 0.2 0-2.1 normal Not Available [address], [address], 01/26/2023 13:47:11 02/13/2002/13/2023 TSH+F REE T4 TSH 0.833 uIU/m L 0.450- 4.500 Not Available [facility] ([facility]) [address] [place], [address], 02/13/2023 06:11:28 02/13/2002/13/2023 TSH+F REE T4 T4,free(dire ct) 1.23 NG/dL 0.82-1 .77 Not Available [facility] ([facility]) [address] [facility], [place], [address], 02/13/2023 06:11:28 02/13/20 23 02/12/2023 CBC WITH DIFFE RENTI AL/PL ATELE T WBC 4.5 x10e3 /uL 3.4-10 .8 Not Available [facility] ([facility]) [address] [facility], [place], [address], 02/13/2023 06:11:29 02/13/2002/12/2023 CBC WITH DIFFE RENTI AL/PL ATELE T RBC 4.07 x10e6 /uL 3.77-5 .28 Not Available [facility] ([facility]) [address] [facility], [place], [address], 02/13/2023 06:11:29 02/13/2002/12/2023 CBC WITH DIFFE RENTI AL/PL ATELE T hemoglobin 12.5 g/dL 11.1-1 5.9 Not Available [facility] ([facility]) [address] [facility], [place], [address], 02/13/2023 06:11:29 02/13/2002/12/2023 CBC WITH DIFFE RENTI AL/PL ATELE T hematocrit 37.5 % 34.0-4 6.6 Not Available [facility] ([facility]) [address] [facility], [place], [address], 02/13/2023 06:11:29 02/13/2002/12/2023 CBC WITH DIFFE RENTI AL/PL ATELE T MCV 92 fL 79-97 Not Available [facility] ([facility]) [address] [place], [address], 02/13/2023 06:11:29 02/13/2002/12/2023 CBC WITH DIFFE RENTI AL/PL ATELE T MCH 30.7 pg 26.6-3 3.0 Not Available [facility] ([facility]) [address] [place], [address], 02/13/2023 06:11:29 02/13/20 23 02/12/2023 CBC WITH DIFFE RENTI AL/PL ATELE T MCHC 33.3 g/dL 31.5-3 5.7 Not Available [facility] ([facility]) [address] [facility], [place], [address], 02/13/2023 06:11:29 02/13/2002/12/2023 CBC WITH DIFFE RENTI AL/PL ATELE T RDW 12.5 % 11.7-1 5.4 Not Available [facility] ([facility]) [address] [facility], [place], [address], 02/13/2023 06:11:29 02/13/2002/12/2023 CBC WITH DIFFE RENTI AL/PL ATELE T platelets 144 x10e3 /uL 150-45 0 below low normal Not Available [facility] ([facility]) [address] [facility], [place], [address], 02/13/2023 06:11:29 02/13/2002/12/2023 CBC WITH DIFFE RENTI AL/PL ATELE T neutrophils 62 % not estab. Not Available [facility] ([facility]) [address] [facility], [place], [address], 02/13/2023 06:11:29 02/13/2002/12/2023 CBC WITH DIFFE RENTI AL/PL ATELE T lymphs 29 % not estab. Not Available [facility] ([facility]) [address] [facility], [place], [address], 02/13/2023 06:11:29 02/13/2002/12/2023 CBC WITH DIFFE RENTI AL/PL ATELE T monocytes 7 % not estab. Not Available [facility] ([facility]) [address] [facility], [place], [address], 02/13/2023 06:11:29 02/13/20 23 02/12/2023 CBC WITH DIFFE RENTI AL/PL ATELE T eos 1 % not estab. Not Available [facility] ([facility]) [address] [facility], [place], [address], 02/13/2023 06:11:29 02/13/2002/12/2023 CBC WITH DIFFE RENTI AL/PL ATELE T basos 1 % not estab. Not Available [facility] ([facility]) [address] [facility], [place], [address], 02/13/2023 06:11:29 02/13/2002/12/2023 CBC WITH DIFFE RENTI AL/PL ATELE T immature cells TAX TECHNICIAN Not Available [facility] ([facility]) [address] [place], [address], 02/13/2023 06:11:29 02/13/2002/12/2023 CBC WITH DIFFE RENTI AL/PL ATELE T neutrophils (absolute) 2.8 x10e3 /uL 1.4-7. 0 Not Available [facility] ([facility]) [address] [place], [address], 02/13/2023 06:11:29 02/13/20 23 02/12/2023 CBC WITH DIFFE RENTI AL/PL ATELE T lymphs (absolute) 1.3 x10e3 /uL 0.7-3. 1 Not Available [facility] ([facility]) [address] [place], [address], 02/13/2023 06:11:29 02/13/2002/12/2023 CBC WITH DIFFE RENTI AL/PL ATELE T monocytes(ab solute) 0.3 x10e3 /uL 0.1-0. 9 Not Available [facility] ([facility]) [address] [place], [address], 02/13/2023 06:11:29 02/13/2002/12/2023 CBC WITH DIFFE RENTI AL/PL ATELE T eos (absolute) 0.1 x10e3 /uL 0.0-0. 4 Not Available [facility] ([facility]) [address] [place], [address], 02/13/2023 06:11:29 02/13/20 23 02/12/2023 CBC WITH DIFFE RENTI AL/PL ATELE T baso (absolute) 0.1 x10e3 /uL 0.0-0. 2 Not Available [facility] ([facility]) [address] [facility], [place], [address], 02/13/2023 06:11:29 02/13/2002/12/2023 CBC WITH DIFFE RENTI AL/PL ATELE T immature granulocytes 0 % not estab. Not Available [facility] ([facility]) [address] [facility], [place], [address], 02/13/2023 06:11:29 02/13/2002/12/2023 CBC WITH DIFFE RENTI AL/PL ATELE T immature grans (abs) 0.0 x10e3 /uL 0.0-0. 1 Not Available [facility] ([facility]) [address] [facility], [place], [address], 02/13/2023 06:11:29 02/13/2002/12/2023 CBC WITH DIFFE RENTI AL/PL ATELE T NRBC TAX TECHNICIAN Not Available [facility] ([facility]) [address] [facility], [place], [address], 02/13/2023 06:11:29 02/13/2002/12/2023 CBC WITH DIFFE RENTI AL/PL ATELE T hematology comments: TAX TECHNICIAN Not Available [facility] ([facility]) [address] [facility], [place], [address], 02/13/2023 06:11:29 02/13/2002/13/2023 COMP. METAB OLIC PANEL (14) glucose 88 mg/dL 70-99 Not Available [facility] ([facility]) [address] [facility], [place], [address], 02/13/2023 06:11:30 02/13/20 23 02/13/2023 COMP. METAB OLIC PANEL (14) BUN 22 mg/dL 8-27 Not Available [facility] ([facility]) [address] [facility], [place], [address], 02/13/2023 06:11:30 02/13/20 23 02/13/2023 COMP. METAB OLIC PANEL (14) creatinine 0.64 mg/dL 0.57-1 .00 Not Available [facility] ([facility]) [address] [facility], [place], [address], 02/13/2023 06:11:30 02/13/2002/13/2023 COMP. METAB OLIC PANEL (14) eGFR 96 mL/mi n/1.7 3 >59 Not Available [facility] ([facility]) [address] [facility], [place], [address], 02/13/2023 06:11:30 02/13/20 23 02/13/2023 COMP. METAB OLIC PANEL (14) BUN/creatini ne ratio 34 12-28 above high normal Not Available [facility] ([facility]) [address] [facility], [place], [address], 02/13/2023 06:11:30 02/13/20 23 02/13/2023 COMP. METAB OLIC PANEL (14) sodium 142 mmol/ L 134-14 4 Not Available [facility] ([facility]) [address] [place], [address], 02/13/2023 06:11:30 02/13/20 23 02/13/2023 COMP. METAB OLIC PANEL (14) potassium 3.9 mmol/ L 3.5-5. 2 Not Available [facility] ([facility]) [address] [place], [address], 02/13/2023 06:11:30 02/13/20 23 02/13/2023 COMP. METAB OLIC PANEL (14) chloride 105 mmol/ L 96-106 Not Available [facility] ([facility]) [address] [facility] [place], [address], 02/13/2023 06:11:30 02/13/20 23 02/13/2023 COMP. METAB OLIC PANEL (14) carbon dioxide, total 26 mmol/ L 20-29 Not Available [facility] ([facility]) [address] [facility] [place], [address], 02/13/2023 06:11:30 02/13/20 23 02/13/2023 COMP. METAB OLIC PANEL (14) calcium 9.0 mg/dL 8.7-10 .3 Not Available [facility] ([facility]) [address] [facility] [place], [address], 02/13/2023 06:11:30 02/13/20 23 02/13/2023 COMP. METAB OLIC PANEL (14) protein, total 6.1 g/dL 6.0-8. 5 Not Available [facility] ([facility]) [address] [facility] [place], [address], 02/13/2023 06:11:30 02/13/20 23 02/13/2023 COMP. METAB OLIC PANEL (14) albumin 4.5 g/dL 3.9-4. 9 Not Available [facility] ([facility]) [address] [facility] [place], [address], 02/13/2023 06:11:30 02/13/20 23 02/13/2023 COMP. METAB OLIC PANEL (14) globulin, total 1.6 g/dL 1.5-4. 5 Not Available [facility] ([facility]) [address] [facility] [place], [address], 02/13/2023 06:11:30 02/13/20 23 02/13/2023 COMP. METAB OLIC PANEL (14) A/G ratio 2.8 1.2-2. 2 above high normal Not Available [facility] ([facility]) [address] [place], [address], 02/13/2023 06:11:30 02/13/2002/13/2023 COMP. METAB OLIC PANEL (14) bilirubin, total 0.5 mg/dL 0.0-1. 2 Not Available [facility] ([facility]) [address] [place], [address], 02/13/2023 06:11:30 02/13/20 23 02/13/2023 COMP. METAB OLIC PANEL (14) alkaline phosphatase 42 IU/L 44-121 below low normal Not Available [facility] ([facility]) [address] [facility] [place], [address], 02/13/2023 06:11:30 02/13/20 23 02/13/2023 COMP. METAB OLIC PANEL (14) AST (SGOT) 13 IU/L 0-40 Not Available [facility] ([facility]) [address] [facility] [place], [address], 02/13/2023 06:11:30 02/13/2002/13/2023 COMP. METAB OLIC PANEL (14) ALT (SGPT) 17 IU/L 0-32 Not Available [facility] ([facility]) [address] [facility] [place], [address], 02/13/2023 06:11:30 02/13/2002/13/2023 LIPID PANEL cholesterol, total 176 mg/dL 100-19 9 Not Available [facility] ([facility]) [address] [facility] [place], [address], 02/13/2023 06:11:30 02/13/2002/13/2023 LIPID PANEL triglyceride s 35 mg/dL 0-149 Not Available [facility] ([facility]) [address] [facility] [place], [address], 02/13/2023 06:11:30 02/13/20 23 02/13/2023 LIPID PANEL HDL cholesterol 78 mg/dL >39 Not Available [facility] ([facility]) [address] [facility], [place], [address], 02/13/2023 06:11:30 02/13/20 23 02/13/2023 LIPID PANEL VLDL cholesterol kt 8 mg/dL 5-40 Not Available [facility] ([facility]) [address] [facility], [place], [address], 02/13/2023 06:11:30 02/13/2002/13/2023 LIPID PANEL LDL chol calc ([facility]) 90 mg/dL 0-99 Not Available [facility] ([facility]) [address] [facility], [place], [address], 02/13/2023 06:11:30 02/13/2002/13/2023 LIPID PANEL comment: TAX TECHNICIAN Not Available [facility] ([facility]) [address] [facility], [place], [address], 02/13/2023 06:11:30 04/11/20 23 04/11/2023 fecal occul t blood , stool Occult Blood negati ve Not Available [facility] [address] [place], [address], 02/23/2023 14:41:06 04/24/20 23 04/25/2023 CULTU RE, URINE , ROUTI NE culture, urine, routine SEE NOTE CULTU RE, URINE , ROUTI NE Micro Numbe r: [id number] Test Statu s: Final Speci men Sourc e: Urine Speci men Quali ty: Adequ ate Resul t: No Growt h Not Available [facility] [address] [place], [address], 04/25/2023 20:25:20 04/24/20 23 04/24/2023 urina lysis , dipst ick bilirubin negati ve negati ve normal Not Available [address], [address], 04/24/2023 13:51:29 04/24/20 23 04/24/2023 urina lysis , dipst ick blood trace- intact negati ve abnormal Not Available [address], [address], 04/24/2023 13:51:29 04/24/20 23 04/24/2023 urina lysis , dipst ick clarity clear clear normal Not Available [address], [address], 04/24/2023 13:51:29 04/24/20 23 04/24/2023 urina lysis , dipst ick color yellow yellow normal Not Available [address], [address], 04/24/2023 13:51:29 04/24/20 23 04/24/2023 urina lysis , dipst ick glucose negati ve mg/dL negati ve normal Not Available [address], [address], 04/24/2023 13:51:29 04/24/20 23 04/24/2023 urina lysis , dipst ick ketone negati ve mg/dL negati ve normal Not Available [address], [address], 04/24/2023 13:51:29 04/24/20 23 04/24/2023 urina lysis , dipst ick leukocytes small negati ve abnormal Not Available [address], [address], 04/24/2023 13:51:29 04/24/20 23 04/24/2023 urina lysis , dipst ick nitrite negati ve negati ve normal Not Available [address], [address], 04/24/2023 13:51:29 04/24/20 23 04/24/2023 urina lysis , dipst ick pH 8.5 4.99-7 .6 high Not Available [address], [address], 04/24/2023 13:51:29 04/24/20 23 04/24/2023 urina lysis , dipst ick protein negati ve mg/dL negati ve normal Not Available [address], [address], 04/24/2023 13:51:29 04/24/20 23 04/24/2023 urina lysis , dipst ick specific gravity 1.015 1.004- 1.031 normal Not Available [address], [address], 04/24/2023 13:51:29 04/24/20 23 04/24/2023 urina lysis , dipst ick urobilinogen 0.2 0-2.1 normal Not Available [address], [address], 04/24/2023 13:51:29 02/23/20 23 02/22/2023 DEXA, axial skele ton + verte bral fract ure asses sment No observ ation record ed. [email or web address] [facility] [address] [place], [address], 03/07/2023 11:45:32 02/28/2002/22/2023 MAMMO , scree edwina, bilat eral No observ ation record ed. [facility] [address] [facility], [place], [address], 03/07/2023 11:45:33 Result Notes None recorded. 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 Procedures Surgical History Date Name Laterality Status Provider Name and Address Organization Details Recorded Time 03/28/20 Breast Cancer Screening completed Dejuan Mckenzie CMA [place] [facility] 03/26/2023 11:12:38 03/28/20 Osteoporosis Management in Women with Fracture completed Dejuan Mckenzie CMA [place] [facility] 03/26/2023 11:12:38 02/20/20 Colorectal Cancer Screening completed Queen Surnider [place] [facility] 02/19/2023 14:25:48 02/20/20 Breast Cancer Screening completed Queen Surinder [place] [facility] 02/19/2023 14:25:48 02/20/20 Osteoporosis Management in Women with Fracture completed Queen Surinder [place] [facility] 02/19/2023 14:25:48 02/20/20 Care of Older Adults- Advance Care Planning completed Queen Surinder MA [facility] 02/19/2023 14:25:48 02/20/20 Care of Older Adults- Functional Status Assessment completed Queen Surinder MA [facility] 02/19/2023 14:25:48 02/20/20 Comprehensive Diabetes Care- Hemoglobin A1c completed Queen Surinder MA [facility] 02/19/2023 14:25:48 02/20/20 Comprehensive Diabetes Care-Eye Exam completed Queen Surinder MA [facility] 02/19/2023 14:25:48 02/20/20 Transitions of Care-Medication Reconciliation Post-Discharge completed Queen Surinder MA [facility] 02/19/2023 14:25:48 01/27/20 Ear Irrigation completed KADY GASPAR, TANO [address] [place], [address], [facility] 01/26/2023 14:31:03 01/27/20 Care of Older Adults- Functional Status Assessment completed Marco Moy Business Information Analyst [facility] 01/16/2023 10:12:29 Appendectomy completed Tanesha Kendrick MA [facility] 01/26/2023 13:14:35 excision of bunion completed Tanesha Kendrick MA [facility] 01/26/2023 13:14:48 tonsillectomy completed Tanesha Kendrick MA [facility] 01/26/2023 13:14:56 Colonoscopy completed Queen Surinder MA [facility] 02/19/2023 14:25:27 Other completed Queen Surinder MA [facility] 02/19/2023 14:25:27 Tonsillectomy completed Queen Surinder MA [facility] 02/19/2023 14:25:27 Imaging Results Imaging Date Name Status LastModified by [facility] Details LastModified Time 02/22/2023 DEXA, axial skeleton + vertebral fracture assessment [place] [id number] [facility] [address] [facility], [place], [address], 03/07/2023 11:45:32 02/22/2023 MAMMO, screening, bilateral completed [place] [id number] [facility] [address] [place], [address], 03/07/2023 11:45:33 Procedure Notes None recorded. Medical Equipment None Reported. Allergies No known drug allergies Medications Name Sig Start Date Stop Date Status Note LastModified by Organization Details LastModified Time melatonin 3 mg tabs 01/26 completed Not Available Not Available Not Available binaxnow covid-19 ag card home test kit 01/26 completed Not Available Not Available Not Available quetiapine 25 mg tablet 01/26 completed Not Available Not Available Not Available ondansetron HCl 4 mg tablet Take 2 tablets twice a day by oral route for 5 days. 02/23 completed Not Available Not Available Not Available melatonin 3 mg tablet 01/26 completed Not Available Not Available Not Available ziprasidone 20 mg capsule 01/26 completed Not Available Not Available Not Available lorazepam 0.5 mg tablet 01/26 completed Not Available Not Available Not Available cephalexin 500 mg capsule 01/26 completed Not Available Not Available Not Available pantoprazole 40 mg tablet,delay ed release 01/26 completed Not Available Not Available Not Available docusate sodium 100 mg capsule 01/26 completed Not Available Not Available Not Available omeprazole 20 mg capsule,gorge yed release Take 1 capsule every day by oral route as needed. 04/24 completed Not Available Not Available Not Available dicyclomine 10 mg capsule Take 1 capsule 3 times a day by oral route for 5 days. 02/23 completed Not Available Not Available Not Available escitalopram 10 mg tablet TAKE 1 TABLET BY MOUTH EVERY DAY active Not Available Not Available No t Available Vitals Date Recorded Body height Body mass index (BMI) Body weight Heart rate Respiratory rate Oxygen saturation Oxygen saturation in Arterial blood by Pulse oximetry Body temperature Systolic blood pressure Diastolic blood pressure Provider Name and Address Organization Details Last Updated DateTime 3 162.56 cm 21.5 kg/m2 22372.0 5 g 65 /min 16 /min 99 % 99 % 98 [degF] 94 mm[Hg] 58 mm[Hg] Devang Madrid MD [address] [place] [address], [id number], [place] - [facility] 3 14:57:02 Date Recorded Body height Body mass index (BMI) Body weight Respiratory rate Pain severity - 0-10 verbal numeric rating [Score] - Reported Body temperature Oxygen saturation Oxygen saturation in Arterial blood by Pulse oximetry Heart rate Systolic blood pressure Diastolic blood pressure Provider Name and Address Organization Details Last Updated DateTime 3 162.56 cm 21.2 kg/m2 98892.9 6 g 16 /min 0 99.6 [degF] 98 % 98 % 63 /min 96 mm[Hg] 70 mm[Hg] Bushra Khan MA-Loom Changeover Operator [facility] 3 14:52:01 Date Recorded Body height Body weight Body mass index (BMI) Pain severity - 0-10 verbal numeric rating [Score] - Reported Body temperature Heart rate Respiratory rate Oxygen saturation Oxygen saturation in Arterial blood by Pulse oximetry Systolic blood pressure Diastolic blood pressure Provider Name and Address Organization Details Last Updated DateTime 3 162.56 cm 11692.8 6 g 21.1 kg/m2 0 98 [degF] 71 /min 16 /min 100 % 100 % 110 mm[Hg] 60 mm[Hg] Pattie Suarez CMA [facility] 3 13:30:53 Social History Question Answer Notes LastModified by Organizat ion Details LastModified Time Tobacco Smoking Status Former Smoker Tanesha Kendrick MA [facility], [facility] 01/26/2023 13:13:53 What Is Your Level Of Alcohol Consumption? None Information not available 01/26/2023 Is Blood Transfusion Acceptable In An Emergency? Yes Information not available 02/19/2023 What Is Your Level Of Caffeine Consumption? None Information not available 01/26/2023 Are You Currently Employed? No Information not available 02/19/2023 When Did You Quit Smoking? 16+yearspanchito parker Information not available 02/19/2023 Care Of Older Adults Completed 01/26/2023 Information not available 01/26/2023 Does The Patient Have An Advance Care Plan? No Information not available 01/26/2023 Advance Care Plan Present In Chart No Information not available 01/26/2023 Advanced Care Planning Was Discussed, The Patient Does Not Have Advance Care Plans At This Time. ACP Discussed Information not available 01/26/2023 Medication List Reviewed Yes Information not available 01/26/2023 Medication List Documented In Medical Record Yes Information not available 01/26/2023 Pain Assessment Completed No Pain Present Information not available 01/26/2023 Cognitive Status Alert And Oriented Information not available 01/26/2023 Sensory Hearing Good Informati on not available 01/26/2023 Sensory Vision Good Informatio n not available 01/26/2023 Sensory Speech Normal Informatio n not available 01/26/2023 Ambulatory Status Good Information not available 01/26/2023 Dressing Independent Information n ot available 01/26/2023 Toilet Use Independent Information n ot available 01/26/2023 Housework/Yard Work Independent Information not available 01/26/2023 Shopping Independent Information n ot available 01/26/2023 Eating Independent Information n ot available 01/26/2023 Walking Independent Information n ot available 01/26/2023 Bathing Independent Information n ot available 01/26/2023 Transferring Independent Information not available 01/26/2023 Cooking Independent Information n ot available 01/26/2023 What Was The Date Of Your Most Recent Tobacco Screening? 01/26/2023 Information not available 02/19/2023 How Many Children Do You Have? 0 Information not available 02/19/2023 What Is Your Current Pack Years? 30ormorepackyea rs Information not available 04/24/2023 Do You Have A Patient Advocate? Yes Information not available 02/19/2023 What Is Your Relationship Status? Information not available 02/19/2023 Are You Sexually Active? No Information not available 02/19/2023 At What Age Did You Start Smoking Tobacco? 14 Information not available 04/24/2023 Do You Use Any Illicit Or Recreational Drugs? No Information not available 02/19/2023 Has Tobacco Cessation Counseling Been Provided? No Information not available 02/19/2023 How Many Years Have You Smoked Tobacco? 15 Information not available 04/24/2023 Are You Currently In School? No Information not available 02/19/2023 Do You Or Have You Ever Used Any Other Forms Of Tobacco Or Nicotine? No Information not available 02/19/2023 Sex: Female Functional Status None recorded. Mental Status None recorded. Family History Relationship Description Onset Age of this Age Resolved Age Notes LastModified by Organization Details LastModified Time Mother Heart disease Not available 2022 13:11:58 Mother Substance abuse Not available 2022 14:25:13 Father Heart disease Not available 2022 13:11:58 Father Substance abuse Not available 2022 14:25:13 Brother Malignant tumor of kidney Not available 2022 14:25:13 Brother Malignant tumor of prostate Not available 2022 14:25:13 Brother Heart disease Not available 2022 14:25:13 Brother Substance abuse Not available 2022 14:25:13 Sister Substance abuse Not available 2022 14:25:13 Notes:03/28/2023 Medical History Condition Response Coronary Artery Disease N Date of last Colorectal CA Screening N Other N Gout N Colon Cancer N Blood Diseases N Breast Cancer N Depression Y COPD N Diverticulitis/Diverticulosis N Anxiety Disorder N Obesity N Arthritis N Mental Disorder N Cancer N Stroke N Bladder or Kidney Problems N High Cholesterol N Liver Disease N Headaches N Fibromyalgia N Kidney Disease N Allergies/Hayfever N Hospitalizations N Thyroid Problems N GI Problems Y ADD/ADHD N Eating Disorder N Osteoporosis/Osteopenia N Anemia N Constipation N Colon Polyps N Ovarian Cancer N Diabetes N Bleeding Disorder N Seizures/Epilepsy N Tuberculosis N AIDS/HIV N Congestive Heart Failure (CHF) N Hyperlipidemia N Abuse/Domestic Violence N Asthma N Lupus N Reflux/GERD Y Sleep Apnea N Hepatitis N Heart Disease N Pulmonary Embolism N Chronic Ear Infections N Hypertension N Gynecological HistoryNo gynecological history recorded. Obstetrics History GPAL:G 2 P 2 0 0 2 Type Value Full Term 2 Living 2 Total 2 Past Encounters Encounter ID Performer Location Encounter Start Date Encounter Closed Date Diagnosis/Indication Diagnosis SNOMED-CT Code Diagnosis ICD10 Code Diagnosis Note [id number] Zoey Thibodeaux MD [place] [place] [address] 01/26/2023 12:36:20 01/26/2023 14:41:23 Body mass index 20-24 - normal 435812073 Z68.22 22.2 Screening for malignant neoplasm of breast 125269691 Z12.39 Screening for osteoporosis 561328781 Z13.820 Increased frequency of urination 085345834 R35.0 kegal exercisesd iscussed medication such as oxybutynin / slingmonit or Screening for malignant neoplasm of colon 361689148 Z12.[address] Pennie Martell in [facility].state s normal but supposed to f/u in 1 year r/t other GI issues History of eating disorder 5964920810 38523 Z86.59 psych referral Bipolar disorder 6120470 4 F31.9 was on multiple meds but was able to wean off meds Mild recur rent major depression 59342456 F33.0 had started lexapro last year, states working wellmonito r Gastroesop hageal reflux disease 990048066 K21.9 omeprazole monitor Bunion 954947902 M21.61 9 bilat great toesgangli on cyst to medial right great toe Ganglion cyst 89139529 M 67.471 podiatry referral Pur[place] 408963915 D69.2 enc good skin care, reduce sun exposuremo nitor Elevated blood-pressure reading without diagnosis of hypertension 863892637 R03.0 bp 130/80 Impacted c erumen in left ear 8994362138 615000 H61.22 ear flush today Influenza vaccination declined 291425243 Z28.21 monitor [id number] KADY GASPAR NP [address] [place] [address] 02/19/2023 14:23:40 02/19/2023 14:55:42 Depressive disorder 28554582 F32.A taking escitalopr ammonitor Gastroesop hageal reflux disease without esophagitis 540294940 K21.9 taking omeprazole monitor Abdominal pain 76096740 R10.9 Conservati ve management at this time.This includes:r est eating a bland diet and avoiding alcohol until symptoms subside.BR AT diet instructio ns givenuse zofran and bentyl prnf/u with pcp if symptoms do not resolve for further evaluation [id number] Devang Madrid MD [address] [address] 02/23/2023 14:22:49 02/23/2023 15:21:42 Body mass index 20-24 - normal 564013365 Z68.21 Recurrent major depression 47648910 F33.9 lexapro daily and to wean as discussedc ont to followstre ss reduction Anxiety state 284259522 F41.1 cont lexapro dailycont to followstre ss reduction Mood disorder 85671976 F 39 cont lexapro dailycont to followstre ss reduction Gastroesop hageal reflux disease without esophagitis 971196052 K21.9 diet, weight lossppi prn. to wean as directed if ableegd done 2021 Senile osteoporosis 1804 0001 M81.0 bmd done 09/2022vit d and resistance activity as directedsc ript meds declined. Screening mammography 24 054655 Z12.31 mammo done yesterday Screening for malignant neoplasm of colon 284391835 Z12.11 cscope done heck ifob Bunion 696970852 M21.61 9 bilat R>Lto see podiatry when ready.cons ervative care. Senile purpura 68311317 D69.2 meds and supplement s reviewed. sun avoidance and moisturize [id number] Devang Madrid MD [address] [address] 03/28/2023 14:33:29 03/28/2023 15:10:31 Body mass index 20-24 - normal 718317997 Z68.21 21.2 Gastroesop hageal reflux disease without esophagitis 483241985 K21.9 diet, weight lossppi prn. to wean as directed if ableegd done 2021 Recurrent major depression 26487835 F33.9 doing well.lexap ro daily and to wean as discussedc ont to followstre ss reduction Anxiety state 776320747 F41.1 doing well and to wean lexapro as directedco nt to followstre ss reduction Mood disorder 51701888 F 39 doing well and to wean lexapro as directedco nt to followstre ss reduction Senile osteoporosis 1804 0001 M81.0 bmd done 09/2022vit d and resistance activity as directedsc ript meds declined. Screening mammography 24 244157 Z12.31 mammo utd 2022. Screening for malignant neoplasm of colon 771812960 Z12.11 cscope done heck ifob Bunion 030029935 M21.61 9 bilat R>Lto see podiatry when ready.cons ervative care. Senile purpura 30392306 D69.2 meds and supplement s reviewed. sun avoidance and moisturize . Visual disturbance 96954 001 H53.9 ophtho following and referred to local ophtho today [id number] KADY GASPAR NP [address] [place] [address] 04/24/2023 12:48:10 04/24/2023 14:25:05 Body mass index 20-24 - normal 809065445 Z68.21 Contact dermatitis 52744 004 L25.9 states hydrocorti sone cream helpsmay use moisturizi ng ointmentmo nitor Increased frequency of urination 053199873 R35.0 Increase fluid intake (water/ t cranberry juice)Wipe from front to backKegel exercisesG ood handwashin gWear cotton under-garm ents Urinary tr act infectious disease 79166457 N39.0 would like to wait until culture results are completed until starting antibiotic Gastroesop hageal reflux disease without esophagitis 601731450 K21.9 taking omeprazole monitor [id number] Rebekah Porter, CCM, KIL[employer] WORKER [facility] [address] [address] 04/25/2023 14:21:30 07/05/2023 12:28:35 Acute urinary tract infection 131209580 N39.0 [id number] Rebekah Porter, [facility], [employer] WORKER [facility] [address] [place] [address] 04/27/2023 10:39:35 07/05/2023 13:28:01 Acute urinary tract infection 256722208 N39.0 Health Concerns Section Related Observation LastModified by Organization Detai ls LastModified Time None Recorded Concern Status LastModified by Organization Details LastModified Time None Recorded Advance Directives Directive None Recorded Payers Encounter Date Sequence Insurance Name Policy Number Policy Perez Covered Member ID Perez Member ID Guarantor Name 02/23/2023 1 [employer] (MEDICARE REPLACEMENT HMO) Kori Barron [id number] Kori Anderson 03/28/2023 1 [employer] (MEDICARE REPLACEMENT HMO) Kori Barron [id number] Kori Anderson 04/24/2023 1 [employer] (MEDICARE REPLACEMENT HMO) Kori Barron [id number] Kori Anderson 04/25/2023 1 [employer] (MEDICARE REPLACEMENT HMO) Kori Barron [id number] Kori Anderson 04/27/2023 1 [employer] (MEDICARE REPLACEMENT HMO) Kori Barron [id number] Kori Barron Notes Date Note Type Note Provider Name and Address Organization Details Recorded Time 02/23/2023 text/html new to establish with me Devang Madrid MD [address] [place] [address], [phone], [facility] Interior Define [facility] 02/23/2023 15:28:12 03/28/2023 text/html test f/u and as below Devang Madrid MD [address] [place] [address], [phone], [facility] Interior Define [facility] 03/28/2023 15:15:33 04/24/2023 text/html rash on wrists KADY GASPAR NP [address] [place] [address], [phone], [facility] Interior [employer] [facility] 04/24/2023 14:16:23 04/25/2023 text/html Variety Saw Operator Sensitive Condition 24 hr Follow-UpReported bypatient.With whom are you speaking?patient Which Ambulatory Sensitive Condition was the patient diagnosed with?urinary tract infection Does the patient/caregiver have any questions after the PCP appointment?no Was the patient prescribed any new medications?no Does the patient/caregiver have any questions about their medications?no Since the PCP appointment, does the patient feel the condition has:remained the same Patient assistance/educati on provided for:when/how to call Care Management: [facility] policy and number reviewed; discuss PCP availability/walk in policy; ACS 3 business day post PCP appointment check in call Rebekah Porter CCM, LPN null [facility] [employer] 04/25/2023 15:02:14 04/27/2023 text/html Variety Saw Operator Sensitive Condition 72 hr Follow-UpReported bypatient.With whom are you speaking?patient Does the patient/caregiver have any questions after the PCP appointment?no If prescribed new medicine, has the patient started taking new medication as directed?n/a Does the patient/caregiver have any questions about their medications?no Since the PCP appointment, does the patient feel the condition has:improved Patient assistance/educati on provided for:when/how to call CCM: [facility] policy and number reviewed; discuss PCP availability/walk in policy; ACS 7 day post PCP appointment check in call Rebekah Porter CCM, LPN [employer] [facility] [employer] 04/27/2023 10:57:46 OBGyn Episode No OBEpisode recorded.
--- OUTSIDE RECORDS SUMMARY | 2024-06-19 14:29 | XMS_ITS | Encounter Summary ---
Author Organization [facility] Address [address] [place] [address] Care Team Providers Care Telephone Clerks Supervisor Name Role Phone Kira Vargas MD Primary Care Provider [phone] Reason for Visit * Reason Onset Date Comments Reschedule 04/25/2021 Encounter Details Date Type Department Care Team ([facility] st Contact Info) Description 04/25/2021 Telephone [facility] Central Scheduling Department [address] [place] [address] Telephone Intake, Staff Reschedule Social History Tobacco Use Types Packs/Day Years [...] on file documented as of this encounter Miscellaneous Notes * Telephone Encounter - Monique Johnson - 04/25/2021 12:31 PM EST Neuro and MS pt mistakenly cancelled appts for both clinics for 04/28 Contacted Neurology and the appt was rescheduled Left detailed vm msg with [facility] clinic Informed pt will receive call back documented in this encounter Plan of Treatment Not on file documented as of this encounter Visit Diagnoses Not on filedocumented in this encounter Care Teams Telephone Clerks Supervisor Relationship Specialty Start Date End Date Kira Vargas MD [address] [place] [address] PCP - General Family Medicine 07/20/17 02/18/24 documented as of this encounter
--- OUTSIDE RECORDS SUMMARY | 2024-06-19 14:29 | XMS_ITS ---
Author Organization [facility] Address [address] [place] [address] Care Team Providers Care Ranch Manager Name Role Phone Mariaa CLIFTON, Donna Kevin Primary Care Provider Un available Black, Erica Unavailable [phone] REASON FOR VISIT Orthotic Claim Encounters Encounter Location Date Provider Diagnosis [facility] [address] [place] [address] 05/29/2024 Erica Black Plan Of Treatment No Information Progress Notes * Kori BARRON LDOB:1955 (68 yo F)Acc No.[id number]:05/29/2024 Patient:?Kori BARRON :1955???Age:68 Y???Sex:Female Address:[address] [place] [address] [place] [address] * * Date:?
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
--- OUTSIDE RECORDS SUMMARY | 2024-06-19 14:29 | XMS_ITS ---
Author Organization [facility] Address [address] [place] [address] Care Team Providers Care Factory Focus Technician Name Role Phone Mariaa CLIFTON, Donna Kevin Primary Care Provider Un available Black, Erica Unavailable [phone] Allergies Allergen (clinical drug ingredient) Drug/Non Drug [...] use: Nonsmoker Vital Signs Height 5ft4in in 05/29/2024 Weight 127 lbs 05/29/2024 BMI 21.8 kg/m2 05/29/2024 Blood pressure systolic 120 mm Hg 05/29/19 25 Blood pressure diastolic 65 mm Hg 025 Encounters Encounter Location Date Provider Diagnosis [facility] [address] [place] [address] 05/29/2024 Erica Black Pain in left foot M79.672 [...] Treatment Notes Treatment Clinical Notes Section Notes 05/29/2024 Pain in left foot (ICD-10 - M79.672) 05/29/2024 Hallux valgus (acquired), right foot (ICD-10 - M20.11) 05/29/2024 Pain in left ankle and joints of left foot (ICD-10 - M25.572) 05/29/2024 Bursitis of left foot (ICD-10 - M77.52) 05/29/2024 Hallux valgus (acquired), left foot (ICD-10 - M20.12) 05/29/2024 Pain in right foot (ICD-10 - M79.671) 05/29/2024 Pain in right ankle and joints of right foot (ICD-10 - M25.571) 05/29/2024 Bursitis of right foot (ICD-10 - M77.51) 05/29/2024 Medial crossover toe, left foot (ICD-10 - M20.5X2) 05/29/2024 Medial crossover toe, right foot (ICD-10 - M20.5X1) 05/29/2024 Hammertoe of right foot (ICD-10 - M20.41) 05/29/2024 Hammertoe of left foot (ICD-10 - M20.42) Plan Of Treatment Medication Medication Name Sig Start Date Stop Date Notes Custom Orthotics as directed 05/29/2024 Next Appt Details Follow Up: 6 Weeks, Reason: Orthotic Disp/fit/eval Procedure Notes * Category Sub-Category Detail Notes DME L3000 Custom OT- Pre scription Custom Fabricated insert, each, removable Biomechanical and casting performed, Prescription Custom Fabricated Foot Insert, each, removable: This type of device is fabricated from a three dimensional model of the patient's own foot (e.g. cast, foam impression, or virtual true 3-D digital image). This type of orthotic is a functional device made of a sufficiently rigid material to control function and reduce pathological forces which has a molded heel cup and trim lines with a minimum of a 10mm heel cup height to provide both medial and lateral directive forces to control the hind and fore foot Progress Notes * Kori BARRON LDOB:1955 (68 yo F)Acc No.[id number]:05/29/2024 Progress Note Patient:?Kori BARRON Provider:?Erica Iglesias DPM :1955???Age:68 Y???Sex:Female D ate:05/29/2024 Address:[address] [place], [place] [id number] Pcp:Amena Ramos Subjective: * Chief Complaints: * [...] no. ?Children: yes, 2. ?Exercise: yes, playing [employer], bones and balance classes, bike riding, reading. ?Marital status: . 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 * Medications:?TakingEscitalop lynne Oxalate 5 MG Tablet 1 tablet Orally Once a day Medication List reviewed and reconciled with the patientTaking Escitalopram Oxalate 5 MG Tablet 1 tablet Orally Once a day Medication List reviewed and reconciled with the patient * Allergies:?Codeineyes[Allerg ies Verified] Objective: * Vitals:?Ht: 5ft4in, Wt:127, BMI:21.8, Shoe size: 9-9.5, BP:120/65mm Hg, Ht-cm: 162.56 cm, Wt-k.61 kg. * [...] b/l, medial drift to digits 2-5 b/l R>L.?FOOTWEAR:?worn, non-supportive.?Neurological: ?SENSORY:?Neurological exam reveals intact sensorium, pain sensation normal, vibration sensation intact, pinprick sensation is normal in the lower extremities, Pt denies, anesthesia, burning, paresthesia, tingling, B/L.?TINEL'S COMPRESSION:? Negative, Saphenous nerve distribution, B/L.?Vascular: ?DP PULSES (B):?2/4, B/L.?PT PULSES (B):?2/4, B/L.?CAPILLARY FILL TIME:?immediate, all digits, B/L.?TROPHIC CONDITION-TEXTURE/ELASTICITY/TURGOR/HAIR GROWTH (B):?normal, B/L.?TEMPERTURE GRADIENT (C):?normal, warm to cool, proximal to distal, B/L, B/L.?PIGMENTATION:?normal, B/L.?EDEMA (C):?absent, B/L.?Dermatologic: ?SKIN FINDINGS:?Skin exam reveals normal color, texture, elasticity, and turgor. There are no masses, nor excrescences. The interspaces are clear, B/L.? * Physical Examination:?L3000 Custom Fabricated OT:?Custom Orthotic?Custom Fabricated Orthoses.? Assessment: * Assessment: 1.?Pain in left foot [...] foot - M20.42??? Plan: * Treatment: * Procedures:?DME:?L3000 Custom OT- Prescription Custom Fabricated insert, each, removable?Biomechanical and casting performed, Prescription Custom Fabricated Foot Insert, each, removable: This type of device is fabricated from a three dimensional model of the patient's own foot (e.g. cast, foam impression, or virtual true 3-D digital image). This type of orthotic is a functional device made of a sufficiently rigid material to control function and reduce pathological forces which has a molded heel cup and trim lines with a minimum of a 10mm heel cup height to provide both medial and lateral directive forces to control the hind and fore foot.? * Procedure Codes:?L3000 Presc ription Custom Fabricated Foot [id number] Prescription Custom Fabricated Foot insert * Preventive Medicine:? ??Counseling:?Discussion:?-14: Office or other [...] have encouraged the patient to call the office.?Consult:?Pt scheduled for surgical consult next month however pt would like to try conservative care also.?BioMech.:?I discussed the Pts foot biomechanics with them and how it relates to their problem.?Orthotics:?I explained to the patient the benefits of OT use. I explained that orthoses are medically necessary to decrease the foot pain through proper mechanical control, support of their foot, decrease pronation, the delay of the formation of bunion, the delay of the formation of hammertoes, possibly prevent surgery, Custom OT: A comprehensive biomechanical exam, gate analysis, and casting for custom orthoses was performed for L3000 ea per foot.? ??Screening/Special Tests:?Fall Risk?Screening:?No falls in the past year ?FALLS: Screening for Future Fall Risk?Have you had any falls with injury in the past year??No * Follow Up:?6 Weeks (Reason: Orthotic Disp/fit/eval) * Images: * Sign off status: Completed true * Provider:?Erica Iglesias DPM Date:?2024 Generated for Krysten kowalski/Bianca/Aliciaransmitting on:?06/19/2024 02:28 PM EST History and Physical Notes * HPI (History of Present Illness) Category Sub-Category Detail Notes Category Not es Foot Pain Location: Inside, Great toe joint, B/L Duration: , several years Course: worse Aggravated: any pressure Treatments: rest/alter normal da adelaide activity, previous sx 20 years ago b/l Physical Examination Category Sub-Category Detail Notes Section Note s L3000 Custom Fabricated OT Custom Orthotic Custom Fabricated Orthoses Examination Category Sub-Category Detail Notes Category Not [...] Dorsal ROM,Limited 1st MPJ Plantar ROM b/l FOOTWEAR: worn, non-supportive DIGITAL DEFORMITIES: Digital contracture , PIPJ, 2-5 [...]
--- OUTSIDE RECORDS SUMMARY | 2024-06-19 14:30 | XMS_ITS | Patient Health Record ---
Author Organization [facility] Address [address] [place] [address] Care Team Providers Care Solution Mixer Name Role Phone Mariaa CLIFTON, Donna Kevin Primary Care Provider Un available Erica Iglesias Unavailable [phone] Becky Johnson Unavailable [phone] Allergies Allergen (clinical drug ingredient) Drug/Non Drug [...] Provider Speciality Internal M edicine [facility] Referred Provider Erica Iglesias Referred Address [address] ,[place], [place],[address], Referred Provider Specialty Podiatry Referral Priority Routine [...] Provider Speciality Internal M edicine Referred Organization [facility] Referred Provider Becky Johnson Referred Address [address] [place], [place],[address], Referred Provider Specialty Podiatry Referral Priority Routine Medications Medication SIG (Take, Route, Frequency, Duration) Notes Start Date End Date Status Custom Orthotics as directed 05/29/2024 Active Escitalopram Oxalate 5 MG 1 tablet Orally Once a day Active Social History Tobacco Use: Social History Observation Description Date Details (start date - stop date) Never Smoker NA - NA Alcohol Screen Question Answer Notes Did you have a drink containing alcohol in the p ast year? No Points 0 Interpretation Negative Tobacco use other than smoking: Question Answer Notes Are you an other tobacco user? No Tobacco Control (Standard) Question Answer Notes Tobacco use: Nonsmoker Problems Problem Type SNOMED Code ICD Code Onset Dates Problem Status W/U Status Risk Notes Problem Acquired hallux valgus (14650444) Hallux valgus (acquired), left foot (M20.12) Active confirmed Problem Acquired hallux valgus (54560371) Hallux valgus (acquired), right foot (M20.11) Active confirmed Problem 233653896 Hammertoe of left foot (M20.42) Active confirmed Problem 871865538 Hammertoe of right foot (M20.41) Active confirmed Vital Signs Blood pressure diastolic 70 mm Hg 06/11/2024 Height 5ft4in in 06/11/2024 Blood pressure systolic 120 mm Hg 06/11/2024 Weight 127 lbs 06/11/2024 BMI 21.8 kg/m2 06/11/2024 Encounters Encounter Location Date Provider Diagnosis [facility] [address] [place] [address] 03/31/2024 Erica Black Pain in left foot [...] M20.41 and Hammertoe of left foot M20.[address] [address] 05/29/2024 Erica Black Pain in left foot [...] M20.41 and Hammertoe of left foot M20.[address] [address] 06/11/2024 Becky Gardnera Pain in left foot M79.672 ; Hallux [...] M20.41 and Hammertoe of left foot M20.42 [facility] [address] [address] 05/29/2024 Ericamarti Iglesias [facility] [address] [address] 12/20/2023 Ericabob Iglesias [facility] [address] [address] 04/14/2024 Erica Iglesias Assessments Encounter Date Diagnosis (ICD Code) Assessment Notes Treatment Notes Treatment Clinical Notes Section Notes 03/31/2024 Pain in left foot (ICD-10 - M79.672) 03/31/2024 Hallux valgus (acquired), right foot (ICD-10 - M20.11) 05/29/2024 Pain in left foot (ICD-10 - M79.672) 06/11/2024 Pain in left foot (ICD-10 - M79.672) 06/11/2024 Hallux valgus (acquired), right foot (ICD-10 - M20.11) 05/29/2024 Hallux valgus (acquired), right foot (ICD-10 - M20.11) 03/31/2024 Pain in left ankle and joints of left foot (ICD-10 - M25.572) 05/29/2024 Pain in left ankle and joints of left foot (ICD-10 - M25.572) 03/31/2024 Bursitis of left foot (ICD-10 - M77.52) 06/11/2024 Pain in left ankle and joints of left foot (ICD-10 - M25.572) 05/29/2024 Bursitis of left foot (ICD-10 - M77.52) 03/31/2024 Hallux valgus (acquired), left foot (ICD-10 - M20.12) 06/11/2024 Bursitis of left foot (ICD-10 - M77.52) 03/31/2024 Pain in right foot (ICD-10 - M79.671) 05/29/2024 Hallux valgus (acquired), left foot (ICD-10 - M20.12) 06/11/2024 Hallux valgus (acquired), left foot (ICD-10 - M20.12) 06/11/2024 Pain in right foot (ICD-10 - M79.671) 05/29/2024 Pain in right foot (ICD-10 - M79.671) 03/31/2024 Pain in right ankle and joints of right foot (ICD-10 - M25.571) 03/31/2024 Bursitis of right foot (ICD-10 - M77.51) 06/11/2024 Pain in right ankle and joints of right foot (ICD-10 - M25.571) 05/29/2024 Pain in right ankle and joints of right foot (ICD-10 - M25.571) 05/29/2024 Bursitis of right foot (ICD-10 - M77.51) 03/31/2024 Medial crossover toe, left foot (ICD-10 - M20.5X2) 06/11/2024 Bursitis of right foot (ICD-10 - M77.51) 06/11/2024 Medial crossover toe, left foot (ICD-10 - M20.5X2) 03/31/2024 Medial crossover toe, right foot (ICD-10 - M20.5X1) 05/29/2024 Medial crossover toe, left foot (ICD-10 - M20.5X2) 05/29/2024 Medial crossover toe, right foot (ICD-10 - M20.5X1) 03/31/2024 Hammertoe of right foot (ICD-10 - M20.41) 06/11/2024 Medial crossover toe, right foot (ICD-10 - M20.5X1) 03/31/2024 Hammertoe of left foot (ICD-10 - M20.42) 05/29/2024 Hammertoe of right foot (ICD-10 - M20.41) 06/11/2024 Hammertoe of right foot (ICD-10 - M20.41) 06/11/2024 Hammertoe of left foot (ICD-10 - M20.42) 05/29/2024 Hammertoe of left foot (ICD-10 - M20.42) Plan Of Treatment No Information Insurance Providers Payer Name Payer Address Payer Phone Subscriber Number Group Number Insured Name Patient Relationship to Insured Coverage Start Date Coverage End Date [facility] [id number] MEENA Luciano [phone] [id number] Kori Barron Self - patient is the insured Medical (General) History Medical History History ICD Code Anxiety covid-19 Depression Osteoporosis Reflux ( GERD) Measles Chicken pox Mumps Surgical History Surgery Date(Month/Year) appendectomy 1969 tonsillectomy 1959 bunionectomy 1989
--- OUTSIDE RECORDS SUMMARY | 2024-06-19 14:30 | XMS_ITS | Data Portability ---
Author Organization [facility], Main Office Address [address] [place] [address] [address] [place] [address] Assessment No assessment recorded. Plan of Treatment Reminders Order Date Submit Date Provider Last Modified By Organization Details Last Modified Time Details Appointments None recorded. Lab None recorded. Referral None recorded. Procedures None recorded. Surgeries None recorded. Imaging None recorded. Medication Orders ranitidine 300 mg tablet 2016 017 INTERFACE [id number], [address] [place], [address], 7 12:31:21 fluconazol e 100 mg tablet 2016 017 INTERFACE [id number], [address] [place], [address], 7 12:31:21 clotrimazo le 10 mg dahlia 2016 017 INTERFACE [id number], [address] [place], [address], 7 12:31:25 Patient Targets Encounter Date Encounter Id Patient Goals Patient Target Last Modified By Organization Details Last Modified Time Plan is initally oral anti-fungalsreduce yeast overgrowth prior to SIBO treatmentnon-Pharma agents Candibactin BR (Metagenix)FC Cidal (Biotics)with lining help from:Inflamm[employer]ore Glutashield MucosagenUltraflor 420 as possible probiotic Not available 01/16/2017 14:35:44 Patient Instructions Encounter Date Encounter Id Patient Instructions Last Modified By Organization Details Last Modified Time 2016 [id number] Begin Medically necessary by [employer] 1) Cortisol Patient Services Specialist nightly for HPA axis realignment after such significant stress for brain neurotransmitter rebalancing 2) DGL 3X chew 1 tablet with every meal to enhance mucin secretion in upper gi tract to recovery from chronic stress gastritis 3) other lining soothing agents like Peppermint oil and Permeability factors may be needed as well. Not available 01/16/2017 14:31:43 pre treat SIBO a s part of Dysbiosis Not available 01/08/2017 21:08:51 Reason for Referral None Reported. Results Created Date Observation Date Name Description Value Unit Range Abnormal Flag Note LastModifiedBy Organization Detail LastModifiedTime Result Notes None recorded. Problems Name Problem SNOMED Code Status Onset Date Resolution Date Notes Provider Name and Address Organization Details Recorded Time Small bowel bacterial overgrowth syndrome 450031296 Active 2016 MD Lai Tucker [facility],[address] [place] [address], [address], [address], [facility] 7 11:29:54 Posttraumati c stress disorder 65821791 Active 2016 MD Lai Tucker [facility],[address] [place] [address], [address], [address], [facility] 7 11:39:02 Abnormal weight loss 866285555 Active 2009 140 = 2001 115 = 2013 MD Lai Tucker [facility],[address] [place] [address], [address] [place] [address], [address], [facility] 7 11:43:01 Fatigue 88246085 Active 2016 MD Lai Tucker [facility],[address] [place] [address], [address], [address], [facility] 7 11:43:17 Glossodynia 35602535 Active 2016 MD Lai Tucker [facility],[address] [place] [address], [address], [place], [address], [facility] 7 11:43:40 Problem Notes None recorded. Medical Equipment None Reported. Allergies No known drug allergies Medications Name Sig Start Date Stop Date Status Note LastModified by Organization Details LastModified Time fluconazole 100 mg tablet Take 1 tablet every other day by oral route for 30 days. active Not Available Not Available No t Available clotrimazole 10 mg dahlia Take 1 tablet 5 times a day by oral route for 14 days. active Not Available Not Available No t Available azithromycin 250 mg tablet 12/27 completed Not Available Not Available Not Available ranitidine 300 mg tablet Take 1 tablet every day by oral route at dinner for 30 days. active Not Available Not Available No t Available fluoxetine 10 mg capsule 12/27 completed Not Available Not Available Not Available omeprazole 20 mg capsule,delay ed release 12/27 completed Not Available Not Available Not Available Vitals None Recorded Social History None recorded. Functional Status None recorded. Mental Status None recorded. Family History Nothing Reported. Medical History No medical history recorded. Gynecological HistoryNo gynecological history recorded. Obstetrics History GPAL:G 0 P 0 0 0 0 Past Encounters Encounter ID Performer Location Encounter Start Date Encounter Closed Date Diagnosis/Indication Diagnosis SNOMED-CT Code Diagnosis ICD10 Code Diagnosis Note [id number] Nixon Romeo MD Main Office [address] [place] [address], [address] [place] [address] 2016 11:27:08 2016 12:45:02 Irritable bowel syndrome with diarrhea 390300215 K58.0 Physicians Elemental Diet to consider SIBO is confirmed needs SIBO Tx but with yeast overgrowth present Candidiasis 13997807 B37 .82 Gastro-eso phageal reflux disease with esophagitis 335709131 K21.0 Insomnia 922518743 G47.0 0 trial of Sleep cortisol Patient Services Specialist Health Concerns Section Related Observation LastModified by Organization Detai ls LastModified Time None Recorded Concern Status LastModified by Organization Details LastModified Time None Recorded Advance Directives Directive None Recorded Payers None recorded. Notes Date Note Type Note Provider Name and Address Organization Details Recorded Time 2016 text/html Abdominal PainReported bypatient.Quality:b loatingNotes:Some constipation long standing for last decade progressively worseningReflux/DANIELA DReported bypatient.Symptomsh eartburn;pain swallowing (odynophagia); in back of throat Onset/Timing:abrupt onset (a couple weeks ago) Context:non-smokerN otes:[place] best in 2006[place] Diet from [facility] until janet overgrowth Nixon Romeo MD [facility], [facility],[address] [place] [address], [address], [place], [address] 01/16/2017 14:35:50 OBGyn Episode No OBEpisode recorded.
--- OUTSIDE RECORDS SUMMARY | 2024-06-19 14:30 | XMS_ITS | Data Portability ---
Author Organization [place] - [facility] Address [address] [place] [address] Care Team Providers Care Grocery Shopper Name Role Phone ISACC BROWN Referring Provider [phone] Assessment No assessment recorded. Plan of Treatment Reminders Order Date Submit Date Provider Last Modified By Organization Details Last Modified Time Details Appointments None recorded. Lab unlisted lab - sars-cov- 2 (naat) 2020 [facility] Patient Reg, [address] [place], [address], 08:56:14 ESR (erythroc yte sedimenta tion rate), blood 2020 021 sjovanovic Not available 07:55:10 C-reactiv e protein, quantitat nicole, serum or plasma 2020 021 CHRIS Not available 16:32:09 Referral None recorded. Procedures None recorded. Surgeries None recorded. Imaging None recorded. Medication Orders None recorded. Patient TargetsNo targets recorded. Patient InstructionsNo instructions recorded. Reason for Referral None Reported. Results Created Date Observation Date Name Description Value Unit Range Abnormal Flag Note LastModifiedBy Organization Detail LastModifiedTime 04/04/2004/04/2021 C REACT NICOLE PROTE IN C reactive protein < 4.10 mg/L 0-5 normal Not Available [facility] Laboratory Department [address] [place], [address] 04/04/2021 16:32:09 04/04/20 21 04/04/2021 ERYTH ROCYT E SEDIM ENTAT ION RATE erythrocyte sedimentatio n rate < 1 mm/HR 0-29 normal RAN X2 Not Available [facility] Laboratory Department [address] [place], [address] 04/04/2021 20:39:52 04/16/20 21 04/17/2021 SARS- COV-2 (NAAT ) sars-cov-2 DETECT ED not detect . abnormal The Aptim a SARS- CoV-2 assay is a nucle ic acid ampli ficat ion in vitro diagn ostic test inten ded for the quali tativ e detec tion of RNA from SARS- CoV-2 using Trans cript ion Media nadeen Ampli ficat ion (TMA) isola nadeen and purif ied from nasop haryn geal (YARDER BOSS), nasal , mid-t urbin ate, and oroph aryng eal (OP) swab speci mens obtai emily from indiv idual s meeti ng COVID -19 clini kt and/o r epide miolo gical crite mary. The Aptim a TMA metho d is equiv alent in sensi tivit y and speci ficit y to metho ds utili zing PCR and RT-PC R. Resul ts are for the ident ifica tion of SARS- CoV-2 RNA which is gener ally detec table in upper respi rator y sampl es durin g the acute phase of infec tion. Posit nicole resul ts are indic ative of the prese nce of SARS- CoV-2 RNA; clini kt corre latio n with patie nt histo ry and other diagn ostic infor matio n is neces nu to deter mine patie nt infec tion statu s. Posit nicole resul ts do not rule out bacte rial infec tion or co-in fecti on with other virus es. Negat nicole resul ts do not precl ude SARS- CoV-2 infec tion and shoul d not be used as the sole basis for patie nt manag ement decis ions. Negat nicole resul ts must be combi emily with clini kt obser vatio ns, patie nt histo ry, and epide miolo gical infor matio n. The Aptim a SARS- CoV-2 assay is only for use under the Food and Drug Admin istra tion' s Emerg ency Use Autho rizat ion (EUA) . Not Available [facility] Laboratory Department [address], [place], [address] 04/17/2021 08:56:14 02/05/2002/05/2020 XR, ankle Locati on: [facility] [address] [facility] RADIOL OGY [phone] [place]. [address] FAX: [phone] ___ RAYO BARRONE [id number] 344 [facility] [id number] 999 Xander Kincaid PA-C OBSV: Other Provid er: ; [phone] [id number] ANKLE PAIN ANKLE RIGHT 3 OR MORE V [address]00* RIGHT ANKLE PAIN RADIOL OGY REPORT RAYO BARRONE 1955 Jeannie Kincaid. ANKLE RIGHT 3 OR MORE V 95461* Study: ANKLE RIGHT 3 OR MORE V 17271* HISTOR Y: RIGHT ANKLE PAIN Age: 64 years Gender : Female Compar keyla: No pertin ent prior Additi onal inform ation: 3 images Findin gs: No acute fractu re is seen. No ankle joint disloc ation. The bones appear mildly underm ineral ized, somewh at limiti ng the sensit ivity for the detect ion of acute bony abnorm ality. Soft tissue swelli ng by the medial malleo radha. Possib le small ankle joint effusi on. Impres fadia: No acute osseou s abnorm ality seen. See body of report . [facility] DE[facility] MENT [address] [place] [address] RADIOL OGY [phone] [place]. [address] FAX: [phone] ___ KAM BARRON [id number] 344 [facility] [id number] 1000 Xander Kincaid PA-C F OBSV: Other Provid er: ; [phone] [id number] ANKLE PAIN ANKLE RIGHT 3 OR MORE V 23695* RIGHT ANKLE PAIN RADIOL OGY REPORT Electr onical ly Signed in Starla justin By Romaine in Eliezer zavaleta 1911 Romaine Wu MD Radiol ogist IATR 1913 39 0.11 CC: Other Provid er: ; Xander Kincaid PA-C, [place] PA-C Christ o, Karl a MD Distri blake to: //name // //add1 // //add3 // //add2 // Author gwyn n #: Ins. Group #: Ins. Group Name: [facility] [employer] Ins. Policy #: [id number] Patient Reg [address] [facility], [place], [address], 02/06/2020 08:47:29 Result Notes None recorded. Problems Name Problem SNOMED Code Status Onset Date Resolution Date Notes Provider Name and Address Organization Details Recorded Time Gastroesophag eal reflux disease 547309704 Active 2004 Not Available [facility] 3 03:04:57 Palpitations 55982987 Active 2005 Not Available [facility] 3 03:04:57 Dysphagia 65550800 Active 2004 Not Available [facility] 3 03:04:57 Dysfunction of eustachian tube 83472842 Active 2003 Not Available [facility] 3 03:04:57 Bipolar I disorder 883956551 Active 2003 Not Available [facility] 3 03:04:57 Osteoporosis 50178390 Active 2004 Not Available [facility] 3 03:04:57 Anemia 428133784 Active 2005 Not Available [facility] 3 03:04:57 Iron deficiency anemia 46909836 Active 2004 Not Available [facility] 3 03:04:57 Disorder of bone and articular cartilage 659716392 Active 2004 Not Available [facility] 3 03:04:57 Chronic sinusitis 04087126 Active 2003 Not Available Replaced by [facility] 3 03:04:57 Pain of breast 31713088 Active 2004 Not Available Replaced by [facility] 3 03:04:57 Problem Notes None recorded. Procedures Surgical History None recorded. Imaging Results Imaging Date Name Status LastModified by Organiz ation Details LastModified Time 02/05/2020 XR, ankle completed [facility] [facility] Patient Reg [address] [facility], [place], [address], 02/06/2020 08:47:29 Procedure Notes None recorded. Medical Equipment None Reported. Allergies No known drug allergies Medications Name Sig Start Date Stop Date Status Note LastModified by Organization Details LastModified Time Medrol (Yash) 4 mg tablets in a dose pack Take 1 dose pk by oral route. 04/04 completed Not Available Not Available Not Available Reclast 5 mg/100 mL intravenous piggyback Inject 100 mL by intraveno us route. active Not Available Not Available No t Available diclofenac 1 % topical gel APPLY 2 GRAMS TO THE AFFECTED AREA(S) BY TOPICAL ROUTE 4 TIMES PER DAY 04/04 completed Not Available Not Available Not Available B12 monthly injection active Not Available Not Available No t Available Vitals Date Recorded Body height Body mass index (BMI) Body weight Provider Name and Address Organization Details Last Updated DateTime 02/05/2020 162.56 cm 21.8 kg/m2 45648.23 g Kunal Abbott [facility] 02/05/2020 10:31:25 Date Recorded Body weight Body mass index (BMI) Body height Provider Name and Address Organization Details Last Updated DateTime 04/04/2021 40203.86 g 21.1 kg/m2 162.56 cm Hodan Guido LPN [facility] 04/04/2021 13:45:30 Social History None recorded. Functional Status None recorded. Mental Status None recorded. Family History Nothing Reported. Medical History No medical history recorded. Gynecological HistoryNo gynecological history recorded. Obstetrics History GPAL:G 0 P 0 0 0 0 Past Encounters Encounter ID Performer Location Encounter Start Date Encounter Closed Date Diagnosis/Indication Diagnosis SNOMED-CT Code Diagnosis ICD10 Code Diagnosis Note [id number] [facility] [address] [place] [address] 1 09/05/2004 12:47:21 11/30/2005 01:40:42 [id number] [facility] use [address] [address] 12/08/2003 17:47:14 12/08/2003 19:13:31 [id number] [facility] use [address] [address] 1 03/02/2005 13:38:07 03/02/2005 13:38:13 [id number] [facility] use [address] [address] 1 06/07/2005 16:31:23 06/07/2005 16:49:39 [id number] [facility] use [address] [address] 1 09/13/2005 11:04:42 11/30/2005 03:03:25 [id number] [facility] [address] [place] [address] 1 06/13/2004 15:29:36 11/30/2005 03:03:25 [id number] [facility] use [facility] [address] [place] [address] 1 10/12/2004 15:26:18 11/30/2005 03:03:25 [id number] [facility] Family [address] [address] 01/18/2005 12:38:54 11/30/2005 03:03:25 [id number] Santos Coreas MD Orthopedi cs [address] [facility], [address] [place] [address] 02/05/2020 09:47:01 02/05/2020 10:58:09 Tibialis posterior tendinitis 303469836 M76.821 64yo retired female, nondiabeti c, nonsmoker nontraumat ic R medial ankle pain, inferior and posterior to medial malleolus since 05/2019 pt wore new shoes during the time her symptoms began pt is fairly active and walks 1 hour/day pain worse in the AM, improves with ambulation denies heel/plant ar foot pain denies numbness and tingling evaluated by Dr. 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 Barron reports recent joint/musc uloskeleta l pain that is now improving- The etiology of Ms. Barron's recent joint/musc uloskeleta l pain is currently unclear but may be related to receiving her first Reclast infusion and her first two COVID-19 vaccinatio ns- I have provided Ms. Barron with Reclast and COVID-19 vaccinatio n patient informatio n during today's visit- Ms. Barron's history, review of systems and physical examinatio n is seemingly inconsiste nt with an underlying rheumatic autoimmune or inflammato ry arthritic condition at this time- I will obtain repeat inflammato ry markers to assess for a systemic inflammato ry process Muscle pain 84380308 M79 .10 - Ms. Barron reports recent joint/musc uloskeleta l pain that is now improving- The etiology of Ms. Bees recent joint/musc uloskeleta l pain is currently unclear but may be related to receiving her first Reclast infusion and her first two COVID-19 vaccinatio ns- I have provided Ms. Barron with Reclast and COVID-19 vaccinatio n patient informatio n during today's visit- Ms. Bees history, review of systems and physical examinatio n is seemingly inconsiste nt with an underlying rheumatic autoimmune or inflammato ry arthritic condition at this time- I will obtain repeat inflammato ry markers to assess for a systemic inflammato ry process Fatigue 26775905 R53.83 - Ms. Barron reports recent fatigue that is now improving- The etiology of Ms. Bees recent fatigue is currently unclear but may be related to receiving her first Reclast infusion and her first two COVID-19 vaccinatio ns- I have provided Ms. Barron with Reclast and COVID-19 vaccinatio n patient informatio n during today's visit- Ms. Barron's history, review of systems and physical examinatio n is seemingly inconsiste nt with an underlying rheumatic autoimmune or inflammato ry arthritic condition at this time- I will obtain repeat inflammato ry markers to assess for a systemic inflammato ry process [id number] Gisselle Collazo NP [facility] [address] [place] [address] 04/16/2021 09:49:25 04/16/2021 11:14:08 Exposure to SARS-CoV-2 270122963 Z20.822 presents for covid testing only, declines provider evaluation Health Concerns Section Related Observation LastModified by Organization Detai ls LastModified Time None Recorded Concern Status LastModified by Organization Details LastModified Time None Recorded Advance Directives Directive None Recorded Payers Encounter Date Sequence Insurance Name Policy Number Policy Perez Covered Member ID Perez Member ID Guarantor Name 06/07/2005 1 [facility] ([facility] Rishi Rosado [id number] Rishi Rosado 09/13/2005 1 [facility] ([facility] Rishi Rosado [id number] Rishi Rosado 02/05/2020 1 [facility] - DUAL ELIGIBLE - [employer] - SENIOR PLAN (MEDICARE REPLACEMENT/ ADVANTAGE - HMO) Kam Barron [id number] Rishi Rosado 04/04/2021 1 [facility] - DUAL ELIGIBLE - [employer] - SENIOR PLAN (MEDICARE REPLACEMENT/ ADVANTAGE - HMO) Kam Salguero Anderson [id number] Rishi Rosado 04/16/2021 1 [facility]IGIBLE [facility]IC[facility] REPLACEMENT/ ADVANTAGE - HMO) Kam Murillot [id number] Rishi Rosado Notes Date Note Type Note Provider Name and Address Organization Details Recorded Time 0 text/html OrthopedicsReported bypatient.Location:Right ; Ankle Quality:Intermittent;Bur edwina;Sharp;Stabbing;Thro bbing Onset/Timing:Gradual Duration:5 months Context:Worsening Aggravating Factors:Activity;Walking ;Climbing Stairs Alleviating factors:boot x4-5 weeks Evaluations or Treatments for this problem:Physical Therapy ImagingX-ray (02/05/2020) Santos Coreas MD [address] [place] [address], [address], [facility] 02/20/2020 07:19:15 1 text/html {{Mr. Rogers*}} Anderson reports waking up one day recently and experiencing significant pain in her hands and legs. She reports that her joint pain went away after a couple of days without intervention. She denies any recent red, hot, swollen joints. She also reports having a rash on her face recently. She reports being evaluated by Dermatology and she reports testing negative for lupus. She also reports that she is being worked up for MS. According to recent records, bloodwork revealed a positive CRP level of 40 and a negative HEBER. She reports general body achiness and fatigue. She reports receiving her first Reclast infusion for the treatment of osteoporosis at the beginning of January. She also reports receiving her first two doses of the Pfizer COVID-19 vaccination (02/23 and 03/16 respectively). She believes that she had COVID-19 previously as she reports being ill and losing her sense of smell and taste for roughly 9 days. She reports that her joint pain, muscle pain and fatigue have seemingly been improving. She denies significant joint or musculoskeletal pain during today's visit. {{He She*}} has no active complaints at this time. {{He She*}} currently denies fever, chills, nausea, vomiting, chest pain or shortness of breath. Kit Baker MD [address] [facility] [place], [address], [facility] 04/04/2021 14:59:08 1 text/html pt presents for covid testing only. Gisselle Collazo NP [address] [facility] [place], [address], [facility] 04/16/2021 11:12:28 OBGyn Episode No OBEpisode recorded.
--- OUTSIDE RECORDS SUMMARY | 2024-06-19 14:30 | XMS_ITS | Data Portability ---
Author Organization [facility] Ashley Nguyen PCandaceCCandace, autoContract Address [address] [place] [address] Care Team Providers Care Organ Recovery Coordinator Name Role Phone LARRY GALEANA Primary Care Provider LARRY GALEANA Referring Provider [phone] Assessment No assessment recorded. Plan of Treatment Reminders Order Date Submit Date Provider Last Modified By Organization Details Last Modified Time Details Appointments None record ed. Lab None record ed. Referral None record ed. Procedures None record ed. Surgeries None record ed. Imaging None record ed. Medication Orders None record ed. Patient TargetsNo targets recorded. Patient Instructions Encounter Date Encounter Id Patient Instructions Last Modified By Organization Details Last Modified Time 02/18/2016 [id number] corns and callus es: care instructions cfisak Not available 02/23/2016 11:57:54 Discussion held regarding the bunion deformity: -Discussion held with the patient regarding the technical procedure for the correction of the bunion deformity in detail after visual evaluation. The patient was told that the surgical goal would be realignment of the 1st MTPJ region and reduction of the identified enlarged intermetatarsal angle. The stated goals of surgery would necessitate osteotomy of the first metatarsal, likely secondary osteotomy of the hallux itself. Generalized discussion with the patient regarding the associated benefits, risks, complications of the surgical correction of the bony deformity. -Preoperative and postoperative requirements were reviewed with the patient. The patient was made to understand that the procedure would be performed under monitored anesthesia in a hospital operating room setting. The patient would be required to be seen by {{his her*}} PRIMARY CARE PHYSICIAN within 30 days of the scheduled surgical date for the purpose of granting medical clearance for MAC anesthesia associated with surgery. The patient was given an opportunity to ask questions, and these questions were answered to {{his her*}} satisfaction. -The risks and complications of bunion surgery were discussed as well, including but not limited to delayed healing, excessive scarring, excessive swelling, failure of procedure, infection, non-union, numbness, prolonged edema, recurrence and shortened toe. Benefits would include anabaptism of normal 1st MTPJ mechanics, thereby reducing pain and a return to normal activities without limitations of pain or shoegear. -Conservative recommendations were made to the patient such as custom molded orthotics, wider shoegear, etc. in an attempt to alleviate the pain, thereby reducing the chance that surgery will be necessary in the future. Generic orthotics in the short term would be a good addition as a temporary measure to support the midtarsal joint region, thus reducing the splaying of the forefoot. -The patient was made to understand that if a significant amount of pain reduction is not obtained with these conservative measures, surgical correction is the definitive option. At this time, the patient clinically does appear to be close to the need for surgical intervention but does meet the medical necessity huddle of insurance coverage. -The patient was told to call the office to begin the surgical booking process when {{she* he}} feels that surgery appears imminent, that that is to say-- if the pateint is comfortable with moving forward with surgery with our office. With regard to the painful Lt. Foot, specifically the plantar aspect of the 2nd MTPJ region: -Discuss with the patient the reason that the forefoot? is due to the fact that the patient is in the early stages of rupture the plantar plate region of the aforementioned MTPJ and the MTPJ region is in the active process of progressing to complete rupture when taxed.? This type of progression is common when excessive pressure is placed chronically at the affected MTPJ region, as with a worsening bunion deformity. -The patient was told that {{she* he}} should only receive a cortisone injection to the region of the Metatarsophalangeal joint if conservative measures fail and surgery at the affected MTPJ region appears imminent.? A single cortisone injection could completely rupture of the capsular ligaments/ associated soft tissue thereby completely destabilizing/dislocat ing the aforementioned toe requiring surgery to restabilize the joint region. -Recommend that the patient ice the plantar forefoot region, with rolling action on basis, 15-20 minutes a session. -With regard to the associated hammertoe deformities--recommend the patient obtain square accommodative type shoegear with a high toe box. -DC use of flexible type shoegear (flip flops, sandal), barefoot walking & heeled shoegear in favor of more rigid soled, low heeled shoegear (running sneaker: [employer]ICS) to limit the ROM at the MPJ region. -Consideration to METATARSAL BAR to be placed on the new rigid soled shoegear behind the metatarsal head region of the outer sole by local cobbler. -Discussion held the patient regarding the possible need for surgical reconstruction/repair of the chronically problematic MTPJ joint with suturing of the ruptured plantar plate apparatus.? The patient was made to understand that the surgical procedure could be done in conjunction with other procedures such as MPJ arthroplasty (older patient population) or VITALY osteotomy of the metatarsal ( younger patient population).? At the same time, the hammertoe deformity would need to be addressed so that the correction/repair of the plantar plate would be definitive.? The hammertoe deformity would require PIPJ arthrodesis to accomplish the goal of correction of the abnormal metatarsal parabola thereby offloading the affected MTPJ region. -Preoperative requirements, postop course and potential pitfalls, a detailed review of the surgical technique used to correct the deformity were reviewed with the patient.? The patient had several questions and these were answered to his satisfaction and understands that surgery for this concern is reserved as a last resort after failure of conservative therapies. -We have discussed the possibility of a stress fracture or neuroma to the area today as well as an unlikely cause of the pain, and we will utilize further diagnostics in the future to exclude such possibilities if {{his her*}} symptoms do not subside. -Demonstrated proper taping of the affected MTPJ to prevent dorsal subluxation of the toe on the metatarsal head today. Employed KT tape in looping fashion to excessively plantarflex the toe at the MTPJ region. -Recommend that the patient consider MBT anti-shoe or generic rocker bottom sole sneakers for conservative treatment of concern. Dispense literature to the patient for review prior to deciding to pursue this treatment option. -Recommend Spenco orthotic arch supports as a trial for additional forefoot padding. Functional custom molded orthotics with extra thick Spenco may need to be added if the generic orthotics do not provide sufficient cushioning to the forefoot. -The patient was instructed to ice the pathological area, 15 min. on/off nightly and on PRN basis-especially after prolonged periods of weightbearing activity in closed toed shoegear). -Conservative debridement of painful hyperkeratotic tissue lesions, {{Rt. Lt. BL*}} plantar feet, noted on the feet with sterile 6400 blade following alcohol swab of the site. No dressings necessary. [email or web address] Not available 02/18/2016 12:22:55 Reason for Referral None Reported. Problems Name Problem SNOMED Code Status Onset Date Resolution Date Notes Provider Name and Address Organization Details Recorded Time Anemia 767256215 Completed 201502/18/2016 cliff darden [facility] 6 09:38:52 Depressive disorder 18178908 Active 2015 cliff darden [facility] 6 09:39:04 Problem Notes None recorded. Procedures Surgical History Date Name Laterality Status Provider Name and Address Organization Details Recorded Time Appendectomy completed cliff Ramirez [facility] 02/18/2016 09:40:27 Removal of tonsils completed [facility] 02/18/2016 09:40:50 Foot [facility] 02/18/2016 09:41:38 Imaging Results None recorded. Procedure Notes None recorded. Medical Equipment None Reported. Allergies No known drug allergies Medications Name Sig Start Date Stop Date Status Note LastModified by Organization Details LastModified Time trazodone 50 mg tablet active Not Available Not Available No t Available omeprazole 20 mg capsule,delay ed release active Not Available Not Available N ot Available Vitals Date Recorded Body height Body weight Body mass index (BMI) Systolic blood pressure Diastolic blood pressure Provider Name and Address Organization Details Last Updated DateTime 02/18/2016 162.56 cm 53382.08 g 20.6 kg/m2 120 mm[Hg] 70 mm[Hg] cliff wynn MA - [facility] 6 09:39:37 Social History Question Answer Notes LastModified by Organizat ion Details LastModified Time Tobacco Smoking Status Never Smoker Not Available [facility] 02/24/2020 03:19:03 DATE LAST SEEN BY PCP 11/29/2015 [email or web address] Information not available 02/18/2016 Sex: Unknown Functional Status None recorded. Mental Status None recorded. Family History Nothing Reported Notes:heart disease/cancer/d epression/bunions/hammertoes Medical History Condition Response Anemia Y Gynecological HistoryNo gynecological history recorded. Obstetrics History GPAL:G 0 P 0 0 0 0 Past Encounters Encounter ID Performer Location Encounter Start Date Encounter Closed Date Diagnosis/Indication Diagnosis SNOMED-CT Code Diagnosis ICD10 Code Diagnosis Note [id number] Diego Reinoso DPM [facility] Office [address] [place] [address] 02/18/2016 09:22:30 02/18/2016 09:54:14 Hallux valgus 232519821 M20.10 Acquired h ammer toe, other than great toe 13920058 M20.40 Corns and callus 4798852 00 L84 Health Concerns Section Related Observation LastModified by Organization Detai ls LastModified Time None Recorded Concern Status LastModified by Organization Details LastModified Time None Recorded Advance Directives Directive None Recorded Payers Encounter Date Sequence Insurance Name Policy Number Policy Perez Covered Member ID Perez Member ID Guarantor Name 02/18/2016 1 [facility] - MEDICARE PREFERRED (MEDICARE REPLACEMENT HMO) [facility] Kori Barron [id number] Kori Barron Notes Date Note Type Note Provider Name and Address Organization Details Recorded Time 02/18/2016 text/html BunionReported bypatient.Location:l eft 1st metatarsal; right 1st metatarsal Quality:aching; stabbing; sharp; constant; not changing Severity:moderate Duration:several years Timing:chronic Context:cannot identify Alleviating Factors:NSAIDs; no shoes Aggravating Factors:bending/squa tting; weight bearing; shoes Associated Symptoms:no weakness; no numbness; no tingling; no warmth; no ecchymosis; no instability; no aching;swelling;redn ess;catching/locking ;popping/clicking;gr inding;throbbing Previous Surgery:none Prior Imaging:none Previous Injections:none Previous Treatments:noneNotes :INITIAL evaluation of an increasingly painful bunion deformity. The patient is seen with (+) pain in the 1st MTPJ region & noted associated bunion deformity--SP surgery 20 years prior. The patient noted increasing pain associated with a widening of the forefoot, leading the patient to a decreased ability to find shoegear that fit comfortably. The patient notes that the pain associated with the widening forefoot has limited the ability to enjoy exercise and activities of daily living, worsening over the past several months. The patient perceives a worsening deformity and sought out this office visit for evaluation of the painful feet with discussion regarding the treatment options that are available. The patient noted that the medial aspect of the 1st MTPJ region does get inflamed with shoegear and weightbearing activity. Diego Reinoso DPM [address] [place] [address], [id number], [facility] 02/18/2016 12:24:45 OBGyn Episode No OBEpisode recorded.
== END 2024-06-19 14:44 | disposition home or self-care (01) ==
PROVIDERS: PCP Internal Medicine; Visit Provider Internal Medicine Endocrinology, Diabetes & Metabolism
DX: M81.0 Age-related osteoporosis without current pathological fracture (principal)
CPT/HCPCS: 99204

== ENCOUNTER → 2024-06-19 13:31 | Outpatient (BNVA) | payer OTHER, SELFPAY | PROVIDERS: PCP Internal Medicine; Visit Provider Internal Medicine Endocrinology, Diabetes & Metabolism | DX: M81.0 Age-related osteoporosis without current pathological fracture (principal) | CPT/HCPCS: 99202 ==

== ENCOUNTER 2024-07-02 13:22 | Outpatient (AMB) | payer OTHER, SELFPAY ==
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
[2024-07-02 13:30] VITALS: BP 100/60; PULSE 66; RESP 15; TEMP 36.7; O2SAT 98; BMI 20.9
--- OUTSIDE RECORDS SUMMARY | 2024-07-02 15:57 | XMS_ITS ---
Author Organization [facility] Address [address] [place] [address] Care Team Providers Care Computational Scientist Name Role Phone Mariaa CLIFTON, Donna Kevin Primary Care Provider Un available Black, Erica Unavailable [phone] REASON FOR VISIT Orthotic Claim Encounters Encounter Location Date Provider [facility] [address] [place] [address] 05/29/2024 Erica Black Plan Of Treatment No Information Progress Notes * Kori BARRON LDOB:1955 (68 yo F)Acc No.[id number]:05/29/2024 Patient:?Kori BARRON :1955???Age:68 Y???Sex:Female Address:[address] [place] [address] [place] [address] * * Date:?
--- OUTSIDE RECORDS SUMMARY | 2024-07-02 15:57 | XMS_ITS | Data Portability ---
Author Organization [place] - [facility] - IP Address [address] [place] [address] Care Team Providers Care Public Transportation Inspector Name Role Phone LAURA SCHNEIDER Primary Care Provider Assessment No assessment recorded. Plan of Treatment Reminders Order Date Submit Date Provider Last Modified By Organization Details Last Modified Time Details Appointments None recorded. Lab None recorded. Referral None recorded. Procedures None recorded. Surgeries None recorded. Imaging None recorded. Medication Orders omeprazole 20 mg capsule,del ayed release 2021 022 [facility]Pharmacy #[id number], [address] [facility] [place], [address], 03:32:39 Patient TargetsNo targets recorded. Patient Instructions Encounter Date Encounter Id Patient Instructions Last Modified By Organization Details Last Modified Time 05/31/2021 [id number] pancreatitis: care instructions Not available 06/01/2021 12:41:53 06/22/2021 [id number] nausea and vomiting: care instructions Not available 03/28/2022 13:06:24 08/31/2021 [id number] hemorrhoids: car e instructions Not available 09/01/2021 13:46:14 10/25/2021 [id number] learning about swallowing problems Not available 10/27/2021 14:50:48 Reason for Referral None Reported. Results Created Date Observation Date Name Description Value Unit Range Abnormal Flag Note LastModifiedBy Organization Detail LastModifiedTime 05/10/1905/01/2021 CT, abdom en + pelvi s, w/ contr ast No observ ation record ed. Not Available 2021 12:35:53 06/17/19 22 06/16/2021 MRI, abdom en, w/wo contr ast No observ ation record ed. [address] [facility] ([facility]) [address] [place] [address] [address], [place], [address], 06/22/2021 19:15:25 06/21/19 22 06/16/2021 MRI, abdom en, w/wo contr ast No observ ation record ed. [address] (Xrays Only) [address] [place], [address], 06/22/2021 19:15:43 08/13/19 22 08/11/2021 US, abdom en, limit ed No observ ation record ed. [email or web address] [facility] [address], [place], [address], 08/22/2021 15:04:46 08/24/19 22 08/17/2021 NM, hepat obili george scan, w/ CCK No observ ation record ed. [email or web address], [place], [address], 09/01/2021 08:00:42 Result Notes None recorded. Procedures Surgical History None recorded. Imaging Results Imaging Date Name Status LastModified by Organization Details LastModified Time 05/01/2021 CT, abdomen + pelvis, w/ contrast completed [email or web address] Information not available 05/10/2021 12:35:53 06/16/2021 MRI, abdomen, w/wo contrast completed [address] [facility] ([facility]) [address] [place] [address] [address], [place], [address], 06/22/2021 19:15:25 06/16/2021 MRI, abdomen, w/wo contrast completed [address] (Xrays Only) [address] [place], [address], 06/22/2021 19:15:43 08/11/2021 US, abdomen, limited completed [facility] [address], [place], [address], 08/22/2021 15:04:46 08/17/2021 NM, hepatobiliary scan, w/ CCK completed [email or web address] [facility] [address], [place], [address], 09/01/2021 08:00:42 Procedure Notes None recorded. Medical Equipment None Reported. Medications Name Sig Start Date Stop Date Status Note LastModified by Organization Details LastModified Time murine for ear wax removal system 6.5 % soln active Not Available Not Available Not Available vitamin d3 25 mcg (1000 ut) tabs [...] SNOMED-CT Code Diagnosis ICD10 Code Diagnosis Note [id number] [facility] [address], [address] [place] [address] 06/01/2021 12:39:33 06/01/2021 12:42:06 Gastroesophageal reflux disease without esophagitis 297151973 K21.9 Acute pancreatitis 92291 6007 K85.90 Epigastric pain 21923767 R10.13 [id number] [facility] Office [address] [place] [address] 07/15/2021 17:03:50 07/15/2021 17:34:08 Epigastric pain 95875891 R10.[id number] [facility] - Office [address] [address] 09/01/2021 13:44:43 09/01/2021 14:23:43 Gastroesophageal reflux disease without esophagitis 715552034 K21.9 Hemorrhoids 32456994 K64 .9 Right uppe r quadrant pain 892924956 R10.11 [id number] [facility] [address], [address] [place] [address] 10/01/2021 14:58:18 10/01/2021 14:59:07 Gastroesophageal reflux disease without esophagitis 677719093 K21.9 Nausea 882745835 R11.0 Abdominal bloating 57560 9008 R14.0 Epigastric pain 91055880 R10.13 [id number] [facility] [address], [address] [place] [address] 10/27/2021 14:50:15 10/27/2021 15:09:38 Gastroesophageal reflux disease without esophagitis 244041599 K21.9 Dysphagia 70676975 R13.[id number] [facility] - Office [address] [address] 03/28/2022 13:05:51 03/28/2022 13:06:35 Epigastric pain 94473912 R10.13 Nausea 421639278 R11.0 Health Concerns Section Related Observation LastModified by Organization Detai ls LastModified Time None Recorded Concern Status LastModified by Organization Details LastModified Time None Recorded Advance Directives Directive None Recorded Payers Encounter Date Sequence Insurance Name Policy Number Policy Perez Covered Member ID Perez Member ID Guarantor Name 05/31/2021 1 [facility] Megan Barron [id number] Kori Barron 06/22/2021 1 [facility] Megan Barron [id number] Kori Barron 07/14/2021 1 [facility] Megan Barron [id number] Kori Barron 08/31/2021 1 [facility] Megan Barron [id number] Kori Barron 10/25/2021 1 [facility] Megan Barron [id number] Kori Barron OBGyn Episode No OBEpisode recorded.
--- OUTSIDE RECORDS SUMMARY | 2024-07-02 15:57 | XMS_ITS ---
Author Organization [facility] Address [address] [place] [address] Care Team Providers Care Computer Support Specialist Name Role Phone Mariaa CLIFTON, Donna Kevin Primary Care Provider Un available Black, Erica Unavailable [phone] Allergies Allergen (clinical drug ingredient) Drug/Non Drug [...] 025 Encounters Encounter Location Date Provider Diagnosis [facility] [address] [place] [address] 05/29/2024 Erica Black Pain in left foot [...] * Kori BARRON LDOB:1955 (68 yo F)Acc No.[id number]:05/29/2024 Progress Note Patient:?Kori BARRON Provider:?Erica Iglesias DPM :1955???Age:68 Y???Sex:Female D ate:05/29/2024 Address:[address] [place], [place] [id number] Pcp:Amena Ramos Subjective: * Chief Complaints: * [...] no. ?Children: yes, 2. ?Exercise: yes, playing [employer], bones and balance classes, bike riding, reading. ?Marital status: . 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 * Medications:?TakingEscitalop lynne Oxalate 5 MG [...] Procedure Codes:?L3000 Presc ription Custom Fabricated Foot [id number] Prescription Custom Fabricated Foot insert * Preventive [...] Iglesias DPM Date:?2024 Generated for Krysten kowalski/Bianca/Aliciaransmitting on:?07/02/2024 03:57 PM EST History and Physical Notes * [...]
--- OUTSIDE RECORDS SUMMARY | 2024-07-02 15:58 | XMS_ITS | Clinical Summary ---
Author Organization [employer] Address [address] [place] [address] Care Team Providers Care Trim Attacher Name Role Phone Seth Louie MD Primary [...] intervention , Patient to reach out to [facility] team as needed, and Patient to engage in OP therapy Assessment & Plan (07/11/2023 11:09 PM EDT): Patient on escitalopram 10mg, no suicidal/homicidal ideas, will refer to therapist Encounters Date Type Department Care Team Description 04/28/2024 Refill [facility] [address] [place] [address] Seth Louie MD 04/24/2024 Refill [facility] [address] [place] [address] Letty Scott MD from Last 3 Months [...] patient's age to complete this topic Insurance [facility] [place] [address] Care Teams Trim Attacher Relationship Specialty Start Date End Date Seth Louie MD [address] [place] [id number] PCP - General Internal Medicine 07/19/23
--- OUTSIDE RECORDS SUMMARY | 2024-07-02 15:58 | XMS_ITS | Data Portability ---
Author Organization JERRY FILIBERTO [facility], Main Office Address [address] [place] [address] [address] [place] [address] Assessment No assessment recorded. Plan of Treatment Reminders Order Date Submit Date Provider Last Modified By Organization Details Last Modified Time Details Appointments None recorded. Lab None recorded. Referral None recorded. Procedures None recorded. Surgeries None recorded. Imaging None recorded. Medication Orders ranitidine 300 mg tablet 2016 017 [id number], [address] [place], [address], 7 12:31:21 fluconazol e 100 mg tablet 2016 017 [id number], [address] [place], [address], 7 12:31:21 clotrimazo le 10 mg dahlia 2016 017 INTERFACE [id number], [address] [place], [address], 7 12:31:25 Patient Targets Encounter Date Encounter [...] By Organization Details Last Modified Time 2016 [id number] Begin Medically necessary by [employer] 1) Cortisol Print Line Supervisor nightly for HPA axis realignment after such [...] Recorded Time Small bowel bacterial overgrowth syndrome 600995940 Active 2016 MD Lai Tucker [facility],[address] [place] [address], [address], [address], [facility] 7 11:29:54 Posttraumati c stress disorder 24680145 Active 2016 MD Lai Tucker [facility],[address] [place] [address], [address], [address], [facility] 7 11:39:02 Abnormal weight loss 325997733 Active 2009 140 = 2001 115 = 2013 MD Lai Tucker [facility],[address] [place] [address], [address] [place] [address], [address], [facility] 7 11:43:01 Fatigue 38490038 Active 2016 MD Lai Tucker [facility],[address] [place] [address], [address], [address], [facility] 7 11:43:17 Glossodynia 93238245 Active [address] [facility],[address] [place] [address], [address], [place], [address], [facility] 7 11:43:40 Problem Notes None recorded. Medical [...] SNOMED-CT Code Diagnosis ICD10 Code Diagnosis Note [id number] Nixon Romeo MD Main Office [address] [place] [address], [address] [place] [address] 2016 11:27:08 2016 12:45:02 Irritable bowel syndrome with diarrhea 645451612 K58.0 Physicians Elemental Diet to consider SIBO is confirmed needs SIBO Tx but with yeast overgrowth present Candidiasis 24784032 B37 .82 Gastro-eso phageal reflux disease with esophagitis 564049568 K21.0 Insomnia 043798412 G47.0 0 trial of Sleep cortisol Print Line Supervisor Health Concerns Section Related Observation LastModified by [...] Onset/Timing:abrupt onset (a couple weeks ago) Context:non-smokerN otes:[place] [facility] in 2006[place]ah Diet from [facility] until janet overgrowth Nixon Romeo MD [facility], [facility],[address] [place] [address], [address], [place], [address] 01/16/2017 14:35:50 OBGyn Episode No OBEpisode recorded.
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
--- OUTSIDE RECORDS SUMMARY | 2024-07-02 15:58 | XMS_ITS | Data Portability ---
Author Organization [facility] Ashley Nguyen [employer] Address [address] [place] [address] Care Team Providers Care Pathology Specialist Name Role Phone LARRY GALEANA Primary Care Provider [phone] LARRY GALEANA Referring Provider Assessment No assessment recorded. Plan of [...] By Organization Details Last Modified Time 02/18/2016 [id number] corns and callus es: care instructions cfisak [...] recurrence and shortened toe. Benefits would include mormonism of normal 1st MTPJ mechanics, thereby reducing [...] and Address Organization Details Recorded Time Anemia 109807631 Completed 201502/18/2016 cliff darden [facility] 6 09:38:52 Depressive disorder 33506548 Active 2015 cliff darden [facility] 6 09:39:04 Problem Notes None recorded. Procedures Surgical History Date Name Laterality Status Provider Name and Address Organization Details Recorded Time Appendectomy completed cliff Ramirez [facility] 02/18/2016 09:40:27 Removal of tonsils completed [facility]ynn [facility] 02/18/2016 09:40:50 Foot [facility] 02/18/2016 09:41:38 Imaging Results [...] Details Last Updated DateTime 02/18/2016 162.56 cm 14351.08 g 20.6 kg/m2 120 mm[Hg] 70 mm[Hg] cliff wynn [place] - [facility] 6 09:39:37 Social History Question Answer Notes LastModified by Organizat ion Details LastModified Time Tobacco Smoking Status Never Smoker Not Available [facility] 02/24/2020 03:19:03 DATE LAST SEEN BY PCP 11/29/2015 [email or web address] Information not available 02/18/2016 Sex: Unknown Functional Status None recorded. Mental Status None recorded. Family History Nothing Reported Notes:heart disease/cancer/d epression/bunions/hammertoes Medical History Condition Response Anemia Y Gynecological HistoryNo gynecological history recorded. Obstetrics History GPAL:G 0 P 0 0 0 0 Past Encounters Encounter ID Performer Location Encounter Start Date Encounter Closed Date Diagnosis/Indication Diagnosis SNOMED-CT Code Diagnosis ICD10 Code Diagnosis Note [id number] Diego Reinoso DPM [facility] Office [address] [place] [address] 02/18/2016 09:22:30 02/18/2016 09:54:14 Hallux valgus 452572495 M20.10 Acquired h ammer toe, other than great toe 96310648 M20.40 Corns and callus 7134353 00 L84 Health Concerns Section Related Observation LastModified by Organization Detai ls LastModified Time None Recorded Concern Status LastModified by Organization Details LastModified Time None Recorded Advance Directives Directive None Recorded Payers Encounter Date Sequence Insurance Name Policy Number Policy Perez Covered Member ID Perez Member ID Guarantor Name 02/18/2016 1 [facility] - MEDICARE PREFERRED (MEDICARE REPLACEMENT HMO) [facility] Kori Barron [id number] Kori Barron Notes Date Note Type [...] shoegear and weightbearing activity. Diego Reinoso DPM [address] [place] [address], [address], [facility] 02/18/2016 12:24:45 OBGyn Episode No OBEpisode recorded.
--- OUTSIDE RECORDS SUMMARY | 2024-07-02 15:58 | XMS_ITS | Data Portability ---
Author Organization [place] - [facility] Address [address] [place] [address] Care Team Providers Care Entry Level Project Coordinator Name Role Phone ISACC BROWN Referring Provider [phone] Assessment No assessment recorded. Plan of Treatment Reminders Order Date Submit Date Provider Last Modified By Organization Details Last Modified Time Details Appointments None recorded. Lab unlisted lab - sars-cov- 2 (naat) 2020 [facility] Patient Reg, [address] [place], [address], 08:56:14 ESR (erythroc yte sedimenta tion rate), [...] < 4.10 mg/L 0-5 normal Not Available [facility] Laboratory Department [address] [place], [address] 04/04/2021 16:32:09 04/04/20 21 04/04/2021 ERYTH ROCYT E SEDIM ENTAT ION RATE erythrocyte sedimentatio n rate < 1 mm/HR 0-29 normal RAN X2 Not Available [facility] Laboratory Department [address] [place], [address] 04/04/2021 20:39:52 04/16/20 21 04/17/2021 SARS- COV-2 [...] and purif ied from nasop haryn geal (HOPPER OPERATOR), nasal , mid-t urbin ate, and oroph [...] Autho rizat ion (EUA) . Not Available [facility] Laboratory Department [address], [place], [address] 04/17/2021 08:56:14 02/05/2002/05/2020 XR, ankle Locati on: [facility] [address] [facility] RADIOL OGY [phone] [place]. [address] FAX: [phone] ___ RAYO BARRONE [id number] [facility] [id number] 999 Xander Kincaid PA-C OBSV: Other Provid er: ; [phone] ANKLE PAIN ANKLE RIGHT 3 [place] MORE V [address]* RIGHT ANKLE PAIN RADIOL OGY REPORT RAYO BARRONE 1955 Jeannie Kincaid. ANKLE RIGHT 3 [place] MORE V 67587* Study: ANKLE RIGHT 3 OR MORE V 50361* HISTOR Y: RIGHT ANKLE PAIN Age: 64 [...] [facility] [address] [place] [address] RADIOL OGY [phone] [place]. [address] FAX: [phone] ___ KAM BARRON [id number] [facility] [id number] 1000 Xander Kincaid PA-C F OBSV: Other Provid er: ; [phone] ANKLE PAIN ANKLE RIGHT 3 [place] V [address]* RIGHT ANKLE PAIN RADIOL OGY REPORT Electr [...] #: Ins. Group #: Ins. Group Name: [facility] [employer] Ins. Policy #: [id number] [address] Patient Reg [address] [facility], [place], [address], 02/06/2020 08:47:29 Result Notes None recorded. Problems Name Problem SNOMED Code Status Onset Date Resolution Date Notes Provider Name and Address Organization Details Recorded Time Gastroesophag eal reflux disease 057779700 Active 2004 Not Available [facility] 3 03:04:57 Palpitations 43847862 Active 2005 Not Available [facility] 3 03:04:57 Dysphagia 63088297 Active 2004 Not Available [facility] 3 03:04:57 Dysfunction of eustachian tube 17111652 Active 2003 Not Available [facility] 3 03:04:57 Bipolar I disorder 004889000 Active 2003 Not Available [facility] 3 03:04:57 Osteoporosis 32008698 Active 2004 Not Available [facility] 3 03:04:57 Anemia 569065706 Active 2005 Not Available [facility] 3 03:04:57 Iron deficiency anemia 54880381 Active 2004 Not Available [facility] 3 03:04:57 Disorder of bone and articular cartilage 925118186 Active 2004 Not Available [facility] 3 03:04:57 Chronic sinusitis 34689570 Active 2003 Not Available [facility] 3 03:04:57 Pain of breast 46629289 Active 2004 Not Available [facility] 3 03:04:57 Problem Notes None recorded. Procedures Surgical History None recorded. Imaging Results Imaging Date Name Status LastModified by Organiz ation Details LastModified Time 02/05/2020 XR, ankle completed [facility] Patient [facility] [address] [facility], [place], [address], 02/06/2020 08:47:29 Procedure Notes None recorded. Medical [...] Updated DateTime 02/05/2020 162.56 cm 21.8 kg/m2 73374.23 g Kunal Abbott [facility] 02/05/2020 10:31:25 Date Recorded Body weight Body mass index (BMI) Body height Provider Name and Address Organization Details Last Updated DateTime 04/04/2021 74942.86 g 21.1 kg/m2 162.56 cm Hodan Guido LPN [facility] 04/04/2021 13:45:30 Social History None recorded. Functional Status None recorded. Mental Status None recorded. Family History Nothing Reported. Medical History No medical history recorded. Gynecological HistoryNo gynecological history recorded. Obstetrics History GPAL:G 0 P 0 0 0 0 Past Encounters Encounter ID Performer Location Encounter Start Date Encounter Closed Date Diagnosis/Indication Diagnosis SNOMED-CT Code Diagnosis ICD10 Code Diagnosis Note [id number] [facility] [address] [place] [address] 1 09/05/2004 12:47:21 11/30/2005 01:40:42 [id number] [facility] [address] [address] 12/08/2003 17:47:14 12/08/2003 19:13:31 [id number] [facility] [address] [address] 1 03/02/2005 13:38:07 03/02/2005 13:38:13 [id number] [facility] [address] [address] 06/07/2005 16:31:23 06/07/2005 16:49:39 [id number] [facility] [address] [address] 1 09/13/2005 11:04:42 11/30/2005 03:03:25 [id number] [facility] [address] [place] [address] 1 06/13/2004 15:29:36 11/30/2005 03:03:25 [id number] [facility] [address] [place] [address] 1 10/12/2004 15:26:18 11/30/2005 03:03:25 [id number] [facility] [address] [address] 01/18/2005 12:38:54 11/30/2005 03:03:25 [id number] Santos Coreas MD Orthopedi cs [address] [facility], [address] [place] [address] 02/05/2020 09:47:01 02/05/2020 10:58:09 Tibialis posterior tendinitis 374546683 M76.821 64yo retired female, nondiabeti c, nonsmoker [...] Bradshaw, foot and ankle specialist , in [place], [place] PT helped little walking boot helps [...] continue wearing walking boot f/u with her clinical veterinarian Landon 032920955 M21.61 1 see above [id number] Kit Baker MD [facility] [address] [facility] [address] [place] [address] 04/04/2021 13:39:00 04/04/2021 16:03:23 Multiple joint pain 47579410 M25.50 - Ms. Barron reports recent joint/musc uloskeleta l pain that is now improving- The etiology of Ms. Barron's recent joint/musc uloskeleta l pain is currently unclear but may be related to receiving her first Reclast infusion and her first two COVID-19 vaccinatio ns- I have provided Ms. aBrron with Reclast and COVID-19 vaccinatio n patient informatio n during today's visit- Ms. Barron's history, review of systems and physical examinatio n is seemingly inconsiste nt with an underlying rheumatic autoimmune or inflammato ry arthritic condition at this time- I will obtain repeat inflammato ry markers to assess for a systemic inflammato ry process Muscle pain 78467094 M79 .10 - Ms. Barron reports recent [...] for a systemic inflammato ry process Fatigue 77897189 R53.83 - Ms. Barron reports recent fatigue [...] assess for a systemic inflammato ry process [id number] Gisselle Collazo NP [facility] [address] [place] [address] 04/16/2021 09:49:25 04/16/2021 11:14:08 Exposure to SARS-CoV-2 671359595 Z20.822 presents for covid testing only, declines provider evaluation Health Concerns Section Related Observation LastModified by Organization Detai ls LastModified Time None Recorded Concern Status LastModified by Organization Details LastModified Time None Recorded Advance Directives Directive None Recorded Payers Encounter Date Sequence Insurance Name Policy Number Policy Perez Covered Member ID Perez Member ID Guarantor Name 06/07/2005 1 [facility] Rishi Rosado [id number] Rishi Rosado 09/13/2005 1 [facility] ([facility]) Rishi Rosado [id number] Rishi Rosado 02/05/2020 1 [facility] - DUAL ELIGIBLE - [employer] - SENIOR PLAN (MEDICARE REPLACEMENT/ ADVANTAGE - HMO) Kam Barron [id number] Rishi Rosado 04/04/2021 1 [facility] - DUAL ELIGIBLE - [employer] - SENIOR PLAN (MEDICARE REPLACEMENT/ ADVANTAGE - HMO) Kam Salguero Anderson [id number] Rishi Rosado 04/16/2021 1 [facility]IG[facility] (MEDICARE REPLACEMENT/ ADVANTAGE - HMO) Kam Murillot [id number] Rishi Rosado Notes Date Note Type Note Provider Name and Address Organization Details Recorded Time 0 text/html OrthopedicsReported bypatient.Location:Right ; Ankle Quality:Intermittent;Bur edwina;Sharp;Stabbing;Thro bbing Onset/Timing:Gradual Duration:5 months Context:Worsening Aggravating Factors:Activity;Walking ;Climbing Stairs Alleviating factors:boot x4-5 weeks Evaluations or Treatments for this problem:Physical Therapy ImagingX-ray (02/05/2020) Santos Coreas MD [address] [place] [address], [phone], [facility] 02/20/2020 07:19:15 1 text/html {{Mr. Rogers*}} [...] shortness of breath. Kit Baker MD [address] [facility] [place], [address], [facility] 04/04/2021 14:59:08 1 text/html pt presents for covid testing only. Gisselle Clolazo NP [address] [facility] [place], [address], [facility] 04/16/2021 11:12:28 OBGyn Episode No OBEpisode recorded.
--- OUTSIDE RECORDS SUMMARY | 2024-07-02 15:58 | XMS_ITS | Data Portability ---
Author Organization [facility] Address [address] [place] [address] Care Team Providers Care Recruiting Internship Name Role Phone ISACC BROWN Primary Care Provider [phone] Assessment No assessment recorded. Plan of Treatment Reminders Order Date Submit Date Provider Last Modified By Organization Details Last Modified Time Details Appointments None recorded. Lab culture, urine + sensitivity 2022 023 [employer] [facility], [address] [place], [address], 3 07:48:28 urinalysis, dipstick [email or web address], [address] [place] [address], [address], 3 14:15:44 fecal occult blood, stool 2022 023 [facility], [address] [place] [address], [address], 3 12:45:49 Referral ophthalmolo gist referral - Please call patient to schedule then fax back appointment confirmatio n to Meg Orantes @ or can call my direct line with any questions regarding referral . Thank you!) 2022 023 [facility], [address], [address], [place], [address], 4 08:22:45 Procedures None recorded. Surgeries None recorded. Imaging None recorded. Medication Orders None recorded. Patient TargetsNo targets recorded. Patient Instructions Encounter Date Encounter Id Patient Instructions Last Modified By Organization Details Last Modified Time 02/23/2023 [id number] cpe at f/u labs and tests reviewed [email or web address] Not available 02/23/2023 15:26:05 03/28/2023 [id number] cpe at f/u labs and tests reviewed Not available 03/28/2023 15:15:02 04/24/2023 [id number] Urinary Tract Infection (UTI) in Women: Care Instructions [email or web address] Not available 04/24/2023 14:15:42 04/25/2023 [id number] Pt waiting on culture for abx. Pt has no other concerns. Will follow per protocol. Not available 04/25/2023 15:02:10 04/27/2023 [id number] Pt reports doing well with no symptoms anymore, rash improving. Pt encouraged to call us 1st with any future concerns. Not available 04/27/2023 10:57:41 Reason for Referral Behavioral Health Counselor Referral for Visual disturbance Please call patient to schedule then fax back appointment confirmation to Meg Orantes @ [phone] or can call my direct line with any questions regarding referral [phone]. Thank you!) Referring Physician: Devang Madrid, Family Medicine, Encounter Date: 03/28/2023 Results Created Date Observation Date Name Description Value Unit Range Abnormal Flag Note LastModifiedBy Organization Detail LastModifiedTime 01/27/2001/26/2023 urina lysis , dipst ick bilirubin negati ve negati ve normal Not Available [address] [place], [address], 01/26/2023 13:47:11 01/27/20 23 01/26/2023 urina lysis , dipst ick blood trace- intact negati ve abnormal Not Available [address] [place], [address], 01/26/2023 13:47:11 01/27/20 23 01/26/2023 urina lysis , dipst ick clarity clear clear normal Not Available [address], [address], 01/26/2023 13:47:11 01/27/20 23 01/26/2023 urina lysis , dipst ick color yellow yellow normal Not Available [address], [address], 01/26/2023 13:47:11 01/27/20 23 01/26/2023 urina lysis , dipst ick glucose negati ve mg/dL negati ve normal Not Available [address], [address], 01/26/2023 13:47:11 01/27/20 23 01/26/2023 urina lysis , dipst ick ketone negati ve mg/dL negati ve normal Not Available [address], [address], 01/26/2023 13:47:11 01/27/20 23 01/26/2023 urina lysis , dipst ick leukocytes negati ve negati ve normal Not Available [address], [address], 01/26/2023 13:47:11 01/27/20 23 01/26/2023 urina lysis , dipst ick nitrite negati ve negati ve normal Not Available [address], [address], 01/26/2023 13:47:11 01/27/20 23 01/26/2023 urina lysis , dipst ick pH 5.5 4.99-7 .6 normal Not Available [address], [address], 01/26/2023 13:47:11 01/27/20 23 01/26/2023 urina lysis , dipst ick protein negati ve mg/dL negati ve normal Not Available [address], [address], 01/26/2023 13:47:11 01/27/20 23 01/26/2023 urina lysis , dipst ick specific gravity 1.025 1.004- 1.031 normal Not Available [address], [address], 01/26/2023 13:47:11 01/27/20 23 01/26/2023 urina lysis , dipst ick urobilinogen 0.2 0-2.1 normal Not Available [address], [address], 01/26/2023 13:47:11 02/13/2002/13/2023 TSH+F REE T4 TSH 0.833 uIU/m L 0.450- 4.500 Not Available [facility] ([facility]) [address] [place], [address], 02/13/2023 06:11:28 02/13/2002/13/2023 TSH+F REE T4 T4,free(dire ct) 1.23 NG/dL 0.82-1 .77 Not Available [facility] ([facility]) [address] [facility], [place], [address], 02/13/2023 06:11:28 02/13/20 23 02/12/2023 CBC WITH DIFFE RENTI AL/PL ATELE T WBC 4.5 x10e3 /uL 3.4-10 .8 Not Available [facility] ([facility]) [address] [facility], [place], [address], 02/13/2023 06:11:29 02/13/2002/12/2023 CBC WITH DIFFE RENTI AL/PL ATELE T RBC 4.07 x10e6 /uL 3.77-5 .28 Not Available [facility] ([facility]) [address] [facility], [place], [address], 02/13/2023 06:11:29 02/13/2002/12/2023 CBC WITH DIFFE RENTI AL/PL ATELE T hemoglobin 12.5 g/dL 11.1-1 5.9 Not Available [facility] ([facility]) [address] [facility], [place], [address], 02/13/2023 06:11:29 02/13/2002/12/2023 CBC WITH DIFFE RENTI AL/PL ATELE T hematocrit 37.5 % 34.0-4 6.6 Not Available [facility] ([facility]) [address] [facility], [place], [address], 02/13/2023 06:11:29 02/13/2002/12/2023 CBC WITH DIFFE RENTI AL/PL ATELE T MCV 92 fL 79-97 Not Available [facility] ([facility]) [address] [place], [address], 02/13/2023 06:11:29 02/13/2002/12/2023 CBC WITH DIFFE RENTI AL/PL ATELE T MCH 30.7 pg 26.6-3 3.0 Not Available [facility] ([facility]) [address] [place], [address], 02/13/2023 06:11:29 02/13/20 23 02/12/2023 CBC WITH DIFFE RENTI AL/PL ATELE T MCHC 33.3 g/dL 31.5-3 5.7 Not Available [facility] ([facility]) [address] [facility], [place], [address], 02/13/2023 06:11:29 02/13/2002/12/2023 CBC WITH DIFFE RENTI AL/PL ATELE T RDW 12.5 % 11.7-1 5.4 Not Available [facility] ([facility]) [address] [facility], [place], [address], 02/13/2023 06:11:29 02/13/2002/12/2023 CBC WITH DIFFE RENTI AL/PL ATELE T platelets 144 x10e3 /uL 150-45 0 below low normal Not Available [facility] ([facility]) [address] [facility], [place], [address], 02/13/2023 06:11:29 02/13/2002/12/2023 CBC WITH DIFFE RENTI AL/PL ATELE T neutrophils 62 % not estab. Not Available [facility] ([facility]) [address] [facility], [place], [address], 02/13/2023 06:11:29 02/13/2002/12/2023 CBC WITH DIFFE RENTI AL/PL ATELE T lymphs 29 % not estab. Not Available [facility] ([facility]) [address] [facility], [place], [address], 02/13/2023 06:11:29 02/13/2002/12/2023 CBC WITH DIFFE RENTI AL/PL ATELE T monocytes 7 % not estab. Not Available [facility] ([facility]) [address] [facility], [place], [address], 02/13/2023 06:11:29 02/13/20 23 02/12/2023 CBC WITH DIFFE RENTI AL/PL ATELE T eos 1 % not estab. Not Available [facility] ([facility]) [address] [facility], [place], [address], 02/13/2023 06:11:29 02/13/2002/12/2023 CBC WITH DIFFE RENTI AL/PL ATELE T basos 1 % not estab. Not Available [facility] ([facility]) [address] [facility], [place], [address], 02/13/2023 06:11:29 02/13/2002/12/2023 CBC WITH DIFFE RENTI AL/PL ATELE T immature cells SCREEN PRINTING PASTER Not Available [facility] ([facility]) [address] [place], [address], 02/13/2023 06:11:29 02/13/2002/12/2023 CBC WITH DIFFE RENTI AL/PL ATELE T neutrophils (absolute) 2.8 x10e3 /uL 1.4-7. 0 Not Available [facility] ([facility]) [address] [place], [address], 02/13/2023 06:11:29 02/13/20 23 02/12/2023 CBC WITH DIFFE RENTI AL/PL ATELE T lymphs (absolute) 1.3 x10e3 /uL 0.7-3. 1 Not Available [facility] ([facility]) [address] [place], [address], 02/13/2023 06:11:29 02/13/2002/12/2023 CBC WITH DIFFE RENTI AL/PL ATELE T monocytes(ab solute) 0.3 x10e3 /uL 0.1-0. 9 Not Available [facility] ([facility]) [address] [place], [address], 02/13/2023 06:11:29 02/13/2002/12/2023 CBC WITH DIFFE RENTI AL/PL ATELE T eos (absolute) 0.1 x10e3 /uL 0.0-0. 4 Not Available [facility] ([facility]) [address] [place], [address], 02/13/2023 06:11:29 02/13/20 23 02/12/2023 CBC WITH DIFFE RENTI AL/PL ATELE T baso (absolute) 0.1 x10e3 /uL 0.0-0. 2 Not Available [facility] ([facility]) [address] [facility], [place], [address], 02/13/2023 06:11:29 02/13/2002/12/2023 CBC WITH DIFFE RENTI AL/PL ATELE T immature granulocytes 0 % not estab. Not Available [facility] ([facility]) [address] [facility], [place], [address], 02/13/2023 06:11:29 02/13/2002/12/2023 CBC WITH DIFFE RENTI AL/PL ATELE T immature grans (abs) 0.0 x10e3 /uL 0.0-0. 1 Not Available [facility] ([facility]) [address] [facility], [place], [address], 02/13/2023 06:11:29 02/13/2002/12/2023 CBC WITH DIFFE RENTI AL/PL ATELE T NRBC SCREEN PRINTING PASTER Not Available [facility] ([facility]) [address] [facility], [place], [address], 02/13/2023 06:11:29 02/13/2002/12/2023 CBC WITH DIFFE RENTI AL/PL ATELE T hematology comments: SCREEN PRINTING PASTER Not Available [facility] ([facility]) [address] [facility], [place], [address], 02/13/2023 06:11:29 02/13/2002/13/2023 COMP. METAB OLIC PANEL (14) glucose 88 mg/dL 70-99 Not Available [facility] ([facility]) [address] [facility], [place], [address], 02/13/2023 06:11:30 02/13/20 23 02/13/2023 COMP. METAB OLIC PANEL (14) BUN 22 mg/dL 8-27 Not Available [facility] ([facility]) [address] [facility], [place], [address], 02/13/2023 06:11:30 02/13/20 23 02/13/2023 COMP. METAB OLIC PANEL (14) creatinine 0.64 mg/dL 0.57-1 .00 Not Available [facility] ([facility]) [address] [facility], [place], [address], 02/13/2023 06:11:30 02/13/2002/13/2023 COMP. METAB OLIC PANEL (14) eGFR 96 mL/mi n/1.7 3 >59 Not Available [facility] ([facility]) [address] [facility], [place], [address], 02/13/2023 06:11:30 02/13/20 23 02/13/2023 COMP. METAB OLIC PANEL (14) BUN/creatini ne ratio 34 12-28 above high normal Not Available [facility] ([facility]) [address] [facility], [place], [address], 02/13/2023 06:11:30 02/13/20 23 02/13/2023 COMP. METAB OLIC PANEL (14) sodium 142 mmol/ L 134-14 4 Not Available [facility] ([facility]) [address] [place], [address], 02/13/2023 06:11:30 02/13/20 23 02/13/2023 COMP. METAB OLIC PANEL (14) potassium 3.9 mmol/ L 3.5-5. 2 Not Available [facility] ([facility]) [address] [place], [address], 02/13/2023 06:11:30 02/13/20 23 02/13/2023 COMP. METAB OLIC PANEL (14) chloride 105 mmol/ L 96-106 Not Available [facility] ([facility]) [address] [facility] [place], [address], 02/13/2023 06:11:30 02/13/20 23 02/13/2023 COMP. METAB OLIC PANEL (14) carbon dioxide, total 26 mmol/ L 20-29 Not Available [facility] ([facility]) [address] [facility] [place], [address], 02/13/2023 06:11:30 02/13/20 23 02/13/2023 COMP. METAB OLIC PANEL (14) calcium 9.0 mg/dL 8.7-10 .3 Not Available [facility] ([facility]) [address] [facility] [place], [address], 02/13/2023 06:11:30 02/13/20 23 02/13/2023 COMP. METAB OLIC PANEL (14) protein, total 6.1 g/dL 6.0-8. 5 Not Available [facility] ([facility]) [address] [facility] [place], [address], 02/13/2023 06:11:30 02/13/20 23 02/13/2023 COMP. METAB OLIC PANEL (14) albumin 4.5 g/dL 3.9-4. 9 Not Available [facility] ([facility]) [address] [facility] [place], [address], 02/13/2023 06:11:30 02/13/20 23 02/13/2023 COMP. METAB OLIC PANEL (14) globulin, total 1.6 g/dL 1.5-4. 5 Not Available [facility] ([facility]) [address] [facility] [place], [address], 02/13/2023 06:11:30 02/13/20 23 02/13/2023 COMP. METAB OLIC PANEL (14) A/G ratio 2.8 1.2-2. 2 above high normal Not Available [facility] ([facility]) [address] [place], [address], 02/13/2023 06:11:30 02/13/2002/13/2023 COMP. METAB OLIC PANEL (14) bilirubin, total 0.5 mg/dL 0.0-1. 2 Not Available [facility] ([facility]) [address] [place], [address], 02/13/2023 06:11:30 02/13/20 23 02/13/2023 COMP. METAB OLIC PANEL (14) alkaline phosphatase 42 IU/L 44-121 below low normal Not Available [facility] ([facility]) [address] [facility] [place], [address], 02/13/2023 06:11:30 02/13/20 23 02/13/2023 COMP. METAB OLIC PANEL (14) AST (SGOT) 13 IU/L 0-40 Not Available [facility] ([facility]) [address] [facility] [place], [address], 02/13/2023 06:11:30 02/13/2002/13/2023 COMP. METAB OLIC PANEL (14) ALT (SGPT) 17 IU/L 0-32 Not Available [facility] ([facility]) [address] [facility] [place], [address], 02/13/2023 06:11:30 02/13/2002/13/2023 LIPID PANEL cholesterol, total 176 mg/dL 100-19 9 Not Available [facility] ([facility]) [address] [facility] [place], [address], 02/13/2023 06:11:30 02/13/2002/13/2023 LIPID PANEL triglyceride s 35 mg/dL 0-149 Not Available [facility]) [address] [facility] [place], [address], 02/13/2023 06:11:30 02/13/20 23 02/13/2023 LIPID PANEL HDL cholesterol 78 mg/dL >39 Not Available [facility]) [address] [facility], [place], [address], 02/13/2023 06:11:30 02/13/20 23 02/13/2023 LIPID PANEL VLDL cholesterol kt 8 mg/dL 5-40 Not Available [facility]) [address] [facility], [place], [address], 02/13/2023 06:11:30 02/13/2002/13/2023 LIPID PANEL LDL chol calc ([facility]) 90 mg/dL 0-99 Not Available [facility]) [address] [facility], [place], [address], 02/13/2023 06:11:30 02/13/2002/13/2023 LIPID PANEL comment: SCREEN PRINTING PASTER Not Available [facility] ([facility]) [address] [facility], [place], [address], 02/13/2023 06:11:30 04/11/20 23 04/11/2023 fecal occul t blood , stool Occult Blood negati ve Not Available [facility] [address] [place], [address], 02/23/2023 14:41:06 04/24/20 23 04/25/2023 CULTU RE, URINE , ROUTI NE culture, urine, routine SEE NOTE CULTU RE, URINE , ROUTI NE Micro Numbe r: [id number] Test Statu s: Final Speci men Sourc e: Urine Speci men Quali ty: Adequ ate Resul t: No Growt h Not Available [facility] [address] [place], [address], 04/25/2023 20:25:20 04/24/20 23 04/24/2023 urina lysis , dipst ick bilirubin negati ve negati ve normal Not Available [address], [address], 04/24/2023 13:51:29 04/24/20 23 04/24/2023 urina lysis , dipst ick blood trace- intact negati ve abnormal Not Available [address], [address], 04/24/2023 13:51:29 04/24/20 23 04/24/2023 urina lysis , dipst ick clarity clear clear normal Not Available [address], [address], 04/24/2023 13:51:29 04/24/20 23 04/24/2023 urina lysis , dipst ick color yellow yellow normal Not Available [address], [address], 04/24/2023 13:51:29 04/24/20 23 04/24/2023 urina lysis , dipst ick glucose negati ve mg/dL negati ve normal Not Available [address], [address], 04/24/2023 13:51:29 04/24/20 23 04/24/2023 urina lysis , dipst ick ketone negati ve mg/dL negati ve normal Not Available [address], [address], 04/24/2023 13:51:29 04/24/20 23 04/24/2023 urina lysis , dipst ick leukocytes small negati ve abnormal Not Available [address], [address], 04/24/2023 13:51:29 04/24/20 23 04/24/2023 urina lysis , dipst ick nitrite negati ve negati ve normal Not Available [address], [address], 04/24/2023 13:51:29 04/24/20 23 04/24/2023 urina lysis , dipst ick pH 8.5 4.99-7 .6 high Not Available [address], [address], 04/24/2023 13:51:29 04/24/20 23 04/24/2023 urina lysis , dipst ick protein negati ve mg/dL negati ve normal Not Available [address], [address], 04/24/2023 13:51:29 04/24/20 23 04/24/2023 urina lysis , dipst ick specific gravity 1.015 1.004- 1.031 normal Not Available [address], [address], 04/24/2023 13:51:29 04/24/20 23 04/24/2023 urina lysis , dipst ick urobilinogen 0.2 0-2.1 normal Not Available [address], [address], 04/24/2023 13:51:29 02/23/20 23 02/22/2023 DEXA, axial skele ton + verte bral fract ure asses sment No observ ation record ed. [facility] [address] [place], [address], 03/07/2023 11:45:32 02/28/2002/22/2023 MAMMO , scree edwina, bilat eral No observ ation record ed. [facility] [address] [facility], [place], [address], 03/07/2023 11:45:33 Result Notes None recorded. Problems Name Problem SNOMED Code Status Onset Date Resolution Date Notes Provider Name and Address Organization Details Recorded Time Depressive disorder 11438777 Active 2022 Tanesha Kendrick [place] null, [place] [facility] 3 13:10:40 Gastroesophage al reflux disease without esophagitis 523610298 Active 2022 Tanesha Kendrick [place] [facility] 3 13:11:03 Mild recurrent major depression 73857610 Active 2022 *HCC* F33.0 Olga Atwood, Medicare Risk Adj null, [place] - [facility] 3 09:37:12 Mood disorder 57390688 Active 2022 *HCC* F39 Dawn Denson, Medicare Risk Adj null, [place] - [facility] 4 13:49:13 Senile purpura 59926638 Active 2022 *HCC* D69.2 Olga Atwood, Medicare [...] 11:12:38 02/20/20 Colorectal Cancer Screening completed Queen Surinder [place] - [facility] 02/19/2023 14:25:48 02/20/20 Breast Cancer Screening completed Queen Surinder [place] [facility] 02/19/2023 14:25:48 02/20/20 Osteoporosis Management in Women with Fracture completed Queen Surinder [place] [facility] 02/19/2023 14:25:48 02/20/20 Care of Older Adults- Advance Care Planning completed Queen Surinder MA [facility] Complete [facility] 02/19/2023 14:25:48 02/20/20 Care of Older Adults- Functional Status Assessment completed Queen Surinder MA [facility] Complete [facility] 02/19/2023 14:25:48 02/20/20 Comprehensive Diabetes Care- Hemoglobin A1c completed Queen Surinder MA [facility] Complete [facility] 02/19/2023 14:25:48 02/20/20 Comprehensive Diabetes Care-Eye Exam completed Queen Surinder MA [facility] Complete [facility] 02/19/2023 14:25:48 02/20/20 Transitions of Care-Medication Reconciliation Post-Discharge completed Queen Surinder MA [facility] Complete [facility] 02/19/2023 14:25:48 01/27/20 Ear Irrigation completed KADY GASPAR, TANO [address] [place], [address], [facility] Complete [facility] 01/26/2023 14:31:03 01/27/20 Care of Older Adults- Functional Status Assessment completed Marco Moy Entry Level Accountant [facility] Complete [facility] 01/16/2023 10:12:29 Appendectomy completed Tanesha Kendrick MA [facility] Complete [facility] 01/26/2023 13:14:35 excision of bunion completed Tanesha Kendrick MA [facility] Complete [facility] 01/26/2023 13:14:48 tonsillectomy completed Tanesha Kendrick MA [facility] 01/26/2023 13:14:56 Colonoscopy completed Queen Surinder MA [facility] Complete [facility] 02/19/2023 14:25:27 Other completed Queen Surinder MA [facility] Complete [facility] 02/19/2023 14:25:27 Tonsillectomy completed Queen Surinder MA [facility] Complete [facility] 02/19/2023 14:25:27 Imaging Results Imaging Date Name Status LastModified by [facility] Details LastModified Time 02/22/2023 DEXA, axial skeleton + vertebral fracture assessment completed [place] [id number] [facility] [address] [facility], [place], [address], 03/07/2023 11:45:32 02/22/2023 MAMMO, screening, bilateral completed [place] [id number] [facility] [address] [place], [address], 03/07/2023 11:45:33 Procedure Notes None recorded. Medical [...] Updated DateTime 3 162.56 cm 21.5 kg/m2 26288.0 5 g 65 /min 16 /min 99 % 99 % 98 [degF] 94 mm[Hg] 58 mm[Hg] Devang Madrid MD [address] [place] [address], [address], [place] - [facility] 3 14:57:02 Date Recorded Body height Body mass index (BMI) Body weight Respiratory rate Pain severity - 0-10 verbal numeric rating [Score] - Reported Body temperature Oxygen saturation Oxygen saturation in Arterial blood by Pulse oximetry Heart rate Systolic blood pressure Diastolic blood pressure Provider Name and Address Organization Details Last Updated DateTime 3 162.56 cm 21.2 kg/m2 37779.9 6 g 16 /min 0 99.6 [degF] 98 % 98 % 63 /min 96 mm[Hg] 70 mm[Hg] Bushra Khan MA-Engineering Test Specialist [facility] 3 14:52:01 Date Recorded Body height Body weight Body mass index (BMI) Pain severity - 0-10 verbal numeric rating [Score] - Reported Body temperature Heart rate Respiratory rate Oxygen saturation Oxygen saturation in Arterial blood by Pulse oximetry Systolic blood pressure Diastolic blood pressure Provider Name and Address Organization Details Last Updated DateTime 3 162.56 cm 42026.8 6 g 21.1 kg/m2 0 98 [degF] 71 /min 16 /min 100 % 100 % 110 mm[Hg] 60 mm[Hg] Pattie Suarez CMA [facility] 3 13:30:53 Social History Question Answer Notes LastModified by Organizat ion Details LastModified Time Tobacco Smoking Status Former Smoker Tanesha Kendrick MA [facility], [facility] 01/26/2023 13:13:53 What Is Your Level Of [...] N Blood Diseases N Breast Cancer N COPD N Depression Y Diverticulitis/Diverticulosis N Anxiety Disorder N Obesity N Arthritis N Mental Disorder N Cancer N Stroke N Bladder or Kidney Problems N High Cholesterol N Liver Disease N Fibromyalgia N Headaches N Kidney Disease N Allergies/Hayfever N Hospitalizations [...] SNOMED-CT Code Diagnosis ICD10 Code Diagnosis Note [id number] Zoey Thibodeaux MD [place] [address] [place] [address] 01/26/2023 12:36:20 01/26/2023 14:41:23 Body mass index 20-24 - normal 021477996 Z68.22 22.2 Screening for malignant neoplasm of breast 299856885 Z12.39 Screening for osteoporosis 055840053 Z13.820 Increased frequency of urination 399937562 R35.0 kegal exercisesd iscussed medication such as oxybutynin / slingmonit or Screening for malignant neoplasm of colon 496388904 Z12.[address] Pennie Martell in [facility].state s normal but supposed to f/u in 1 year r/t other GI issues History of eating disorder 6748490180 11493 Z86.59 psych referral Bipolar disorder 6426353 4 F31.9 was on multiple meds but was able to wean off meds Mild recur rent major depression 96142233 F33.0 had started lexapro last year, states working wellmonito r Gastroesop hageal reflux disease 709192581 K21.9 omeprazole monitor Bunion 821869197 M21.61 9 bilat great toesgangli on cyst to medial right great toe Ganglion cyst 99913494 M 67.471 podiatry referral Purpura 169612209 D69.2 enc good skin care, reduce sun exposuremo nitor Elevated blood-pressure reading without diagnosis of hypertension 650746799 R03.0 bp 130/80 Impacted c erumen in left ear 2736954445 552251 H61.22 ear flush today Influenza vaccination declined 570043811 Z28.21 monitor [id number] KADY GASPAR NP [address] [place] [address] 02/19/2023 14:23:40 02/19/2023 14:55:42 Depressive disorder 12136610 F32.A taking escitalopr ammonitor Gastroesop hageal reflux disease without esophagitis 698223126 K21.9 taking omeprazole monitor Abdominal pain 52597526 R10.9 Conservati ve management at this time.This includes:r est eating a bland diet and avoiding alcohol until symptoms subside.BR AT diet instructio ns givenuse zofran and bentyl prnf/u with pcp if symptoms do not resolve for further evaluation [id number] Devang Madrid MD [address] [address] 02/23/2023 14:22:49 02/23/2023 15:21:42 Body mass index 20-24 - normal 077062201 Z68.21 Recurrent major depression 88244687 F33.9 lexapro daily and to wean as discussedc ont to followstre ss reduction Anxiety state 345197718 F41.1 cont lexapro dailycont to followstre ss reduction Mood disorder 95162528 F 39 cont lexapro dailycont to followstre ss reduction Gastroesop hageal reflux disease without esophagitis 184001144 K21.9 diet, weight lossppi prn. to wean as directed if ableegd done 2021 Senile osteoporosis 1804 0001 M81.0 bmd done 09/2022vit d and resistance activity as directedsc ript meds declined. Screening mammography 24 726218 Z12.31 mammo done yesterday Screening for malignant neoplasm of colon 594995813 Z12.11 cscope done heck ifob Bunion 366636780 M21.61 9 bilat R>Lto see podiatry when ready.cons ervative care. Senile purpura 02159368 D69.2 meds and supplement s reviewed. sun avoidance and moisturize [id number] Devang Madrid MD [address] [address] 03/28/2023 14:33:29 03/28/2023 15:10:31 Body mass index 20-24 - normal 526791351 Z68.21 21.2 Gastroesop hageal reflux disease without esophagitis 850700466 K21.9 diet, weight lossppi prn. to wean as directed if ableegd done 2021 Recurrent major depression 24094300 F33.9 doing well.lexap ro daily and to wean as discussedc ont to followstre ss reduction Anxiety state 379161153 F41.1 doing well and to wean lexapro as directedco nt to followstre ss reduction Mood disorder 54906823 F 39 doing well and to wean lexapro as directedco nt to followstre ss reduction Senile osteoporosis 1804 0001 M81.0 bmd done 09/2022vit d and resistance activity as directedsc ript meds declined. Screening mammography 24 820521 Z12.31 mammo utd 2022. Screening for malignant neoplasm of colon 332214496 Z12.11 cscope done heck ifob Bunion 587881636 M21.61 9 bilat R>Lto see podiatry when ready.cons ervative care. Senile purpura 53286198 D69.2 meds and supplement s reviewed. sun avoidance and moisturize . Visual disturbance 98503 001 H53.9 ophtho following and referred to local ophtho today [id number] KADY GASPAR NP [address] [place] [address] 04/24/2023 12:48:10 04/24/2023 14:25:05 Body mass index 20-24 - normal 413520466 Z68.21 Contact dermatitis 83022 004 L25.9 states hydrocorti sone cream helpsmay use moisturizi ng ointmentmo nitor Increased frequency of urination 312632804 R35.0 Increase fluid intake (water/ t cranberry juice)Wipe from front to backKegel exercisesG ood handwashin gWear cotton under-garm ents Urinary tr act infectious disease 15573914 N39.0 would like to wait until culture results are completed until starting antibiotic Gastroesop hageal reflux disease without esophagitis 934911418 K21.9 taking omeprazole monitor [id number] Rebekah Porter, CCM, WEIGHT TRAINER [facility] [address] [address] 04/25/2023 14:21:30 07/05/2023 12:28:35 Acute urinary tract infection 849261288 N39.0 [id number] Rebekah Porter, [facility], WEIGHT TRAINER [facility] [address] [place] [address] 04/27/2023 10:39:35 07/05/2023 13:28:01 Acute urinary tract infection 715879038 N39.0 Health Concerns Section Related Observation LastModified by Organization Detai ls LastModified Time None Recorded Concern Status LastModified by Organization Details LastModified Time None Recorded Advance Directives Directive None Recorded Payers Encounter Date Sequence Insurance Name Policy Number Policy Perez Covered Member ID Perez Member ID Guarantor Name 02/23/2023 1 [employer] (MEDICARE REPLACEMENT HMO) Kori Barron [id number] Kori Anderson 03/28/2023 1 [employer] (MEDICARE REPLACEMENT HMO) Kori Barron [id number] Kori Anderson 04/24/2023 1 [employer] (MEDICARE REPLACEMENT HMO) Kori Barron [id number] Kori Anderson 04/25/2023 1 [employer] (MEDICARE REPLACEMENT HMO) Kori Barron [id number] Kori Anderson 04/27/2023 1 [employer] (MEDICARE REPLACEMENT HMO) Kori Barron [id number] Kori Barron Notes Date Note Type Note Provider Name and Address Organization Details Recorded Time 02/23/2023 text/html new to establish with me Devang Madrid MD [address] [place] [address], [phone], [facility] 02/23/2023 15:28:12 03/28/2023 text/html test f/u and as below Devang Madrid MD [address] [place] [address], [phone], [facility] 03/28/2023 15:15:33 04/24/2023 text/html rash on wrists KADY GASPAR NP [address] [place] [address], [phone], [facility] 04/24/2023 14:16:23 04/25/2023 text/html Online Project Manager Sensitive Condition 24 hr Follow-UpReported bypatient.With whom [...] in call Rebekah Porter CCM, LPN null ID [employer] 04/25/2023 15:02:14 04/27/2023 text/html Online Project Manager Sensitive Condition 72 hr Follow-UpReported bypatient.With whom [...] check in call Rebekah Porter CCM, LPN Supersolid [employer] 04/27/2023 10:57:46 OBGyn Episode No OBEpisode recorded.
--- OUTSIDE RECORDS SUMMARY | 2024-07-02 15:58 | XMS_ITS ---
Author Organization [facility] Address [address] [place] [address] Care Team Providers Care Foundation Maker Name Role Phone Mariaa CLIFTON, Donna Kevin Primary Care Provider Un available Black, Erica Unavailable [phone] Elizabeth, Becky Unavailable [phone] Allergies Allergen (clinical drug ingredient) Drug/Non Drug [...] 025 Encounters Encounter Location Date Provider Diagnosis [facility] [address] [place] [address] 06/11/2024 Becky Johnson Pain in left foot [...] * Kori BARRON LDOB:1955 (68 yo F)Acc No.[id number]:06/11/2024 Progress Note Patient:?Kori BARRON Provider:?Becky Johnson DPM :1955???Age:68 Y???Sex:Female D ate:06/11/2024 Address:[address] [place] [address] Suzanna black, [phone] Pcp:Amena Ramos Subjective: * Chief Complaints: * [...] no. ?Children: yes, 2. ?Exercise: yes, playing Graematterr, bones and balance classes, bike riding, reading. ?Marital status: . 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 * Medications:?TakingEscitalop lynne Oxalate 5 MG [...] Foot, AP, LAT, MO, B/LTaken by trainedPodiatric Superintendent Transportation (SF )Are reviewed with the Pt, .?Findings:?normal [...] would refer pt to Dr Wright at [facility] for surgery consult and planning, the significant [...] Provider:?Becky Johnson DPM Date:?03/2025 Generated for Krysten kowalski/Bianca/Mayito on:?07/02/2024 03:57 PM EST History and Physical [...] LAT, MO, B/L Taken by trained Podiatric Superintendent Transportation ( SF )Are reviewed with the Pt, Clinical Indication(s): Evaluate Biomech anical Deformity
--- OUTSIDE RECORDS SUMMARY | 2024-07-02 15:58 | XMS_ITS | Encounter Summary ---
Author Organization [facility] Address [address] [place] [address] Care Team Providers Care City Planning Aide Name Role Phone Kira Vargas MD Primary Care Provider [phone] Encounter Details Date Type Department Care Team (Late st Contact Info) Description 02/10/2021 Transcribe Orders [facility] Pharmacy Department [address] [place] [address] Susanna Schumacher PharmD Social History Tobacco Use [...] on filedocumented in this encounter Care Teams City Planning Aide Relationship Specialty Start Date End Date Kira Vargas MD [address] [place] [phone] PCP - General Family Medicine 07/20/17 02/18/24 documented as of this encounter
--- OUTSIDE RECORDS SUMMARY | 2024-07-02 15:58 | XMS_ITS | Encounter Summary ---
Author Organization [facility] Address [address] [place] [address] Care Team Providers Care Sales Promoter Name Role Phone Kira Vargas MD Primary Care Provider [phone] Reason for Visit * Reason Onset Date Comments Reschedule 04/25/2021 Encounter Details Date Type Department Care Team ([facility] st Contact Info) Description 04/25/2021 Telephone [facility] Central Scheduling Department [address] [place] [address] Telephone Intake, Staff Reschedule Social History Tobacco [...] on filedocumented in this encounter Care Teams Sales Promoter Relationship Specialty Start Date End Date Kira Vargas MD [address] [place] [address] PCP - General Family Medicine 07/20/17 02/18/24 documented as of this encounter
--- OUTSIDE RECORDS SUMMARY | 2024-07-02 15:59 | XMS_ITS | Patient Health Record ---
Author Organization [facility] Address [address] [place] [address] Care Team Providers Care Environmental Planning Engineer Name Role Phone Mariaa CLIFTON, Donna Kevin Primary Care Provider Un available Erica Iglesias Unavailable [phone] Becky Johnson Unavailable [phone] Allergies Allergen (clinical drug ingredient) Drug/Non Drug [...] Provider Speciality Internal M edicine [facility] Referred Provider Erica Iglesias Referred Address [address] ,[place], [place],[address], Referred Provider Specialty Podiatry Referral Priority Routine [...] Provider Speciality Internal M edicine [facility] Referred Provider Becky Johnson Referred Address [address] [place], [place],[address], Referred Provider Specialty Podiatry Referral Priority Routine [...] Status Risk Notes Problem Acquired hallux valgus (43956187) Hallux valgus (acquired), left foot (M20.12) Active confirmed Problem Acquired hallux valgus (25915187) Hallux valgus (acquired), right foot (M20.11) Active confirmed Problem 370726865 Hammertoe of left foot (M20.42) Active confirmed Problem 352782120 Hammertoe of right foot (M20.41) Active confirmed Vital Signs Blood pressure diastolic 70 mm Hg 06/11/2024 Height 5ft4in in 06/11/2024 Blood pressure systolic 120 mm Hg 06/11/2024 Weight 127 lbs 06/11/2024 BMI 21.8 kg/m2 06/11/2024 Encounters Encounter Location Date Provider Diagnosis [facility] [address] [place] [address] 03/31/2024 Erica Black Pain in left foot [...] M20.41 and Hammertoe of left foot M20.[address] [address] 05/29/2024 Erica Black Pain in left foot [...] M20.41 and Hammertoe of left foot M20.[address] [address] 06/11/2024 Becky Gardnera Pain in left foot [...] Hammertoe of left foot M20.42 [facility] [address] [address] 05/29/2024 Ericamarti Iglesias [facility] [address] [address] 12/20/2023 Ericabob Iglesias [facility] [address] [address] 04/14/2024 Erica Iglesias Assessments Encounter Date Diagnosis [...] Insured Coverage Start Date Coverage End Date [facility] [id number] MEENA Luciano [phone] [id number] Kori Barron Self - patient is the insured Medical (General) History Medical History History ICD Code Anxiety covid-19 Depression Osteoporosis Reflux ( GERD) Measles Chicken pox Mumps Surgical History Surgery Date(Month/Year) appendectomy 1969 tonsillectomy 1959 bunionectomy 1989
== END 2024-07-02 14:14 | disposition home or self-care (01) ==
PROVIDERS: PCP Internal Medicine; Visit Provider Internal Medicine
DX: Z13.1 Encounter for screening for diabetes mellitus (principal); Z13.220 Encounter for screening for lipoid disorders

== ENCOUNTER → 2024-07-02 13:22 | Outpatient (BNVA) | payer OTHER, SELFPAY | PROVIDERS: PCP Internal Medicine; Visit Provider Internal Medicine | DX: R63.8 Other symptoms and signs concerning food and fluid intake (principal); F41.9 Anxiety disorder, unspecified; F32.9 Major depressive disorder, single episode, unspecified; M81.0 Age-related osteoporosis without current pathological fracture | CPT/HCPCS: 96127 ==

== ENCOUNTER 2024-07-04 07:18 | Outpatient (REF) | payer OTHER, SELFPAY ==
[2024-07-04 10:26] LABS: Estimated Average Glucose 103 mg/dL; Hemoglobin A1c % 5.2 % (<6.0); Total Hemoglobin (HGBA1C) 3361.1262 umol/L
[2024-07-04 10:50] LABS: Alanine Aminotransferase 31 U/L (0-31); Aspartate Amino Transferase 22 U/L (5-31); Cholesterol 212 mg/dL (<200); Glucose Fasting 85 mg/dL (60-99); HDL Cholesterol 83 mg/dL (>40); LDL Cholesterol Calculated 120 mg/dL (<100); Triglycerides 48 mg/dL (<150)
== END 2024-07-04 07:19 | disposition home or self-care (01) ==
LOC: HO.HMGCLDS 07:18
PROVIDERS: PCP Internal Medicine; Visit Provider Internal Medicine
DX: Z13.1 Encounter for screening for diabetes mellitus (principal); Z13.220 Encounter for screening for lipoid disorders; Z13.6 Encounter for screening for cardiovascular disorders
CPT/HCPCS: 36415; 80061; 82947; 83036; 84450; 84460

== ENCOUNTER 2024-10-21 08:11 | Outpatient (AMB) | payer OTHER, SELFPAY ==
[2024-10-21 08:17] VITALS: BP 90/52; PULSE 76; TEMP 36.8; O2SAT 98; BMI 20.5
--- NOTE | 2024-10-21 08:17 | MHC.OFFWIV ---
Intake Vital Signs 10/21/24 08:17 10/21/24 09:18 Height 5 ft 4 in Weight 119 lb 6 oz BMI 20.5 BP 90/52 L 124/72 Blood Pressure Location Rt brachial Position Sitting Pulse 76 Pulse Source Pulse Oximeter Temp 98.3 F Temp Source Oral Pulse Oximetry (%) 98 Oxygen Delivery Method Room Air Intake Visit Reasons: EP-lt ear dark spot & stomach issues Patient Tobacco Use Status: Former Tobacco user Allergies No Known Allergies Allergy (Verified 10/21/24 08:37) HPI HPI Comments History of Present Illness Details History of Present Illness - The patient is a 68-year-old female presenting with a few complaints. - Her first is an issue on her left earlobe. - The laceration and bruise appeared three to four days ago without any known trauma. - The patient is not on any blood thinners. - she is also unclear if she had any tick exposures recently. She does report [place] was at a farm about a [place] and her siblings each had 3-4 ticks on them but she did not find any on herself. She has been complaining of fatigue and abdominal pain since then. She has tried taking omeprazole but that did not resolve her abdominal pain/lack of appetite. She denies any fevers, joint pain or night sweats. - The patient reports low blood pressure, recorded at 90/52 mmHg, and has experienced a lack of appetite and general malaise for the past few weeks. - The patient has a history of grief due to multiple family losses, which may be contributing to her symptoms. She does see a therapist twice a week and she goes to a grief support group once a week. - The patient maintains a healthy lifestyle, including regular biking and a balanced diet, but reports feeling fatigued and having difficulty eating. - she does admit to a remote history of anemia but denies any recent issues or active bleeding Physical Exam General: Cooperative, healthy appearing, comfortable, no acute distress and well developed Orientation: Patient oriented x3 Limitations: No limitations Head: Normal to inspection Ears: Left ear with a small healing laceration and small area of ecchymosis on the pinna, no signs of infection noted Nose: Normal External nose present Face and sinus: Normal facial exam Eyes: Appearance normal, both eyes and all related structures Neck: Normal visual inspection and Yes full ROM Respiratory: Normal respiratory effort and able to speak in complete sentences. Skin: No rashes or lesions noted Neuro: Patient oriented x3 Extremities: Normal to inspection [facility] Medical History (Updated 10/21/24 @ 09:16 by Sendy Uribe PA-C) Screening for diabetes mellitus Leukopenia Bilateral hearing loss Osteoporosis Bilateral bunions Anxiety and depression Surgical History History of bunionectomy of both great toes History of tonsillectomy History of tubal ligation History of appendectomy Family History Mother Acute myocardial infarction Alcoholism Father Atrial fibrillation TIA (transient ischemic attack) Alcoholism Brother Alcoholism Acute myocardial infarction Sister Alcoholism Social History [facility] Alcohol intake: former Year quit: Used Comment: Used to drink cocktails, quit 35 years Patient Tobacco Use Status: Former Tobacco user Years Smoked: 8 years , quit 35 years ago e-Cigarette/Vaping Use: Never Used Substance Use Type: Marijuana service: No Current occupational status: retired Cognitive needs: No Hearing needs: No Vision needs: Yes Review of Systems Const All systems reviewed & are unremarkable except as noted in HPI and below Physical Exam Vital Signs: Last Vital Signs Temp 98.3 F 10/21/24 08:17 Pulse 76 10/21/24 08:17 BP 90/52 L 10/21/24 08:17 Pulse Ox 98 10/21/24 08:17 Oxygen Delivery Method Room Air 10/21/24 08:17 BMI result Body Mass Index 20.5 Assessment & Plan Assessment & Plan (1) Fatigue: Code(s): R53.83 - Other fatigue Qualifiers: Fatigue type: unspecified Qualified Code(s): R53.83 - Other fatigue Plan: Plan - Monitor the laceration and bruise on the left ear for healing; apply a healing ointment such as Aquaphor to keep the area moist. - Conduct a Lyme and tick panel to rule out tick-borne illnesses due to recent exposure to a farm environment. - Conduct a complete blood count/CBC to assess for anemia or other hematological issues. - Encourage increased fluid intake to address potential dehydration, especially in hot weather. Although repeat blood pressure was 124/72. - Follow up with primary care physician for further evaluation if symptoms persist despite normal lab results. Could be a manifestation of her grief. Patient was informed and verbally consented to the use of an ambient scribe for clinic note documentation during this visit. (2) Abrasion of ear: Code(s): S00.419A - Abrasion of unspecified ear, initial encounter Qualifiers: Encounter type: initial encounter Laterality: left Qualified Code(s): S00.412A - Abrasion of left ear, initial encounter Plan: see above Orders: Orders Lyme IgG/IgM w/reflex to WB Today R53.83 - Other fatigue Tick-borne Disease Molecular Today R53.83 - Other fatigue Complete Blood Count Auto Diff Today R53.83 - Other fatigue Coding Level of Care Code Est Pt Level 4 (70262) Diagnoses Fatigue, unspecified type R53.83 Fatigue type: unspecified Abrasion of left ear, initial encounter S00.412A Encounter type: initial encounter Laterality: left
--- OUTSIDE RECORDS SUMMARY | 2024-10-21 08:17 | XMS_ITS | Clinical Summary ---
Author Organization [employer] Address [address] [facility] [place] [address] Care Team Providers Care Health And Safety Manager Name Role Phone Seth Louie MD Primary [...] intervention , Patient to reach out to [facility] team as needed, and Patient to engage in OP therapy Assessment & Plan (07/11/2023 11:09 PM EDT): Patient on escitalopram 10mg, no suicidal/homicidal ideas, will refer to therapist Family History Medical History Relation Name Comments [...] 59 07/11/2023 2:25 PM EDT Temperature 37.1 C (98.7 F) 07/11/2023 2:25 PM EDT Respiratory Rate 16 07/11/2023 2:25 PM EDT [...] COVID-19 Vaccine ( - 2023- season) 2023 Depression Monitoring 02/19/2024 08/20/2023, 024 Tobacco Screening 07/18/2024 07/19/2023 Influenza Vaccine (Season Ended) 2024 RSV Patients and Patients Aged 60 years [...] patient's age to complete this topic Meningococcal B Vaccine Aged Out No l onger eligible based on patient's age to complete this topic Meningococcal Vaccine Aged Out No ronan kady eligible based on patient's age to complete this topic RSV under 20 months Aged Out No longe r eligible based on patient's age to complete this topic Rotavirus Vaccines Aged Out No longer eligible based on patient's age to complete this topic Insurance N FULL [employer] Care Teams Health And Safety Manager Relationship Specialty Start Date End Date Seth Louie MD [address] [place] [id number] PCP - General Internal Medicine 07/19/23
[2024-10-21 09:18] VITALS: BP 124/72
== END 2024-10-21 09:19 | disposition home or self-care (01) ==
PROVIDERS: PCP Internal Medicine; Visit Provider Physician Assistant
DX: R53.83 Other fatigue (principal); S00.412A Abrasion of left ear, initial encounter

== ENCOUNTER 2024-10-21 08:11 | Outpatient (REF) | payer OTHER, SELFPAY ==
[2024-10-21 10:06] LABS: MANUAL DIFF FLAG NO
[2024-10-21 10:08] LABS: Basophils Absolute Auto 0.1 X10*3/uL (0.0-0.2); Basophils Percent Auto 1.5 % (0-2); Eosinophils Absolute Auto 0.1 X10*3/uL (0.0-0.4); Eosinophils Percent Auto 1.9 % (0-4); Hematocrit 40.4 % (37.0-47.0); Hemoglobin 13.7 g/dl (12.0-16.0); Imm Gran Abs Auto 0.02 X10*3/uL (0.00-0.03); Imm Gran Pct Auto 0.4 % (0.0-0.4); Lymphocytes Absolute Auto 1.7 X10*3/uL (1.2-4.9); Lymphocytes Percent Auto 31.2 % (20-40); Mean Corpuscular HGB Conc 33.9 g/dl (31.0-35.0); Mean Corpuscular Hemoglobin 30.2 pg (27.0-33.0); Mean Platelet Volume 10.7 fL (9.4-12.3); Monocytes Absolute Auto 0.4 X10*3/uL (0.1-1.2); Monocytes Percent Auto 7.5 % (2-11); Neutrophils Absolute Auto 3.1 x10*3/uL (2.0-8.3); Neutrophils Percent Auto 57.5 % (45-73); Platelet Count 175 X10*3/uL (160-400); Red Blood Count 4.54 X10*6/uL (4.20-5.50); Red Cell Distribution Width 12.2 % (11.0-16.0); White Blood Count 5.3 X10*3/uL (4.8-10.8)
[2024-10-22 06:49] LABS: Lyme Abs Screen <0.90 index
[2024-10-23 02:53] LABS: A. Phagocytphilium DNA,RT-PCR NOT DETECTED (NOT DETECTED); Babesia Microti DNA, RT-PCR NOT DETECTED (NOT DETECTED); Borrelia Miyamotoi,DNA RT-PCR NOT DETECTED (NOT DETECTED); E.Chaffeensis DNA RT-PCR NOT DETECTED (NOT DETECTED); Lyme(Borrelia ssp)DNA RT-PCR NOT DETECTED (NOT DETECTED)
== END 2024-10-21 08:12 | disposition home or self-care (01) ==
LOC: HO.HMGCLDS 08:11
PROVIDERS: PCP Internal Medicine; Visit Provider Physician Assistant
DX: S00.412A Abrasion of left ear, initial encounter (principal); R53.83 Other fatigue; X58.XXXA Exposure to other specified factors, initial encounter; Y93.9 Activity, unspecified; Y92.79 Other farm location as the place of occurrence of the external cause; Y99.9 Unspecified external cause status
CPT/HCPCS: 36415; 85025; 86617; 86618; 87468; 87469; 87478; 87484; 87798

== ENCOUNTER 2024-11-07 08:21 | Outpatient (AMB) | payer OTHER, SELFPAY ==
--- OUTSIDE RECORDS SUMMARY | 2024-08-07 10:00 | XMS_ITS ---
Author Organization [facility] Address [address] [place] [address] Care Team Providers Care Steam Conditioning Operator Name Role Phone Mariaa CLIFTON, Donna Kevin Primary Care Provider Un available Harris Erica Gracia [phone] Encounters Encounter Location Date Provider Diagnosis [address] [address] 08/07/2024 Erica Harris Plan Of Treatment Next Appt Details Provider Name:Erica Iglesias , 11/21/2024 09:15:00 AM, [address] [facility], [place], [address], Progress Notes * Kori BARRON LDOB:1955 (68 yo F)Acc No.[id number]:08/07/2024 Progress Note Patient: Gita Kori MILLS Provider: Paula Iglesias DPM :1955 A ge:68 Y S ex:Female Date:08/07/2024 Address:[address] [place] [address] Pcp:Amena Ramos Subjective: * Chief Complaints: * * Medical History: Objective: * Vitals: Assessment: Plan: * Treatment: * Images: * The named appointment provid er may or may not be the originator of this progress note, and it is not deemed complete until electronically signed by the appointment provider. Sign off status: Pending * Provider: Paula Iglesias DPM Date: 0 08/07/2024 Generated for Krysten Graham/Mayito on: 0 11/07/2024 08:25 AM EDT
--- NOTE | 2024-11-07 08:17 | MHC.PC.OV ---
Intake Visit Reasons: discuss nausea & no appetite Iphone Intake Note: Pt is having a telehealth visit to discuss nausea and has no appetite Allergies No Known Allergies Allergy (Verified 11/07/24 08:49) Medication List - Last Reconciled 11/07/24 by Donna Leroy MD No Known Home Meds Tobacco use date assessed: 11/07/24 Fall risk assessment: No Falls in past year Last assessed Fall Risk: 11/07/24 Dental Screening Dental Screen Date: 11/07/24 Did you have a dental visit in the last 12 months?: Yes Did you have a dental problem in the last 6 months where you did not have access to dental care?: Yes Was dental information given to patient?: Patient has dentist HPI discuss nausea & no appetite Iphone HPI Details - The patient is a 68-year-old female presenting with persistent nausea and excessive gas which started 2 months ago - The nausea has been ongoing for a couple of months without a clear inciting event. - The patient reports excessive gas, which provides relief once passed - There is no associated diarrhea or change in bowel movements. - The patient has a history of hemorrhoids , no polyps identified during a colonoscopy in 2021. - The patient has not been taking any medications, including omeprazole, which was previously prescribed. - Dietary changes were made based on a cash management clerk's advice, which included increased dairy intake, potentially contributing to symptoms. - The patient has not yet tried a gluten-free diet but is considering it after testing for celiac disease. - The patient has a sty and is advised to use warm compresses for relief. [facility] Medical History Screening for diabetes mellitus Leukopenia Bilateral hearing loss Osteoporosis Bilateral bunions Anxiety and depression Surgical History History of bunionectomy of both great toes History of tonsillectomy History of tubal ligation History of appendectomy Family History Mother Acute myocardial infarction Alcoholism Substance use disorder Mental health disorder Father Atrial fibrillation TIA (transient ischemic attack) Alcoholism Substance use disorder Mental health disorder Brother Alcoholism Acute myocardial infarction Mental health disorder Sister Alcoholism Substance use disorder Mental health disorder Brother Substance use disorder Mental health disorder Social History Housing: Condominium Alcohol intake: former Year quit: Used Comment: Used to drink cocktails, quit 35 years Patient Tobacco Use Status: Former Tobacco user Years Smoked: 8 years , quit 35 years ago e-Cigarette/Vaping Use: Never Used Substance Use Type: Marijuana service: No Current occupational status: retired Cognitive needs: No Hearing needs: No Vision needs: Yes Questionnaire Thrive Questionnaire Date Thrive assessed: 06/25/24 I am a: Patient What is your living situation today?: I have a steady place to live Within the past 12 months, did the food you bought not last and you didn't have the money to get more?: Never true Within the past 12 months, did you worry whether your food would run out before you got money to buy more?: Never true Do you have trouble paying for medicines?: No Do you have trouble getting transportation to medical appointments?: No Do you have trouble paying your heating and electricity bill?: No Do you have trouble taking care of your child, family member or friend?: No Do you have trouble with day-to-day activities such as bathing, preparing meals, shopping, managing finances, etc.?: No Are you currently unemployed and looking for a job?: No Are you interested in more education?: No Please select the resources that you would like help with: None THRIVE Score: 0 MARIA ANTONIA-7 AMB Questionnaire MARIA ANTONIA-7 Date MARIA ANTONIA - 7 assessed: 10/29/23 Source: Developed by Drs. Lamine Fong, Cecily Minor, Jerome Torre and colleagues, with an educational eva from [employer]. Review of Systems Const All systems reviewed & are unremarkable except as noted in HPI and below Physical exam (Primary Care) Tobacco/Smoking Status: Tobacco use Status Tobacco use date assessed 11/07/24 11/07/24 08:20 Patient Tobacco Use Status Former Tobacco user 11/07/24 08:20 e-Cigarette/Vaping Use Never Used 11/07/24 08:20 Thrive Assessment: Date of Thrive Assessment Date Thrive assessed 06/25/24 11/07/24 08:20 Telehealth Telehealth Telehealth [facility]: [facility] Location of provider rendering services: practice address Location of patient: address on file Patient Identification confirmed using: Name, : Yes Telehealth method: video Patient verbally consented to treatment: Yes Patient verbally consented to billing insurance company: Yes Patient informed of any privacy concerns related to visit: Yes Minutes spent on Phone/Video with Pt.: 20 Coding Level of Care Code Tele Est Pt Level 4 (10589) Diagnoses Sensation of gaseous abdominal fullness R14.0 Abdominal gas pain R14.1 Hordeolum externum of left lower eyelid H00.015 Laterality: left Eyelid: lower Assessment & Plan Assessment & Plan (1) Sensation of gaseous abdominal fullness: Code(s): R14.0 - Abdominal distension (gaseous) (2) Abdominal gas pain: Code(s): R14.1 - Gas pain (3) External hordeolum: Code(s): H00.019 - Hordeolum externum unspecified eye, unspecified eyelid Qualifiers: Laterality: left Eyelid: lower Qualified Code(s): H00.015 - Hordeolum externum left lower eyelid Plan The patient will undergo a celiac disease panel to assess for potential gluten intolerance. It is advised not to alter her diet until the lab work is completed, ensuring accurate test results. An upper gastrointestinal series is ordered to evaluate for any irritation or ulceration in the stomach lining, which may be contributing to her symptoms. The patient is advised to eliminate dairy from her diet as it may be exacerbating her symptoms of gas and nausea. A prescription for dicyclomine is provided to help regulate gastrointestinal motility, which may alleviate symptoms associated with irritable bowel syndrome. The patient is instructed to use warm compresses for the sty and to follow up after the upper GI series or sooner if symptoms do not improve. Patient was informed and verbally consented to the use of an ambient scribe for clinic note documentation during this visit. Orders: Orders [place] upper GI series Today R11.0 - Nausea, R14.1 - Gas pain Celiac Disease Panel Today R11.0 - Nausea, R14.0 - Abdominal distension (gaseous) Medications: New dicyclomine Take it 15 minutes before meals 10 mg PO TID 90 caps 0RF
--- OUTSIDE RECORDS SUMMARY | 2024-11-07 08:25 | XMS_ITS | Clinical Summary ---
Author Organization [employer] Address [address] [place] [address] Care Team Providers Care General Medical Practitioner Name Role Phone Seth Louie MD Primary [...] intervention , Patient to reach out to [facility] team as needed, and Patient to engage [...] 024 Tobacco Screening 07/18/2024 07/19/2023 Influenza Vaccine (#1) 2024 RSV Patients and Patients Aged 60 [...] Insurance N [employer] Care Teams General Medical Practitioner Relationship Specialty Start Date End Date Seth Louie MD [address] [place] [id number] PCP - General Internal Medicine 07/19/23
--- OUTSIDE RECORDS SUMMARY | 2024-11-07 08:25 | XMS_ITS | Encounter Summary ---
Author Organization [facility] Address [address] [place] [address] Care Team Providers Care Pantry Attendant Name Role Phone Kira Vargas MD Primary Care Provider [phone] Encounter Details Date Type Department Care Team (Late st Contact Info) Description 02/10/2021 Transcribe Orders [facility] [address] [place] [address] Susanna Schumacher PharmD Social History Tobacco Use [...] on filedocumented in this encounter Care Teams Pantry Attendant Relationship Specialty Start Date End Date Kira Vargas MD [address] [place] [id number] PCP - General Family Medicine 07/20/17 02/18/24 documented as of this encounter
== END 2024-11-07 09:20 | disposition home or self-care (01) ==
LOC: HO.HMCC 08:21
PROVIDERS: PCP Internal Medicine; Visit Provider Internal Medicine
DX: R14.0 Abdominal distension (gaseous) (principal); R14.1 Gas pain; H00.015 Hordeolum externum left lower eyelid

== ENCOUNTER 2024-11-11 08:47 | Outpatient (REF) | payer OTHER, SELFPAY ==
--- OUTSIDE RECORDS SUMMARY | 2024-08-07 10:00 | XMS_ITS ---
Author Organization [facility] Address [address] [place] [address] Care Team Providers Care Weekend Caregiver Name Role Phone Mariaa CLIFTON, Donna Kevin Primary Care Provider Un available Harris Erica Gracia [phone] Encounters Encounter Location Date Provider Diagnosis [address] [address] 08/07/2024 Erica Harris Plan Of Treatment Next Appt Details Provider Name:Erica Iglesias , 11/21/2024 09:15:00 AM, [address] [facility], [place], [address], Progress Notes * Kori BARRON LDOB:1955 (68 yo F)Acc No.[id number]:08/07/2024 Progress Note Patient: Gita Kori MILLS Provider: Paula Iglesias DPM :1955 A ge:68 Y S ex:Female Date:08/07/2024 Address:[address] [place] [address] Pcp:Amena Ramos Subjective: * Chief Complaints: * [...] 08/07/2024 Generated for Krysten Graham/Mayito on: 0 11/11/2024 08:58 AM EDT
--- OUTSIDE RECORDS SUMMARY | 2024-11-11 08:59 | XMS_ITS | Clinical Summary ---
Author Organization [employer] Address [address] [place] [address] Care Team Providers Care Workforce Development Assistant Name Role Phone Seth Louie MD [...] intervention , Patient to reach out to [facility] team as needed, and Patient [...] Insurance N [employer] Care Teams Workforce Development Assistant Relationship Specialty Start Date End Date Seth Louie MD [address] [place] [id number] PCP - General Internal Medicine 07/19/23
--- OUTSIDE RECORDS SUMMARY | 2024-11-11 08:59 | XMS_ITS | Encounter Summary ---
Author Organization [facility] Address [address] [place] [address] Care Team Providers Care Optical Effects Layout Person Name Role Phone Kira Vargas MD Primary Care Provider [phone] Encounter Details Date Type Department Care Team (Late st Contact Info) Description 02/10/2021 Transcribe Orders [facility] Department [address] [place] [address] Susanna Schumacher PharmD Social History Tobacco Use [...] on filedocumented in this encounter Care Teams Optical Effects Layout Person Relationship Specialty Start Date End Date Kira Vargas MD [address] [place] [id number] PCP - General Family Medicine 07/20/17 02/18/24 documented as of this encounter
[2024-11-11 11:09] LABS: Free T4 (Free Thyroxine) 1.02 ng/dL (0.71-1.85); Thyroid Stimulating Hormone 0.53 uIU/mL (0.32-4.0)
[2024-11-12 19:53] LABS: Immunoglobulin A 110 mg/dL (70-320)
[2024-11-13 19:47] LABS: Prot Elec - Albumin 4.2 g/dL (3.8-4.8); Prot Elec - Alpha1 0.2 g/dL (0.2-0.3); Prot Elec - Alpha2 0.6 g/dL (0.5-0.9); Prot Elec - Beta 1 0.4 g/dL (0.4-0.6); Prot Elec - Beta 2 0.3 g/dL (0.2-0.5); Prot Elec - Gamma 0.7 g/dL (0.8-1.7); Prot Elec - Total Protein 6.4 g/dL (6.1-8.1)
== END 2024-11-11 08:48 | disposition home or self-care (01) ==
LOC: HO.HMGCLDS 08:47
PROVIDERS: PCP Internal Medicine; Referring Provider Internal Medicine Endocrinology, Diabetes & Metabolism; Visit Provider Internal Medicine
DX: M81.0 Age-related osteoporosis without current pathological fracture (principal); R14.0 Abdominal distension (gaseous); R11.0 Nausea
CPT/HCPCS: 36415; 82784; 84100; 84165; 84439; 84443; 86335; 86364

== ENCOUNTER 2024-11-11 09:15 | Outpatient (AMB) | payer OTHER, SELFPAY ==
[2024-11-11 09:18] VITALS: BP 112/62; PULSE 57; TEMP 36.8; O2SAT 98; BMI 20.8
--- NOTE | 2024-11-11 09:18 | AM.OFFWIN_ITS ---
Intake Vital Signs 11/11/24 09:18 Height 5 ft 3 in Weight 117 lb 6 oz BMI 20.8 BP 112/62 Blood Pressure Location Rt brachial Position Sitting Pulse 57 Pulse Source Pulse Oximeter Temp 98.2 F Temp Source Oral Pulse Oximetry (%) 98 Oxygen Delivery Method Room Air Intake Visit Reasons: EP no appetite, nausea Intake Note: Patient states no appetite times 2-3 months. And nauseous when she is able to eat a bit Patient Tobacco Use Status: Former Tobacco user Manager Laboratory Required: No Is last menstrual period known: No Post menopausal: Yes Patient : No Allergies No Known Allergies Allergy (Verified 11/11/24 09:23) Do you need a note to return to daycare/school/sports/work: No HPI HPI Comments History of Present Illness Details Patient is a 68yo F who presents to office with unwell feeling Ongoing x 2-3 months SHe had PCP virtual exam last week due to symptoms Got blood work done this am Barrium swallow ordered for January 2025 Was recommended to avoid dairy since last week after she completes blood work States abdominal discomfort and bloating SHe said if she does not eat, her abdomen feels fine Worse when eating + nausea without vomiting 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; was eating a lot of cottage cheese She admits to weight loss She said she drinks a lot of water States bowel movements are a little more constipated; no blood or melena No abdominal pain but doesnt feel good +burps and feels gasy + passing flatulance; multiple times in the morning No SOB or CP She tried 2 omeprazole yesterday which helped her eat dinner Last colonoscopy was 2021 and she doesnt report abnormal findings [facility] Medical History Screening for diabetes mellitus Leukopenia Bilateral hearing loss Osteoporosis Bilateral bunions Anxiety and depression Surgical History History of bunionectomy of both great toes History of tonsillectomy History of tubal ligation History of appendectomy Family History (Updated 11/11/24 @ 09:29 by Minerva Strange MA) Mother Acute myocardial infarction Alcoholism Substance use disorder Mental health disorder Father Atrial fibrillation TIA (transient ischemic attack) Substance use disorder Alcoholism Brother Alcoholism Acute myocardial infarction Mental health disorder Sister Alcoholism Substance use disorder Brother Substance use disorder Social History Housing: Condominium Alcohol intake: former Year quit: Used Comment: Used to drink cocktails, quit 35 years Patient Tobacco Use Status: Former Tobacco user Years Smoked: 8 years , quit 35 years ago e-Cigarette/Vaping Use: Never Used Substance Use Type: Marijuana Patient : No service: No Current occupational status: retired Cognitive needs: No Hearing needs: No Vision needs: Yes Review of Systems Const Denies body aches, Denies chills, Reports fatigue, Denies fever(s), Reports lethargy, Denies night sweats, Reports poor appetite and Reports weight loss Eyes Denies change in vision ENT Denies dysphagia, Denies dizziness, Denies nasal congestion and Denies sore throat Card Denies chest pain, Denies syncope and Denies dyspnea Resp Denies cough and Denies dyspnea GI Denies abdominal pain, Reports belching, Denies melena, Reports bloating, Denies hematochezia, Reports change in bowel habits, Denies tenesmus, Denies GI cram ping, Denies dysphagia, Reports excessive flatus, Denies heartburn, Denies fecal incontinence, Denies diarrhea, Denies loose stools, Reports nausea and Denies vomiting Denies difficulty voiding Musc Denies myalgias Skin/Breast Denies rash Neuro Denies dizziness and Denies syncope Endo Reports fatigue Physical Exam Vital Signs: Last Vital Signs Temp 98.2 F 11/11/24 09:18 Pulse 57 11/11/24 09:18 BP 112/62 11/11/24 09:18 Pulse Ox 98 11/11/24 09:18 Oxygen Delivery Method Room Air 11/11/24 09:18 BMI result Body Mass Index 20.8 General: Non-toxic, NAD. Speaking full sentences. Skin: Warm dry throughout Eye: PERRL, EOMI HENT: Airway patent. Uvula midline. No pharyngeal erythema or edema. No SENIOR DATA MODELER. Bilateral canals clear. TM non-erythematous, non-bulging. No TM perforation or hemotympanum noted. Respiratory: CTA bilaterally. No wheezes, rales or rhonchi Cardiac: RRR. No murmur Abdominal: BS present. Non-tender throughout. No palpable masses. No abdominal distention or pusatile mass. MSK: Full ROM extremities. Neurology: Alert. CN 2-12 grossly intact. No aphasia or facial droop. Gait without abnormality Psych: Good mood and affect Assessment & Plan Assessment & Plan (1) Weight loss: Code(s): R63.4 - Abnormal weight loss Plan: Patient seen and evaluated. She just had work up with blood work completed this am and no labs have returned Primary care is aware of ongoing issue and is continuing workup Pt states she came today in order to try to chu the barium swallow but I discussed with pt that I can not put in chu on orders and have her see GI any faster We discussed that she should be taking the omeprazole as prescrtibed for her symptoms regularly to help avoid symptomatic worsening We discussed s/s that would prompt an ER visit for severe pain, inability to have BM, incontinence, syncope etc Discussed importance of increasing fluids and eating bland diet Pt does not have any acute abdomen on examination and vitals are stable Discussed need to continue FU with her PCP and call with questions Patient gave verbal understanding and had no additional questions or concerns at time of discharge All questions answered (2) Decreased appetite: Code(s): R63.0 - Anorexia Plan: see above Coding Level of Care Code Est Pt Level 3 (79128) Diagnoses Weight loss R63.4 Decreased appetite R63.0
== END 2024-11-11 09:57 | disposition home or self-care (01) ==
PROVIDERS: PCP Internal Medicine; Visit Provider Physician Assistant
DX: R63.4 Abnormal weight loss (principal); R63.0 Anorexia

== ENCOUNTER 2024-11-12 12:00 | Outpatient (REF) | payer OTHER, SELFPAY ==
--- OUTSIDE RECORDS SUMMARY | 2024-08-07 10:00 | XMS_ITS ---
Author Organization [facility] Address [address] [place] [address] Care Team Providers Care Rn Ostomy Name Role Phone Mariaa CLIFTON, Donna Kevin Primary Care Provider Un available Harris Erica Gracia [phone] Encounters Encounter Location Date Provider Diagnosis [address] [address] 08/07/2024 Erica Harris Plan Of Treatment Next Appt Details Provider Name:Erica Iglesias , 11/21/2024 09:15:00 AM, [address] [facility], [place], [address], Progress Notes * Kori BARRON LDOB:1955 (68 yo F)Acc No.[id number]:08/07/2024 Progress Note Patient: Gita Kori MILLS Provider: Paula Iglesias DPM :1955 A ge:68 Y S ex:Female Date:08/07/2024 Address:[address] [place] [address] Pcp:Amena Ramos Subjective: * Chief Complaints: * [...] DPM Date: 0 08/07/2024 Generated for Krysten Lim on: 0 11/12/2024 01:30 PM EDT
--- OUTSIDE RECORDS SUMMARY | 2024-11-12 13:31 | XMS_ITS | Encounter Summary ---
Author Organization [facility] Address [address] [place] [address] Care Team Providers Care Highway Maintenance Crew Worker Name Role Phone Kira Vargas MD Primary Care Provider [phone] Encounter Details Date Type Department Care Team (Late st Contact Info) Description 02/10/2021 Transcribe Orders [facility] Department [address] [place] [address] Susanna Schumacher PharmD Social History Tobacco Use [...] on filedocumented in this encounter Care Teams Highway Maintenance Crew Worker Relationship Specialty Start Date End Date Kira Vargas MD [address] [place] [id number] PCP - General Family Medicine 07/20/17 02/18/24 documented as of this encounter
--- OUTSIDE RECORDS SUMMARY | 2024-11-12 13:31 | XMS_ITS | Clinical Summary ---
Author Organization [employer] Address [address] [place] [address] Care Team Providers Care Chief Relay Tester Name Role Phone Seth Louie MD Primary [...] intervention , Patient to reach out to [facility] team as needed, and Patient [...] this topic [place] [id number] Care Teams Chief Relay Tester Relationship Specialty Start Date End Date Seth Louie MD [address] [place] [id number] PCP - General Internal Medicine 07/19/23
[2024-11-12 17:34] LABS: Creatinine, mg/dL 123.28
[2024-11-12 17:45] LABS: Total Volume 24 Hour Urine 725 mL
[2024-11-14 18:39] LABS: Calcium/Creatinine Ratio 195 mg/g creat (30-275); Creatinine 24Hr Urine 0.89 g/24 h (0.50-2.15)
== END 2024-11-12 12:01 | disposition home or self-care (01) ==
LOC: HO.HMGCLNP 12:00
PROVIDERS: PCP Internal Medicine; Visit Provider Internal Medicine Endocrinology, Diabetes & Metabolism
DX: M81.0 Age-related osteoporosis without current pathological fracture (principal)
CPT/HCPCS: 82340; 82570